=== PATIENT | male | born 1985 | race Caucasian/White ===

== ENCOUNTER 2023-01-25 17:04 | Emergency (ER) | payer OTHER, SELFPAY ==
[2023-01-25] VITALS (37 sets, daily range): BP systolic 109–136; BP diastolic 60–84; PULSE 75–103; RESP 0–26; TEMP 36.8; O2SAT 94–98; BMI 29.9
--- NOTE | 2023-01-25 17:21 | XR_ITS ---
The [address] [address] Patient Name: LIMA CASTILLO MRN: [id number] date: 1985 Sex: M Assigned Patient Location: ED.MAIN Current Patient Location: ER Accession/Order Number: [id number] Exam Date: 01/25/2023 17:30 Report Date: 01/25/2023 17:49 At the request of: DENIZ AWAD Procedure: XR chest 1V EXAMINATION: XR chest 1V HISTORY: Chest pain COMPARISON: X-ray 11/21/2021 TECHNIQUE: Portable chest FINDINGS: The lung parenchyma is free of consolidation or infiltrate. No pneumothorax or pleural effusion. The cardiac, mediastinal and hilar contours are normal. The visualized osseous structures exhibit no gross abnormality. XR/XR chest 1V IMPRESSION: No acute cardiopulmonary abnormality. Electronically authenticated by: FLORENCE WALTERS Date: 01/25/2023 17:49
--- NOTE | 2023-01-25 17:21 | ECG_ITS ---
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
--- NOTE | 2023-01-25 17:32 | ED_ITS ---
HPI - Chest Pain General Chief Complaint: Chest Pain Stated Complaint: CHEST PAIN Time Seen by Provider: 01/25/23 17:16 Source: patient Mode of arrival: walk-in Limitations: no limitations History of Present Illness HPI narrative: 37-year-old male presents for chest pain. He's had it continuously since 7:30 this morning ten hours ago. It's in the middle part of his chest and it doesn't radiate to his arms. His upper back is hurting a bit as well and he had no trauma fever or cough or unusual activity. He has had a pacemaker for three years for sick sinus syndrome. He states when he had his heart catheterization three years ago they found no blockage at all. The pain is moderate and a pressure. Related Data Home Medications Medication Instructions Recorded Confirmed AMPHETAMINE SALTS 10 mg PO DAILY 01/25/23 01/25/23 bupropion HCl 150 mg 24 hr tablet, 300 mg PO BID 01/25/23 01/25/23 extended release fludrocortisone 0.1 mg tablet 0.1 mg PO DAILY 01/25/23 01/25/23 lamotrigine 200 mg tablet 200 mg PO DAILY 01/25/23 01/25/23 (Lamictal) midodrine 10 mg tablet 10 mg PO TID PRN hypotension 01/25/23 01/25/23 pantoprazole 40 mg tablet,delayed 40 mg PO DAILY 01/25/23 01/25/23 release (Protonix) zolpidem 5 mg tablet (Ambien) 5 mg PO .BED 01/25/23 01/25/23 Allergies Allergy/AdvReac Type Severity Reaction Status Date / Time NSAIDS (Non-Steroidal AdvReac Intermediate Verified 01/25/23 17:17 Anti-Inflamma Review of Systems ROS Narrative A ten point review of systems is negative except as noted above. Exam Narrative Exam Narrative: Nurses note and vital signs reviewed and patient is not hypoxic. General: The patient appears well and in no apparent distress. Patient is resting comfortably on cart. Skin: Warm, dry, no pallor noted. There is no rash noted. Head: Normocephalic, atraumatic Eye: Normal conjunctiva, no drainage Ears, Nose, Mouth, and Throat: oral mucosa is moist. Nares patent. Cardiovascular: Regular Rate and Rhythm Respiratory: Patient is in no distress, no accessory muscle use, lungs are clear to auscultation, no wheezing, rales or rhonchi Back: non-tender GI: soft and nontender Musculoskeletal: The patient has no evidence of calf tenderness, no pitting edema, symmetrical pulses noted bilaterally Neurological: A&O, normal speech Psychiatric: Cooperative Constitutional Vital Signs, click to edit/add: Last Vital Signs Temp 98.2 F 01/25/23 17:09 Pulse 96 H 01/25/23 18:00 Resp 21 01/25/23 18:00 BP 136/84 01/25/23 17:30 Pulse Ox 96 01/25/23 17:50 O2 Del Method Room Air 01/25/23 17:09 Course Vital Signs Vital signs: Vital Signs Temperature 98.2 F 01/25/23 17:09 Pulse Rate 103 H 01/25/23 17:09 Respiratory Rate 26 H 01/25/23 17:09 Blood Pressure 132/83 01/25/23 17:09 Pulse Oximetry 98 01/25/23 17:09 Oxygen Delivery Method Room Air 01/25/23 17:09 Temperature 98.2 F 01/25/23 17:09 Pulse Rate 96 H 01/25/23 18:00 Respiratory Rate 21 01/25/23 18:00 Blood Pressure 136/84 01/25/23 17:30 Pulse Oximetry 96 01/25/23 17:50 Oxygen Delivery Method Room Air 01/25/23 17:09 MDM - Chest Pain MDM Narrative Medical decision making narrative: initial troponin is negative with repeat ordered. The patient will be signed out to Dr. Nolasco at 7 PM. Differential Diagnosis Differential diagnosis: Likely pneumothorax, unstable angina pectoris, atypical chest pain, st elevation myocardial infarction, costochondritis and chest pain Lab Data Attestation: I reviewed the patient's lab results. Labs: Lab Results 01/25/23 Range/Units 17:30 WBC 9.8 (4.0-11.0) 10^3/uL RBC 4.65 L (4.70-6.10) 10^6/uL Hgb 13.7 L (14.0-18.0) g/dL Hct 40.6 L (42.0-54.0) % MCV 87.3 (80.0-94.0) fL MCH 29.5 (25.9-34.0) pg MCHC 33.7 (29.9-35.2) g/dL RDW 12.7 (11.0-15.0) % Plt Count 253 (150-450) 10^3/uL MPV 9.9 (9.5-13.5) fL Neut % (Auto) 81.0 H (43.0-75.0) % Lymph % (Auto) 10.5 L (20.5-60.0) % [place] % (Auto) 6.6 (1.7-12.0) % Eos % (Auto) 1.3 (0.9-7.0) % Baso % (Auto) 0.3 (0.2-2.0) % Neut # (Auto) 8.0 H (1.4-6.5) 10^3/uL Lymph # (Auto) 1.0 L (1.2-3.8) 10^3/uL [place] # (Auto) 0.7 (0.3-0.8) 10^3/uL Eos # (Auto) 0.1 (0.0-0.7) 10^3/uL Baso # (Auto) 0.0 (0.0-0.1) 10^3/uL Abs Immat Gran (auto) 0.03 (0.00-0.03) 10^3/uL Imm/Tot Granulo (auto) 0.3 (0.0-0.5) % Sodium 142 (136-145) mmol/L Potassium 3.4 L (3.5-5.1) mmol/L Chloride 104 (98-107) mmol/L Carbon Dioxide 28.4 (21.0-32.0) mmol/L Anion Gap 13.0 BUN 16.0 (7.0-18.0) mg/dL Creatinine 0.99 (0.70-1.30) mg/dL Est GFR ( Amer) >60 (>=60) Est GFR (Non-Af Amer) >60 (>=60) BUN/Creatinine Ratio 16.2 Glucose 89 (74-106) mg/dL Calcium 9.0 (8.5-10.1) mg/dL Troponin I High Sens 4.1 (4.0-76.1) pg/mL Imaging Data Chest x-ray: Radiologist's impression: Procedure: XR chest 1V EXAMINATION: XR chest 1V HISTORY: Chest pain COMPARISON: X-ray 11/21/2021 TECHNIQUE: Portable chest FINDINGS: The lung parenchyma is free of consolidation or infiltrate. No pneumothorax or pleural effusion. The cardiac, mediastinal and hilar contours are normal. The visualized osseous structures exhibit no gross abnormality. IMPRESSION: No acute cardiopulmonary abnormality. Electronically authenticated by: FLORENCE WALTERS Date: 01/25/2023 17: ECG Data Attestation: I personally reviewed and interpreted this ECG as follows: (EKG on my interpretation shows atrial paced rhythm with a rate of 101 and no acute change.) Discharge Plan Discharge Patient Disposition: Still a Patient
[2023-01-25 17:37] LABS: Basophils Percent Auto 0.3 % (0.2-2.0); Eosinophils Absolute Auto 0.1 10^3/uL (0.0-0.7); Eosinophils Percent Auto 1.3 % (0.9-7.0); Hematocrit 40.6 % (42.0-54.0); Hemoglobin 13.7 g/dL (14.0-18.0); Immature Granulocytes Abs Auto 0.03 10^3/uL (0.00-0.03); Immature Granulocytes Pct Auto 0.3 % (0.0-0.5); Lymphocytes Percent Auto 10.5 % (20.5-60.0); Mean Corpuscular HGB Conc 33.7 g/dL (29.9-35.2); Mean Corpuscular Hemoglobin 29.5 pg (25.9-34.0); Mean Corpuscular Volume 87.3 fL (80.0-94.0); Mean Platelet Volume 9.9 fL (9.5-13.5); Monocytes Absolute Auto 0.7 10^3/uL (0.3-0.8); Monocytes Percent Auto 6.6 % (1.7-12.0); Platelet Count 253 10^3/uL (150-450); Red Blood Count 4.65 10^6/uL (4.70-6.10); Red Cell Distribution Width 12.7 % (11.0-15.0); White Blood Count 9.8 10^3/uL (4.0-11.0)
[2023-01-25 17:54] LABS: BUN Creatinine Ratio 16.2; Carbon Dioxide 28.4 mmol/L (21.0-32.0); Chloride 104 mmol/L (98-107); Estimated GFR (African America >60 (>=60); Estimated GFR (Non-African Ame >60 (>=60); Glucose 89 mg/dL (74-106); Potassium 3.4 mmol/L (3.5-5.1); Sodium 142 mmol/L (136-145); Troponin I High Sensitivity 4.1 pg/mL (4.0-76.1)
--- NOTE | 2023-01-25 19:36 | ECG_ITS ---
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
--- NOTE | 2023-01-25 19:43 | CT_ITS ---
[address] [address] Patient Name: LIMA CASTILLO MRN: [id number] date: 1985 Sex: M Assigned Patient Location: ER Current Patient Location: ER Accession/Order Number: [id number] Exam Date: 01/25/2023 20:45 Report Date: 01/25/2023 21:37 At the request of: MORA MARKER Procedure: CT angio chest CTA CHEST. INDICATION: History. COMPARISON: None available. TECHNIQUE: CT pulmonary angiogram. Initially, limited axial non-contrast images through chest obtained to establish proper bolus timing. Subsequently, contrast enhanced axial CT images were obtained through the chest. Axial, sagittal and coronal reformatted maximum intensity projection images and / or 3D volume rendered images created. FINDINGS: PULMONARY ARTERIES: No intraluminal filling defects within the central or segmental pulmonary arteries to suggest pulmonary embolism.. Normal RV:LV ratio (<1). AORTA: The thoracic aorta diameter is normal without aneurysm or dissection. LUNGS: There are right lower lobe airspace opacities. No pleural effusions.. No pneumothorax. LYMPH NODES: No enlarged mediastinal lymph nodes by CT criteria. HEART: Heart size is normal. No pericardial effusion. UPPER ABDOMEN: Images of the upper abdomen demonstrate no abnormality. MUSCULOSKELETAL: No acute osseous abnormality. CT/CT angio chest IMPRESSION: 1. No pulmonary thromboembolic disease. No aortic aneurysm or dissection. 2. Right lower lobe airspace opacities suggestive of pneumonia. Correlate clinically and recommend follow-up imaging. Electronically authenticated by: FLORES RICO Date: 01/25/2023 21:37
[2023-01-25] MEDS: ACETAMINOPHEN 325 MG TABLET 650 MG PO (20:00)
[2023-01-25 20:19] LABS: Troponin I High Sensitivity <4.0 pg/mL (4.0-76.1)
--- NOTE | 2023-01-25 21:52 | ED_ITS ---
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 Patient was signed out to me at shift change pending repeat troponin. I was alerted that he was having ongoing pain and a repeat EKG was ordered that was a paced rhythm at 87 bpm no acute changes. He also complained of a headache and was medicated with some Tylenol. Delta troponin and initial troponin were both normal at 4. CTA of the chest was done because the patient states he feels like he felt when his ejection fraction was very low and he was developing congestive heart failure. CTA of the chest shows a right lower lobe infiltrate. The patient has not had a fever or cough. His vital signs are stable. He will be medicated emergency department with Levaquin and discharged home with a Rx for Levaquin to use for the next 10 days. He is otherwise hemodynamically stable and in agreement with this plan. Related Data Home Medications Medication Instructions Recorded Confirmed AMPHETAMINE SALTS 10 mg PO DAILY 01/25/23 01/25/23 bupropion HCl 150 mg 24 hr tablet, 300 mg PO BID 01/25/23 01/25/23 extended release fludrocortisone 0.1 mg tablet 0.1 mg PO DAILY 01/25/23 01/25/23 lamotrigine 200 mg tablet 200 mg PO DAILY 01/25/23 01/25/23 (Lamictal) midodrine 10 mg tablet 10 mg PO TID PRN hypotension 01/25/23 01/25/23 pantoprazole 40 mg tablet,delayed 40 mg PO DAILY 01/25/23 01/25/23 release (Protonix) zolpidem 5 mg tablet (Ambien) 5 mg PO .BED 01/25/23 01/25/23 Allergies Allergy/AdvReac Type Severity Reaction Status Date / Time NSAIDS (Non-Steroidal AdvReac Intermediate Verified 01/25/23 17:17 Anti-Inflamma Exam Constitutional Vital Signs, click to edit/add: Last Vital Signs Temp 98.2 F 01/25/23 17:09 Pulse 88 01/25/23 22:20 Resp 13 01/25/23 22:20 BP 122/71 01/25/23 22:01 Pulse Ox 97 01/25/23 22:01 O2 Del Method Room Air 01/25/23 17:09 Course Vital Signs Vital signs: Vital Signs Temperature 98.2 F 01/25/23 17:09 Pulse Rate 103 H 01/25/23 17:09 Respiratory Rate 26 H 01/25/23 17:09 Blood Pressure 132/83 01/25/23 17:09 Pulse Oximetry 98 01/25/23 17:09 Oxygen Delivery Method Room Air 01/25/23 17:09 Temperature 98.2 F 01/25/23 17:09 Pulse Rate 88 01/25/23 22:20 Respiratory Rate 13 01/25/23 22:20 Blood Pressure 122/71 01/25/23 22:01 Pulse Oximetry 97 01/25/23 22:01 Oxygen Delivery Method Room Air 01/25/23 17:09 MDM - Chest Pain Lab Data Attestation: I reviewed the patient's lab results. Lab results narrative: Labs are normal, troponin normal ?2. BNP is normal at 32. Normal CBC w Diff. No bandemia. Labs: Lab Results 01/25/23 01/25/23 Range/Units 17:30 19:28 WBC 9.8 (4.0-11.0) 10^3/uL RBC 4.65 L (4.70-6.10) 10^6/uL Hgb 13.7 L (14.0-18.0) g/dL Hct 40.6 L (42.0-54.0) % MCV 87.3 (80.0-94.0) fL MCH 29.5 (25.9-34.0) pg MCHC 33.7 (29.9-35.2) g/dL RDW 12.7 (11.0-15.0) % Plt Count 253 (150-450) 10^3/uL MPV 9.9 (9.5-13.5) fL Neut % (Auto) 81.0 H (43.0-75.0) % Lymph % (Auto) 10.5 L (20.5-60.0) % [place] % (Auto) 6.6 (1.7-12.0) % Eos % (Auto) 1.3 (0.9-7.0) % Baso % (Auto) 0.3 (0.2-2.0) % Neut # (Auto) 8.0 H (1.4-6.5) 10^3/uL Lymph # (Auto) 1.0 L (1.2-3.8) 10^3/uL [place] # (Auto) 0.7 (0.3-0.8) 10^3/uL Eos # (Auto) 0.1 (0.0-0.7) 10^3/uL Baso # (Auto) 0.0 (0.0-0.1) 10^3/uL Abs Immat Gran (auto) 0.03 (0.00-0.03) 10^3/uL Imm/Tot Granulo (auto) 0.3 (0.0-0.5) % Sodium 142 (136-145) mmol/L Potassium 3.4 L (3.5-5.1) mmol/L Chloride 104 (98-107) mmol/L Carbon Dioxide 28.4 (21.0-32.0) mmol/L Anion Gap 13.0 BUN 16.0 (7.0-18.0) mg/dL Creatinine 0.99 (0.70-1.30) mg/dL Est GFR ( Amer) >60 (>=60) Est GFR (Non-Af Amer) >60 (>=60) BUN/Creatinine Ratio 16.2 Glucose 89 (74-106) mg/dL Calcium 9.0 (8.5-10.1) mg/dL Troponin I High Sens 4.1 <4.0 L (4.0-76.1) pg/mL NT-Pro-B Natriuret Pep 32.0 (<=450.0) pg/mL Heart Score History: Slightly/Non-Suspicious ECG: NS Repolarization Age: <45 years Risk Factors: No Risk Factors Troponin: <Normal Limit Total Heart Score Recommendations & Risks:: 1 Discharge Plan Discharge Chief Complaint: Chest Pain Clinical Impression: Chest pain, RLL pneumonia Patient Disposition: Home, Self-Care Time of Disposition Decision: 22:00 Condition: Good Prescriptions / Home Meds: No Action midodrine 10 mg tablet 10 mg PO TID PRN (Reason: hypotension) Rx Instructions: do not give last dose of day after 6PM or within 4 hrs of bedtime lamotrigine [Lamictal] 200 mg tablet 200 mg PO DAILY bupropion HCl 150 mg tablet extended release 24 hr 300 mg PO BID pantoprazole [Protonix] 40 mg tablet,delayed release (DR/EC) 40 mg PO DAILY fludrocortisone 0.1 mg tablet 0.1 mg PO DAILY AMPHETAMINE SALTS 10 mg PO DAILY zolpidem [Ambien] 5 mg tablet 5 mg PO .BED Instructions: Chest Pain (ED), Community Acquired Pneumonia (ED) Stand Alone Forms: Portal Instructions Referrals: Physician,Non-Staff, MD [Primary Care Provider] - 1 week Discharge Date/Time: 01/25/23 23:50
[2023-01-25] MEDS: LEVOFLOXACIN IN DEXTROSE 5 % 750 MG/150 ML IV.SOLN 100 MG IV (22:10)
== END 2023-01-25 23:50 | disposition home or self-care (01) ==
PROVIDERS: Emergency Medicine; Emergency Provider Emergency Medicine
DX: J18.9 Pneumonia, unspecified organism (principal); R07.9 Chest pain, unspecified; G90.A Postural orthostatic tachycardia syndrome [POTS]; I49.5 Sick sinus syndrome; Z79.899 Other long term (current) drug therapy
CPT/HCPCS: 36415; 71045; 71275; 80048; 83880; 84484; 85025; 93005; 96365; 96366; 99285; Q9967

== ENCOUNTER 2023-09-16 17:10 | Emergency (ER) | payer OTHER, SELFPAY ==
[2023-09-16] VITALS (8 sets, daily range): BP systolic 119–142; BP diastolic 72–92; PULSE 76–88; TEMP 36.9; O2SAT 96–99; BMI 31.3
--- NOTE | 2023-09-16 17:22 | ECG_ITS ---
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
--- NOTE | 2023-09-16 17:23 | ED.GENADUL1 ---
HPI HPI - General Adult General Chief complaint: Chest Pain Stated complaint: CHEST PRESSURE, SOB, FATIGUE Time Seen by Provider: 09/16/23 17:20 History of Present Illness HPI narrative: Patient is a 37-year-old male who presents to the emergency department for the evaluation of continued and worsening chest pressure, generalized fatigue and feeling short of breath. He has a history of sick sinus syndrome and has a pacemaker in place. He sees [facility] cardiology for that. He states he was seen mid August for continued central chest pressure and fatigue with a sensation of palpitations and atrial tachycardia which is not uncommon for him. He states an EP study with ablation was ordered as well as an outpatient echo although this cannot be completed for another month. Patient states he has had no fevers, chills, cough, congestion. No swelling of the extremities. No vomiting or diarrhea. Related Data Home Medications ?Medication ?Instructions ?Recorded ?Confirmed AMPHETAMINE SALTS 10 mg PO DAILY 01/25/23 09/16/23 bupropion HCl 150 mg 24 hr tablet, See Rx Instructions PO BID 01/25/23 09/16/23 extended release fludrocortisone 0.1 mg tablet 0.1 mg PO DAILY 01/25/23 09/16/23 lamotrigine 200 mg tablet 200 mg PO DAILY 01/25/23 09/16/23 (Lamictal) midodrine 10 mg tablet 10 mg PO TID PRN hypotension 01/25/23 09/16/23 pantoprazole 40 mg tablet,delayed 40 mg PO DAILY 01/25/23 09/16/23 release (Protonix) zolpidem 5 mg tablet (Ambien) 5 mg PO .BED PRN insomnia 01/25/23 09/16/23 Allergies Allergy/AdvReac Type Severity Reaction Status Date / Time NSAIDS (Non-Steroidal AdvReac Intermediate Verified 09/16/23 17:20 Anti-Inflamma Opioid HPI Opioid Management Most Recent Opioid Data: Last Pain Scale 6 09/16/23 18:07 Last ED Pain Assessment 09/16/23 18:07 Last MAR Pain Assessment 09/16/23 17:44 Review of Systems ROS Constitutional Denies: fever or chills Ears, nose, mouth, and throat Denies: throat pain or nasal congestion Cardiovascular Reports: chest pain Respiratory Reports: shortness of breath; Denies: cough Gastrointestinal Denies: nausea or vomiting Musculoskeletal Denies: back pain Integumentary/Breast Denies: rash Endocrine Denies: excessive urination Hematologic/Lymphatic Denies: easy bruising or easy bleeding Exam Narrative Exam Narrative: Gen.: Awake, alert, in no distress Head: Normocephalic, atraumatic ENT: Moist mucous membranes Respiratory: No respiratory distress, lungs clear bilaterally Cardio: Regular rate and rhythm Extremities: Moves extremities equally, no pedal edema Psych: Normal mood and affect Neuro: No focal neuro deficit Skin: Warm, dry, intact Constitutional Vital Signs, click to edit/add: Last Vital Signs Temp 98.5 F 09/16/23 17:22 Pulse 76 09/16/23 19:00 Resp 17 09/16/23 19:00 BP 119/72 09/16/23 18:30 Pulse Ox 98 09/16/23 19:00 O2 Del Method Room Air 09/16/23 17:22 Course Vital Signs Vital signs: Vital Signs Pulse Rate 88 09/16/23 17:18 Respiratory Rate 21 H 09/16/23 17:18 Temperature 98.5 F 09/16/23 17:22 Pulse Rate 76 09/16/23 19:00 Respiratory Rate 17 09/16/23 19:00 Blood Pressure 119/72 09/16/23 18:30 Pulse Oximetry 98 09/16/23 19:00 Oxygen Delivery Method Room Air 09/16/23 17:22 Medical Decision Making [facility] Narrative Medical decision making narrative: EKG is unremarkable, lab studies including Troponin and D-dimer are within normal limits. Chest x-ray is unremarkable, case discussed with Dr. Reaves [facility] cardiology was in agreement with treatment plan. 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 Patient is stable at time of discharge. Medical Records Medical records reviewed: Yes I reviewed the patient's medical records Lab Data Lab results reviewed: Yes I reviewed the patient's lab results Labs: Lab Results 09/16/23 Range/Units 17:30 WBC 6.7 (4.0-11.0) 10^3/uL RBC 4.87 (4.70-6.10) 10^6/uL Hgb 13.8 L (14.0-18.0) g/dL Hct 42.1 (42.0-54.0) % MCV 86.4 (80.0-94.0) fL MCH 28.3 (25.9-34.0) pg MCHC 32.8 (29.9-35.2) g/dL RDW 12.7 (11.0-15.0) % Plt Count 311 (150-450) 10^3/uL MPV 9.7 (9.5-13.5) fL Neut % (Auto) 72.8 (43.0-75.0) % Lymph % (Auto) 16.8 L (20.5-60.0) % [place] % (Auto) 7.1 (1.7-12.0) % Eos % (Auto) 2.3 (0.9-7.0) % Baso % (Auto) 0.8 (0.2-2.0) % Neut # (Auto) 4.9 (1.4-6.5) 10^3/uL Lymph # (Auto) 1.1 L (1.2-3.8) 10^3/uL [place] # (Auto) 0.5 (0.3-0.8) 10^3/uL Eos # (Auto) 0.2 (0.0-0.7) 10^3/uL Baso # (Auto) 0.1 (0.0-0.1) 10^3/uL Abs Immat Gran (auto) 0.01 (0.00-0.03) 10^3/uL Imm/Tot Granulo (auto) 0.2 (0.0-0.5) % PT 10.2 (9.0-11.6) sec INR 0.96 D-Dimer 0.27 (<=0.59) mg/L FEU Sodium 143 (136-145) mmol/L Potassium 3.8 (3.5-5.1) mmol/L Chloride 106 (98-107) mmol/L Carbon Dioxide 30.3 (21.0-32.0) mmol/L Anion Gap 10.5 BUN 15.0 (7.0-18.0) mg/dL Creatinine 0.90 (0.70-1.30) mg/dL Est GFR ( Amer) >60 (>=60) Est GFR (Non-Af Amer) >60 (>=60) BUN/Creatinine Ratio 16.7 Glucose 105 (74-106) mg/dL Calcium 9.4 (8.5-10.1) mg/dL Total Bilirubin 0.3 (0.2-1.0) mg/dL AST 19 (15-37) U/L ALT 37 (16-63) U/L Alkaline Phosphatase 87 (46-116) U/L Troponin I High Sens 5.7 (4.0-76.1) pg/mL NT-Pro-B Natriuret Pep 16.0 (<=450.0) pg/mL Total Protein 7.0 (6.4-8.2) g/dL Albumin 4.0 (3.4-5.0) g/dL Globulin 3.0 g/dL Albumin/Globulin Ratio 1.3 Imaging Data Chest x-ray: Attestation: I have reviewed the pertinent imaging results. Radiologist's impression: ITS Impressions Chest X-Ray 09/16/23 18:06 IMPRESSION: No acute disease. Electronically authenticated by: STEPHON CHAVEZ Date: 09/16/2023 18:53 ECG Data Attestation: I personally reviewed and interpreted this ECG as follows: (Normal electronic atrial pacemaker at a rate of 88 with incomplete right bundle branch block, no acute ST elevation or ectopy. EKG reviewed by attending physician) Discharge Plan Discharge Stand Alone Forms: Portal Instructions Chief Complaint: Chest Pain Clinical Impression: Chest pain Patient Disposition: Home, Self-Care Time of Disposition Decision: 18:45 Prescriptions / Home Meds: No Action midodrine 10 mg tablet 10 mg PO TID PRN (Reason: hypotension) Rx Instructions: do not give last dose of day after 6PM or within 4 hrs of bedtime lamotrigine [Lamictal] 200 mg tablet 200 mg PO DAILY bupropion HCl 150 mg tablet extended release 24 hr See Rx Instructions PO BID Rx Instructions: 2TABS AM , 1 TAB PM orally twice a day; pantoprazole [Protonix] 40 mg tablet,delayed release (DR/EC) 40 mg PO DAILY fludrocortisone 0.1 mg tablet 0.1 mg PO DAILY AMPHETAMINE SALTS 10 mg PO DAILY zolpidem [Ambien] 5 mg tablet 5 mg PO .BED PRN (Reason: insomnia) Print Language: Lao Instructions: Chest Pain (ED) Additional Instructions: Please contact [facility] cardiology clinic, they can reevaluate you in the office and give you further instructions Referrals: Physician,Non-Staff, MD [Primary Care Provider] - 1 week
[2023-09-16] MEDS: ONDANSETRON PF 4 MG/2 ML VIAL IV (17:42)
[2023-09-16] MEDS: FENTANYL CITRATE/PF 100 MCG/2 ML VIAL 50 MCG IV (17:44)
[2023-09-16 17:47] LABS: Basophils Absolute Auto 0.1 10^3/uL (0.0-0.1); Basophils Percent Auto 0.8 % (0.2-2.0); Eosinophils Absolute Auto 0.2 10^3/uL (0.0-0.7); Eosinophils Percent Auto 2.3 % (0.9-7.0); Hematocrit 42.1 % (42.0-54.0); Hemoglobin 13.8 g/dL (14.0-18.0); Immature Granulocytes Abs Auto 0.01 10^3/uL (0.00-0.03); Immature Granulocytes Pct Auto 0.2 % (0.0-0.5); Lymphocytes Absolute Auto 1.1 10^3/uL (1.2-3.8); Lymphocytes Percent Auto 16.8 % (20.5-60.0); Mean Corpuscular HGB Conc 32.8 g/dL (29.9-35.2); Mean Corpuscular Hemoglobin 28.3 pg (25.9-34.0); Mean Corpuscular Volume 86.4 fL (80.0-94.0); Mean Platelet Volume 9.7 fL (9.5-13.5); Monocytes Absolute Auto 0.5 10^3/uL (0.3-0.8); Monocytes Percent Auto 7.1 % (1.7-12.0); Neutrophils Absolute Auto 4.9 10^3/uL (1.4-6.5); Neutrophils Percent Auto 72.8 % (43.0-75.0); Platelet Count 311 10^3/uL (150-450); Red Blood Count 4.87 10^6/uL (4.70-6.10); Red Cell Distribution Width 12.7 % (11.0-15.0); White Blood Count 6.7 10^3/uL (4.0-11.0)
[2023-09-16 17:57] LABS: D Dimer 0.27 mg/L FEU (<=0.59); INR 0.96; Prothrombin Time 10.2 sec (9.0-11.6)
[2023-09-16 17:58] LABS: Alanine Aminotransferase 37 U/L (16-63); Albumin Globulin Ratio 1.3; Alkaline Phosphatase 87 U/L (46-116); Anion Gap 10.5; Aspartate Amino Transferase 19 U/L (15-37); BUN Creatinine Ratio 16.7; Bilirubin Total 0.3 mg/dL (0.2-1.0); Calcium 9.4 mg/dL (8.5-10.1); Carbon Dioxide 30.3 mmol/L (21.0-32.0); Chloride 106 mmol/L (98-107); Estimated GFR (African America >60 (>=60); Estimated GFR (Non-African Ame >60 (>=60); Glucose 105 mg/dL (74-106); Potassium 3.8 mmol/L (3.5-5.1); Sodium 143 mmol/L (136-145)
[2023-09-16 18:05] LABS: Troponin I High Sensitivity 5.7 pg/mL (4.0-76.1)
--- NOTE | 2023-09-16 18:06 | XR_ITS ---
[address] [address] Patient Name: LIMA CASITLLO MRN: [id number] date: 1985 Sex: M Assigned Patient Location: ER Current Patient Location: ED.MAIN Accession/Order Number: [id number] Exam Date: 09/16/2023 18:17 Report Date: 09/16/2023 18:53 At the request of: FARAZ MOMIN Procedure: XR chest 1V EXAM: XR chest 1V HISTORY: chest pain COMPARISON: 01/25/2023 TECHNIQUE: Frontal view of the chest. FINDINGS: No focal consolidations or pleural effusions. Cardiac mediastinal silhouette is unremarkable. Left-sided dual-lead pacemaker. Visualized osseous structures are unremarkable. XR/XR chest 1V IMPRESSION: No acute disease. Electronically authenticated by: STEPHON CHAVEZ Date: 09/16/2023 18:53
== END 2023-09-16 19:17 | disposition home or self-care (01) ==
PROVIDERS: Physician Assistant; Emergency Provider Emergency Medicine
DX: R07.9 Chest pain, unspecified (principal); Z95.0 Presence of cardiac pacemaker; Z79.899 Other long term (current) drug therapy; R06.02 Shortness of breath
CPT/HCPCS: 36415; 71045; 80053; 83880; 84484; 85025; 85378; 85610; 93005; 96374; 96375; 99285

== ENCOUNTER 2023-09-17 10:55 | Outpatient (OUT) | payer OTHER, SELFPAY ==
--- NOTE | 2023-09-17 11:00 | CA_ITS ---
Patient Name: LIMA CASTILLO MR#: [id number] : 1985 Exam Date: 09/17/2023 Ordering Doctor: YANICK LUBIN CNP ECHOCARDIOGRAM REPORT PROCEDURE: CA ECHO DOPPLER COMPLETE INDICATIONS: Chronic heart failure, Shortness of breath, pacemaker COMPARISON: None. DESCRIPTION: COMPLETE ECHOCARDIOGRAM Real-time transthoracic echocardiography with 2D, M-mode, spectral and color flow Doppler performed. QUALITY: Technical quality was good. 66 , 194#, BSA 1.97 m2, BP 118/84 LEFT VENTRICLE: Normal chamber size. Mild concentric left ventricular hypertrophy. Normal systolic function. LV EF: Normal left ventricular ejection fraction, (55-60%). DIASTOLIC: Normal diastolic function. ATRIAL SEPTUM: Visually appears intact. LEFT ATRIUM: Normal chamber size. RIGHT ATRIUM: Normal chamber size. RIGHT VENTRICLE: Normal chamber size. Normal systolic function. Pacer wire present. TRICUSPID VALVE: Normal mobility and thickness. No stenosis with trivial regurgitation. Doppler studies reveal moderately (45-60) elevated right sided pressures. RVSP 50 mmHg MITRAL VALVE: Normal mobility and thickness. No evidence of mitral valve stenosis. There is no mitral annular calcification. No mitral regurgitation. AORTIC VALVE: Normal trileaflet appearance. No visible sclerosis. Normal leaflet mobility. No evidence of aortic valve stenosis. No aortic regurgitation. AORTIC ROOT: Normal diameter and appearance. Ascending aorta is normal in size. PULMONIC VALVE: Normal thickness and mobility. No stenosis. Trivial regurgitation. PERICARDIUM: No evidence of pericardial effusion. IVC: Collapses with inspirations. PLEURA: CONCLUSION: 1. Normal ventricular function. LVEF is 55 to 60%. 2. No significant valvular dysfunction. 3. Moderately elevated right-sided pressures. RVSP is 50 mmHg. Adult Echocardiography Procedure Report Left Ventricle LVEDD (3.7 - 5.6 cm): 4.21 cm LVESD (2.2 - 4.0 cm): 3.32 cm LVIVS thickness (0.6 - 1.2 cm): 1.19 cm LVPW thickness (0.5 - 1.0 cm): 1.06 cm E - e': 4.11 LVOT Max Gradient: 5.11 mm[Hg], 4.54 mm[Hg] Peak Velocity (LVOT): 1.13 m/s, 1.06 m/s LVOT Diameter 2.18 cm Left Atrium Left Atrium Systolic Dimension: 3.69 cm Mitral Valve MV E to A Ratio: 1.37, 1.45 Right Ventricle Aorta AO Root Diam: 3.23 cm Ascending Ao Diam: 2.87 cm Aortic Valve AoV Area (Peak Mehdi): 3.38 cm2, 3.38 cm2 AoV Area (VTI): 2.94 cm2, 2.91 cm2 Peak Velocity(Antegrade Flow): 1.24 m/s Peak Gradient(Antegrade Flow): 6.20 mm[Hg] Mean Velocity(Antegrade Flow): 0.86 m/s Mean Gradient(Antegrade Flow): 3.42 mm[Hg] Velocity Time Integral: 24.84 cm Tricuspid Valve Peak Velocity (Regurgitant Flow): 3.42 m/s Pulmonic Valve Peak Gradient: 7.92 mm[Hg], 8.33 mm[Hg] Right Atrium Dictated by: Carlos Rodriguez M.D. on 09/17/2023 at 18:30 Approved by: Carlos Rodriguez M.D. on 09/17/2023 at 18:35
== END 2023-09-17 10:56 | disposition home or self-care (01) ==
LOC: CARD 10:57
PROVIDERS: Visit Provider Nurse Practitioner Family
DX: I50.22 Chronic systolic (congestive) heart failure (principal); R06.02 Shortness of breath
CPT/HCPCS: 93306

== ENCOUNTER 2023-10-01 09:54 | Outpatient (OUT) | payer OTHER, SELFPAY ==
[2023-10-01 10:47] LABS: Basophils Percent Auto 0.6 % (0.2-2.0); Eosinophils Absolute Auto 0.1 10^3/uL (0.0-0.7); Eosinophils Percent Auto 2.7 % (0.9-7.0); Hematocrit 41.5 % (42.0-54.0); Hemoglobin 13.8 g/dL (14.0-18.0); Immature Granulocytes Abs Auto 0.01 10^3/uL (0.00-0.03); Immature Granulocytes Pct Auto 0.2 % (0.0-0.5); Lymphocytes Absolute Auto 1.2 10^3/uL (1.2-3.8); Mean Corpuscular HGB Conc 33.3 g/dL (29.9-35.2); Mean Corpuscular Hemoglobin 28.6 pg (25.9-34.0); Mean Corpuscular Volume 85.9 fL (80.0-94.0); Mean Platelet Volume 9.8 fL (9.5-13.5); Monocytes Absolute Auto 0.4 10^3/uL (0.3-0.8); Monocytes Percent Auto 7.3 % (1.7-12.0); Neutrophils Absolute Auto 3.5 10^3/uL (1.4-6.5); Neutrophils Percent Auto 66.2 % (43.0-75.0); Platelet Count 255 10^3/uL (150-450); Red Blood Count 4.83 10^6/uL (4.70-6.10); Red Cell Distribution Width 12.8 % (11.0-15.0); White Blood Count 5.2 10^3/uL (4.0-11.0)
[2023-10-01 11:03] LABS: Anion Gap 11.7; BUN Creatinine Ratio 16.5; Carbon Dioxide 30.8 mmol/L (21.0-32.0); Chloride 104 mmol/L (98-107); Estimated GFR (African America >60 (>=60); Estimated GFR (Non-African Ame >60 (>=60); Glucose 111 mg/dL (74-106); Potassium 3.5 mmol/L (3.5-5.1); Sodium 143 mmol/L (136-145)
== END 2023-10-01 09:55 | disposition home or self-care (01) ==
LOC: LAB 09:56
PROVIDERS: Visit Provider Nurse Practitioner Family
DX: I47.10 Supraventricular tachycardia, unspecified (principal)
CPT/HCPCS: 36415; 80048; 85025

== ENCOUNTER 2025-03-05 22:50 | Emergency (ER) | payer OTHER, SELFPAY ==
--- OUTSIDE RECORDS SUMMARY | 2014-08-02 05:30 | XMS_ITS | Continuity of Care Document ---
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 Enterprise Business Architect Name Role Phone Sai Salinas MD, MD Unavailable Unavailable Allergies, Adverse Reactions, Alerts Substance Reaction Status Criticality No Known Allergies Active No Inform ation Procedures Procedure Date OFFICE/OUTPATIENT VISIT, [facility] Advance Directives Directive Yes / No Effective Date File Name No Information Encounters Encounter Description Practice Location Reason(s) For Visit Diagnoses Date Provider Providers Copied on Encounter OFFICE/OUTPATI ENT VISIT, [facility], [address], [place], [place], [id number], [place] tel:[phone] [facility] est pcp (chief complaint) Acute dysfunction of Eustachian tube Rita Gibbs. [address], [place], [place], [id number], [place]. tel:[phone] Referring Provider: Sai Varela, [address], [place], [address]. tel:[phone] Family History Family Member Type Diagnosis Age At Onset Brother Problem (finding) Leukemia Payers Payer name Insurance type Covered constitution party ID Authordeloris gonzalez(s) Liat CI [id number] Social History Type Description Quantity Date Captured Comments Alcohol Use Details beer 12 pack weekly Caffeine Use Details 1-2 per day Tobacco Use Status Ex-cigarette smoker 015 Smoking Status Former smoker Smoking Tobacco Use Details Cigarette: Age Stopped: 27 Cigarette: No Details Available [id number] SexMale Vital Signs Date / Time: Height Weight BMI Pulse Rate Blood Pressure Temperature Respiratory Rate Body Surface Area Head Circumference Head Circ. Percentile Wt./Brian. Percentile BMI percentile Pulse Ox Inhaled Ox 9:46 AM 67.50 in 114.759 kg (253.00 lbs) 39.0 4 kg/m eter (2) 64 /min 140/88 mm[Hg] 18 /min Chief Complaint And Reason For Visit From encounter dated '08/02/2014 09:30'. est pcp (chief complaint). Description: [facility] [employer] [facility], saw in urgent care on Sun for double ear inf, on amox Reason For Referral Reason For Referral No Information History Of Present Illness Encounter Date Complaint History Of Prese nt Illness est pcp saw Josette in [employer] previously, saw in urgent care on Sun for double ear inf, on amox est pcp (comments) no regular me dications. has been sick for about x2 weeks. hearing loss in the L ear. feels there is water or something in his L ear, but does not feel anything moving. nasal congestion. PND. coughing up mucus. has been using nyquil and dayquil. Functional Status Date Functional Assessmen t No Information Instructions Date Instruction Additional Infor mation No Information Assessments Type Assessment Date assessment Acute dysfunction of Eustachian tube Mental Status Date Cognitive Assessment Orientation - [place] ed to time, place, person, situation. Patient Care Teams Name Effective Dates (start - stop) Status Members No Information
--- OUTSIDE RECORDS SUMMARY | 2025-03-05 22:58 | XMS_ITS | Clinical Summary ---
Author Organization [facility] tem Address [id number] [address] [place] [address] Care Team Providers Care Movement Therapist Name Role Phone No Pcp, No Pcp Primary Care Provider Unavailabl e Allergies No known active allergies Medications No known medications Social History Tobacco UseTypesPacks/DayYears UsedDateSmoking Tobacco: NeverSmokeless Tobacco: Never Tobacco Cessation:Counseling Given: Not Answered Alcohol UseStandard Drinks/WeekCommentsYes0 (1 standard drink = 0.6 oz pure alcohol)ChildcareAnswerDate TrsisyhaBtkbncjyhQvdenlm10/05/2020EmploymentAnswer Date XttifdaaQyhvwrumtiCnqzvmo63/05/2020Hunger ScreeningAnswerDate Recorded Within the past 12 months we worried whether our food would run out before we got money to buy more.Never True09/20/2023Within the past 12 months the food we bought just didn't last and we didn't have money to get more.Never True 4Purpose - LifeAnswerDate RecordedPurpose and direction in lifeUnknown 06/20/2020ex and Gender InformationValueDate RecordedSex Assigned at BirthNot on fileLegal JngBavk9112/13/2014 11:45 AM EDTGender IdentityNot on fileSexual OrientationNot on file Last Filed Vital Signs Vital SignReadingTime TakenCommentsBlood Mxodjlmv455/8909/21/2023 1:15 AM EDT Zksge458409/21/2023 1:15 AM RGJPqqbasmdwkx62.6 ??C (97.8 ??F)09/20/2023 9:57 PM EDTRespiratory Atex300209/21/2023 1:15 AM EDTOxygen Yjlfngkama52%09/21/2023 1:15 AM EDTInhaled Oxygen Concentration--Ouxpmz95 kg (194 lb)09/20/2023 9:57 PM EDT Bqqmvi520.6 cm (5' 6 )09/20/2023 9:57 PM EDTBody Mass Index31.31009/20/2023 9:57 PM EDT Plan of Treatment Health MaintenanceDue DateLast DoneCommentsDepression Hwxcsurni67/27/2000 DTaP,Tdap and Td Vaccines (1 - Tdap)11/03/2006dult BMI Uhsqoaylp05/13/2025 09/20/2023Tobacco Rdzmjbbgq41Influenza Daafxxy9501/08/2025 Medical Devices Not on file Insurance Care Teams Team MemberRelationshipSpecialtyStart DateEnd Date No Pcp, [place] [id number] [facility]
--- OUTSIDE RECORDS SUMMARY | 2025-03-05 22:58 | XMS_ITS | Clinical Summary ---
Author Organization [facility] Address [address] [place] [address] Care Team Providers Care Forensic Pathologist Name Role Phone Zaheer Freitas MD Primary Care Provider [phone] Allergies Active AllergyReactionsCriticalityNoted DateCommentsNsaids (Non-Steroidal Anti- Inflammatory Drug)10/30/2019 Previous gastric sleeve surgery; causes GI bleed Medications MedicationSigDispense QuantityRefillsLast FilledStart DateEnd DateStatus amphetamine-dextroamphetamine XR (Adderall XR) 20 mg 24 hr capsule Take 20 mg by mouth in the morning.03/25/2021ctive buPROPion SR (Wellbutrin SR) 150 mg 12 hr tablet Take 150 mg by mouth in the morning. 2 tabs AM, 1 tab PM.Active lamoTRIgine (LaMICtal) 200 mg tablet Take 300 mg by mouth in the morning.Active pantoprazole (ProtoNix) 40 mg EC tablet Take 40 mg by mouth in the morning.Active SUMAtriptan (Imitrex) 25 mg tablet Take 25 mg by mouth if needed each day.Active amphetamine-dextroamphetamine (Adderall) 10 mg tablet Take 20 mg by mouth in the morning. 20mg XR in AM, 10mg immediate release PM Active fludrocortisone (Florinef) 0.1 mg tablet Indications:PacemakerTake 1 tablet (0.1 mg) by mouth in the morning. 90 tablet ctive furosemide (Lasix) 20 mg tablet Indications:Edema, unspecified typeTake 1 tablet (20 mg) by mouth in the morning and at bedtime. 180 tablet 305/14/2024Active midodrine (Proamatine) 10 mg tablet Indications:Orthostatic hypotensionTake 1 tablet (10 mg) by mouth two times daily. 180 tablet 5Active cholecalciferol (Vitamin D-3) 25 MCG (1000 units) tablet Take 3 tablets by mouth in the morning.4Active Active Problems ProblemNoted DateDiagnosed DateBipolar II lmimidmd97/16/2024urrent smoker 11/23/20234013Iysaiscgrk86/16/5777Ogvzrlksyoic71/16/2024Flexural zmznuq2211/23/2023 Inguinal pain11/23/2023Metatarsalgia, unspecified foot11/23/2023Muscle strain 11/23/20234153Gdhgcm06/16/2024Need for prophylactic vaccination with combined wzinmyifgn-ebphnae-qvoevjdct (DTP) siozqco0211/23/2023bnormal echocardiogram 09/21/2023SVT (supraventricular tachycardia)09/03/2023Orthostatic hypotension 2022 Assessment & Plan (2022 10:16 AM EDT): - history of orthostatic hypotension and has been on midodrine 10 mg twice daily as needed and fludrocortisone 0.1 mg daily - he does take midodrine pretty regularly and hypotension is controlled - continue medication Sick sinus ezbdhlip14/07/2021 Assessment & Plan (2022 10:14 AM EDT): - 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 - follow-up with device clinic as scheduled Reinfection by COVID-19 virus12/13/2020Initial mfthzebz06/16/2020Chronic post- traumatic stress /11/2020Paroxysmal atrial rqhytpatxosc40/09/2020Mood avmqxljz79/03/2020Encounter for long-term (current) use of xnyobfp3310/11/2019 Attention deficit hyperactivity pbwtlqlo68/03/6433Woujkvc62/01/2020Abnormal tilt table test06/10/2019S/P laparoscopic sleeve qhgbamrweex35/01/2020History of sick sinus poymrqpt68/01/2020Decreased cardiac ejection tobvgwig35/01/2020Left ventricular systolic eftvtzuigyw26/16/2020 Assessment & Plan (2022 10:14 AM EDT): - history of reduced EF, last echo 11/2021 showed normal EF and normal LV function and size Cardiac pacemaker in situ05/23/2019 Assessment & Plan (2022 10:14 AM EDT): - device normal function and stable thresholds - due for device check in 1 month, will have patient request see if they can increase heart rate limit to 70 as he thinks he will feel better there because he has noticed a difference in energy sincegoing down to 60 bpm - had an episode of atrial tachycardia for now we will continue to monitor Family History RelationNameStatusCommentsBrotherAliveFatherAliveMotherAliveSisterAlive Social History Tobacco UseTypesPacks/DayYears UsedDateSmoking Tobacco: FormerCigarettesPassive Smoke Exposure: PastSmokeless Tobacco: Never Tobacco Cessation:Counseling Given: Not Answered Alcohol UseStandard Drinks/WeekCommentsYes0 (1 standard drink = 0.6 oz pure alcohol)occasionalUT Safety & EnvironmentAnswerDate RecordedFear of Current or Ex-PartnerNot on file07/01/2023Emotionally AbusedNot on file07/01/2023hysically AbusedNot on file07/01/2023Sexually AbusedNot on file07/01/2023hysically or Sexually AbusedNot on file07/01/2023Sex and Gender InformationValueDate Recorded Sex Assigned at BirthNot on fileLegal OwjYxyh0411/06/2021 12:22 AM EDTGender IdentityNot on fileSexual OrientationNot on file Last Filed Vital Signs Vital SignReadingTime TakenCommentsBlood Wzadhyut244/8609/19/2024 4:13 PM EDT Rhyin540609/19/2024 4:13 PM EDTTemperature--Respiratory Ueco394610/06/2023 5:45 PM EDTOxygen Uyioqpynxa50%09/19/2024 4:13 PM EDTInhaled Oxygen Concentration-- Epdqij35.6 kg (191 lb)09/19/2024 4:13 PM PPIQxouqz213.6 cm (5' 6 )09/19/2024 4:13 PM EDTBody Mass Index30.8309/19/2024 4:13 PM EDT Plan of Treatment DateTypeDepartmentCare Team (Latest Contact Info)Hymaleagxqh73/04/2025 9:15 AM ESTAncillary Procedure [facility] [address] [facility] [place] [phone] 03/13/2025 9:30 AM ESTOffice Visit [facility] [address] [facility] [place] [phone] Madhu Morgan MD [address] [place] [address] Health MaintenanceDue DateLast DoneCommentsDepression Mqufcojon29/27/2000 Pneumococcal Vaccine: Pediatrics (0 to 5 Years) and At-Risk Patients (6 to 64 Years) (1 of 2 - PCV)11/03/2006Varicella Vaccines (1 of 2 - 13+ 2-dose series) 04/24/2010HPV Vaccines (1 - 3-dose SCDM series)11/03/2014COVID-19 Vaccine (1 - 2024- season)2025Influenza Vaccine (#1)5105/27/2009, 04/18/2009, 02/19/2009dult Wkawzow00, 02/14/2009, 12/06/2000Zoster Vaccines (1 of 2)11/03/2037HIB OzmoqvxeJqoapfynb91/26/1990IPV VaccinesCompleted 02/14/2009, 02/24/1991, 06/02/1988, Additional history existsMeningococcal VaccineAged Out02/14/2009No longer eligible based on patient's age to complete this topicHepatitis B SbrpkauiNvduqtuzj02/28/2010, 04/25/2009, 02/19/2009, Additional history existsMeningococcal B VaccineAged OutNo longer eligible based on patient's age to complete this topicRotavirus VaccinesAged OutNo longer eligible based on patient's age to complete [place] [address] Advance Directives TypeDate RecordedPatient RepresentativeExplanationPower of Attorney09/08/2022 1:20 PMPOA Care Teams Team MemberRelationshipSpecialtyStart DateEnd Date Zaheer Freitas MD [address] [facility]04/27/23
--- OUTSIDE RECORDS SUMMARY | 2025-03-05 22:58 | XMS_ITS | CCD ---
Author Organization [facility] Informat ion [facility] PLATFORM MILL SUPERVISOR [facility] Care Team Providers Care Mouse Breeder Name Role Phone Unavailable Primary Care Provider UnavailTracey Hoyt Primary Care Provider Tracey Saunders DO Primary Care Provider Unavaila Alexa Borja Unavailable MADHU SWIFT Attending Unavailable MADHU SWIFT Admitting Unavailable UNKNOWN, PHYSICIAN Primary Care Unavailable SELF, REFERRED Referring Unavailable PCP, Other Primary Care Physician [phone] Gema Kevin Unavailable PCP, OTHER Primary Care Unavailable Saba Velásquez Attending Unavailable TEN ., DR ESCOBAR Attending Unavailable TEN ., DR ESCOBAR Admitting Unavailable LILIANE .BRITTANY Consulting Unavailnasima e MISC, DR PEREZ Primary Care Unavailable HAY ., DR ESCOBAR Consulting Unavailable MARKIE CHAVEZ Consulting Unavailable MADHU SWIFT Attending Unavailable MADHU SWIFT Admitting Unavailable WAUNAKEE, DR FLORENCE Cavazos Consulting Unavailable MISKip, DR PEREZ Primary Care Unavailable MADHU SWIFT Consulting Unavailable MADHU SWIFT Attending Unavailable MADHU SWIFT Consulting Unavailable MADHU SWIFT Admitting Unavailable MISKip, DR PEREZ Referring Unavailable MISC, DR PEREZ Primary Care Unavailable NO PCP, NO PCP Primary Care Unavailable BEVERLEY SUTTON Attending Unavailable BEVERLEY SUTTON Attending Unavailable BEVERLEY SUTTON Referring Unavailable NO PCP, NO PCP Primary Care Unavailable TRACEY SAUNDERS Primary Care Unavailable MORA APONTE Attending Unavailable ELTAHAWY, EHAB Referring Unavailable ELTAHAWY, EHAB Admitting Unavailable ELVANNAY, EHAB Attending Unavailable YANICK LUBIN Referring Unavailable MADHU SWIFT Referring Unavailable MADHU SWIFT Attending Unavailable MADHU SWIFT Attending Unavailable Allergies Allergy ClassificationReported Allergen(s)Allergy TypeDate of OnsetReaction(s) FacilityNSAIDs (2 sources)NSAIDsDrug [facility] (5 sources)NSAIDsPropensity to adverse reactions to jeko99-95-7025SJ OF GASTRIC SLEEVEMercy [facility]- [place], [place] (3 sources)NSAIDs; Translations: [NSAIDS (NON-STEROIDAL ANTI-INFLAMMATORY DRUG)] Drug allergy (disorder)83-81-4691E[facility] Repository Medications Current Medications MedicationDrug Class(es)DatesSig (Normalized)Sig (Original)Acetaminophen (2 sources)Start: 52-27-6877igshwajvdwkqe (TYLENOL) tablet 650 mgStart: 10-31-2019 End: 18-54-9762ftxfazwsrqdox (TYLENOL) tablet 650 mgamphetamine 1.25 mg/ml extended release suspension (1 source)Central Nervous System StimulantStart: 55-68-6026sccm 1 mL by mouth once daily in the morningAmphetamine Active 5 ML PO Every morning February 08, 2024 12:00am24 hr amphetamine aspartate 5 mg / amphetamine sulfate 5 mg / dextroamphetamine saccharate 5 mg / dextroamphetamine sulfate 5 mg extended release oral capsule (10 sources)Central Nervous System StimulantStart: 85-93-0336jmfscjhldyz- dextroamphetamine (ADDERALL XR) extended release capsule 20 mgStart: 11-22-2020 take 10 mg by mouth once daily10 mg, Oral, DAILY, First dose on 12/14/20 at 1700 Use pt's home supply, End: 21-33-9719qmmy 1 tablet by mouth twice dailyamphetamine-dextroamphetamine (ADDERALL) 20 MG tablet Take 20 mg by mouth 2 times daily. 0 12/14/2020 Discontinued (Medication Clarified)Amphetamine Salt Combo (2 sources)Amphetamine Salt Combo 10mg one time at evening Activeascorbic acid 1000 mg oral tablet (1 source)Vitamin CStart: 12-16-2020 End: 41-10-8529hrkh 1 tablet by mouth twice dailyAscorbic Acid (VITAMIN C) 1000 MG tablet Take 1 tablet by mouth 2 times daily for 7 days 14 tablet 0 12/16/2020 12/23/2020 ActiveBariatric Fusion - (2 sources)Bariatric Fusion - as directed Orally BID Activeaugmented betamethasone 0.5 mg/ml topical cream (5 sources)CorticosteroidStart: 31-22-8807Xrsomdsrzfqkj, Augmented Active 1 APPLIC TOPICAL Daily February 08, 2024 12:00am FreeTextSi application Externally Once a day; Note: Source Status: Not-Taking\PRNPRN; Refills: 1; Qty: 40 Gram; Provider: Dorita Reidart: 63-24-7820Bbkfxzefgqedz Dipropionate Aug 0.05 % 1 application Externally Once a day for 7 days PRN Apr, Not-TakingBetamethasone Dipropionate 0.05 % 1 application Externally Twice a day ActivebuPROPion hydrochloride 100 mg oral tablet (9 sources)AminoketoneStart: 84-15-0610ntmg 300 mg by mouth in the morning, then take 150 mg by mouth twice daily in the eveningBupropion Hcl Active MG PO February 08, 2024 12:00am FreeTextSiMG AM, 150MG PM Orally Twice aday; Note: Source Status: Taking; Provider: Kwesi Mendenhall ( )Start: 55-58-1196uvnq 300 mg by mouth once xtgla710 mg, Oral, DAILY, First dose on 12/14/20 at 1045 Using Patient's own home medication. All medications are identified prior to administration per hospital policy.take 300 mg by mouth in the morning, then take 150 mg by mouth twice daily in the eveningbuPROPion HCl 100 MG 300MG AM, 150MG PM Orally Twice a day Active End: 09-09-0497ovjf 2 tablets by mouth once dailybuPROPion (WELLBUTRIN SR) 150 MG extended release tablet Take 300 mg by mouth daily 0 12/14/2020 Discontinued (DOSE ADJUSTMENT)take 3 tablets by mouth once dailybuPROPion (WELLBUTRIN) 100 MG tablet Take 300 mg by mouth daily 0 ActivebuPROPion (WELLBUTRIN SR) 150 MG extended release tablet Take 100 mg by mouth 2 times daily 0 Activediclofenac sodium 0.01 mg/mg topical gel (3 sources)Nonsteroidal Anti-inflammatory DrugStart: 75-94-2404Xvujonlbin Sodium Active TOPICAL February 08, 2024 12:00am FreeTextSi g Transdermal TID prn; Note: Source Status: Taking; Refills: 0; Provider: Anthony Gomez ( )Diclofenac Sodium 1 % 2 g Transdermal TID prn for 16 Active0.4 ml enoxaparin sodium 100 mg/ml prefilled syringe (1 source)Low Molecular Weight HeparinStart: 43-06-3661lpltgs 40 mg by subcutaneous injection once daily40 mg, Subcutaneous, DAILY, First dose on 12/14/20 at 0900ergocalciferol 1.25 mg oral capsule (1 source)Provitamin D2 CompoundStart: 69-17-6180hlps 1 capsule by mouth every weekvitamin D (ERGOCALCIFEROL) 1.25 MG (74147 UT) CAPS capsule Take 1 capsule by mouth once a week 4 capsule 0 12/16/2020 Activefamotidine 20 mg oral tablet (1 source)Histamine-2 Receptor AntagonistStart: 29-10-9957lzla 40 mg by mouth twice daily40 mg, Oral, 2 TIMES DAILY, First dose on Wed12/13/20 at 2145 fludrocortisone acetate 0.1 mg oral tablet (6 sources)Start: 58-05-5725rgts 1 mg by mouth once dailyFludrocortisone Active MG PO February 08, 2024 12:00am FreeTextSi daily; Note: Source Status: Puma sims; Provider: Kwesi Mendenhall ( )Start: 02-78-4763kfff 0.1 mg by mouth once daily0.1 mg, Oral, DAILY, First dose on 12/14/20 at 0900ivermectin 3 mg oral tablet (2 sources)Antiparasitic, PediculicideStart: 12-17-2020 End: 24-98-0434zjls 4 tablets by mouth once dailyivermectin 3 MG tablet Take 4 tablets by mouth daily for 2 days 8 tablet 0 12/17/2020 12/19/2020 ActiveStart: 12-14-2020 End: 20-19-916248 mg (rounded from 11.91 mg = 150 mcg/kg 79.4 kg), Oral, DAILY, First dose on 12/14/20 at 0900, For 5 dayslamoTRIgine 100 mg oral tablet (8 sources)Mood Stabilizer, Anti-epileptic AgentStart: 05-94-3357akjz 200 mg by mouth once cclod879 mg, Oral, DAILY, First dose on Wed12/14/20 at 0900Start: 31-08-2190ensjPREvhxd (LAMICTAL) tablet 50 mgtake 1 tablet by mouth every twenty-four hoursLaMICtal 200 MG 1 tablet Orally Once a day ActivelamoTRIgine (LAMICTAL) 25 MG tablet Take 200 mg by mouth daily 0 Activetake 2 tablets by mouth once dailylamoTRIgine (LAMICTAL) 25 MG tablet Take 50 mg by mouth daily For 14 days 0 ActivemethylPREDNISolone 40 mg injection (3 sources)CorticosteroidStart: 12-13-2020 End: 70-57-137325 mg, Intravenous, EVERY 12 HOURS, First dose on Wed12/13/20 at 2145, For 10 daysStart: 56-33-0633Ljjn-Medrol 80 mg Apr, 80 mgmidodrine hydrochloride 10 mg oral tablet (8 sources)alpha-Adrenergic AgonistStart: 67-25-1718cwup 1 tablet by mouth three times daily as neededMidodrine Active MG PO February 08, 2024 12:00am FreeTextSi tablet Orally Three times a day as needed depending on BP reading; Note: Source Status: TakingPRN; Provider: Kwesi Mendenhall (NPI: [id number])Start: 49-87-133704 mg, Oral, 2 TIMES DAILY, First dose on Wed12/13/20 at 2145 Do not give after 1800 or within 4 hrsof bedtime.take 1 tablet by mouth three times daily as neededMidodrine HCl 10 MG 1 tablet Orally Three times a day as needed depending on BP reading PRN Activetake 2 tablets by mouth twice daily midodrine (PROAMATINE) 5 MG tablet Take 10 mg by mouth 2 times daily 0 Active take 3 tablets by mouth three times dailymidodrine (PROAMATINE) 5 MG tablet Take 15 mg by mouth 3 times daily 0 Activeondansetron (ZOFRAN-ODT) disintegrating tablet 4 mg (1 source)Start: 13-37-2949ymxjgebvvqf (ZOFRAN-ODT) disintegrating tablet 4 mg pantoprazole 40 mg delayed release oral tablet (7 sources)Proton Pump InhibitorStart: 66-18-0571avju 40 mg by mouth once daily 40 mg, Oral, DAILY, First dose on Wed12/14/20 at 0900 Do not crush or break.take 1 tablet by mouth twice dailyPantoprazole Sodium 40 MG TAKE ONE TABLET BY MOUTH TWICE A DAY for 30 Activepolyethylene glycol 3350 51477 mg powder for oral solution (1 source)Osmotic LaxativeStart: g, Oral, DAILY PRN, Constipation, Starting on Wed12/13/20 at 2115 First line therapy for constipationpredniSONE 20 mg oral tablet (3 sources)Start: 57-22-1462kmfqpcBUXS 20 MG 2 tablets x 3 days then 1 tablet x 3 days Orally Once a day start in the morning for 6 days Mar, Active Start: 59-63-9317mbgs 1 tablet by mouth every twelve hourspredniSONE 20 MG 1 tablet Orally 2 times a day for 5 day(s) Nov, Not-Takingremdesivir 100 mg in sodium chloride 0.9 % 250 mL IVPB (1 source)Start: 12-14-2020 End: 78-22-8519pmapxgiemt 100 mg in sodium chloride 0.9 % 250 mL IVPB50 ml sodium chloride 9 mg/ml injection (6 sources)Start: 95-53-3560zmob 1 dose intravenously twice daily5-40 mL, Intravenous, EVERY 12 HOURS SCHEDULED (2 times per day), First dose on Wed12/13/20 at 2145 For Line Patency: Peripheral IV = 5 mL; Midline or Central Line = 10 mL/lumen. Iffollowing IV push medication, administer flush at same rate as the IV push. Flush volume is determined by type of infusion therapy being given. For non-viscous solutions use: Peripheral IV = 5 mL Midline or Central Line = 10 mL/lumen For viscous solutions (i.e. blood components, parenteral nutrition, contrast media, or after obtaining blood sample) use: Peripheral IV = 10 mL Midline or Central Line = 20 mL/lumenStart: 49-52-0577psdm 10 mL intravenously once as xkmbat13 mL, Intravenous, PRN, Line Care, After every IV line use, Starting on Wed12/13/20 at 2115Start: 12-13-2020 End: 84-68-2017Rjlyshipxkn, at 75 mL/hr, CONTINUOUS, Starting on Wed12/13/20 at 5Start: 04-59-5556locx 25 mL intravenously every hour as tavsag81 mL, Intravenous, at 100 mL/hr, PRN, If patient receiving piggyback infusions without ordered maintenance IV fluids or with frequent/long duration piggyback infusions, Starting on Wed12/13/20 at 2115 Administer at the same rate as the piggyback being infused.Start: 12-13-2020 End: .9 % sodium chloride bolustiZANidine 4 mg oral tablet (3 sources)Central alpha-2 Adrenergic AgonistStart: 56-49-0051fwcr 4 mg by mouth every eight hours as needed for pain4 mg, Oral, EVERY 8 HOURS PRN, Muscle pain, Starting on Wed12/13/20 at 2114zinc sulfate 220 mg oral capsule (2 sources)Start: 95-76-8982dhju 2 capsules by mouth once dailyzinc sulfate (ZINCATE) 220 (50 Zn) MG capsule Take 2 capsules by mouth daily 30 capsule 3 12/17/2020 ActiveStart: 43-11-8982588 mg, Oral, DAILY, First dose on Wed12/14/20 at 0900 Each 220mg Zinc Sulfate cap contains 50mg elemental zinc.zolpidem tartrate 5 mg oral tablet (5 sources)gamma-Aminobutyric Acid-ergic AgonistStart: 12-02-2020 End: 32-49-8752mjajhhwp (AMBIEN) tablet 5 mg Completed/Discontinued Medications MedicationDrug Class(es)DatesSig (Normalized)Sig (Original)aspirin 81 mg chewable tablet (1 source)Platelet Aggregation Inhibitor, Nonsteroidal Anti-inflammatory Drug Start: 12-07-2020 End: 63-31-3261uolkyrk chewable tablet 324 mgcholecalciferol 0.025 mg oral tablet (1 source)Vitamin DStart: 12-14-2020 End: 02-63-9797Ekdkejj D (CHOLECALCIFEROL) tablet 5,000 UnitsStart: 12-14-2020 End: 21-10-4834Fhkubnt D (CHOLECALCIFEROL) tablet 5,000 Unitsdesmopressin acetate 0.1 mg oral tablet (3 sources)Vasopressin Analog, Factor VIII Activator End: 92-41-8479agcd 1 tablet by mouth once dailydesmopressin (DDAVP) 0.1 MG tablet Take 0.1 mg by mouth nightly 0 12/07/2020 Discontinued (LIST CLEANUP) dexamethasone phosphate 10 mg/ml injectable solution (3 sources)CorticosteroidStart: 12-13-2020 End: 91-79-8240gjlqjiplwbblx (DECADRON) injection 6 mgStart: 38-60-5330vcai 1 tablet by mouth every twenty-four hoursDexamethasone 4 MG 1 tablet Orally Once a day for 5 day(s) PRN Apr, Not-Taking2 ml fentaNYL 0.05 mg/ml injection (1 source)Opioid AgonistStart: 12-07-2020 End: 55-11-9017gywdfVRZ (SUBLIMAZE) injection 50 mcgiopamidol (ISOVUE-370) 76 % injection 75 mL (1 source)Start: 12-13-2020 End: 20-85-2575jhaqussxw (ISOVUE-370) 76 % injection 75 mL1 ml morphine sulfate 4 mg/ml cartridge (1 source)Opioid AgonistStart: 10-30-2019 End: 58-36-3019htmqoszv injection 4 mg2 ml ondansetron 2 mg/ml injection (1 source)Serotonin-3 Receptor AntagonistStart: 10-30-2019 End: 42-32-5552uueroqwcjwk (ZOFRAN) injection 4 mg2 ml prochlorperazine 5 mg/ml injection (1 source)PhenothiazineStart: 10-30-2019 End: 95-75-7469pmumyimjsgxusvdy (COMPAZINE) injection 10 mgremdesivir 100 mg injection (1 source)Start: 12-14-2020 End: 48-24-3052nvfvyaesvh 100 MG injectiontriamcinolone acetonide 40 mg/ml injectable suspension (3 sources)CorticosteroidStart: 01-24-0354Hkagfrr-40 Mar, 40 mgwater 1000 mg/ml injectable solution (1 source)Start: 12-14-2020 End: 31-82-8053qzuhhif water injection Problems Active Problems Problem ClassificationProblemDateDocumented DateEpisodic/ChronicAcute and chronic tonsillitis (2 sources)Large tonsils; Translations: [Hypertrophy of tonsils]ChronicAllergic reactions (2 sources)Dermatitis, unspecifiedOnset: 11-16-2021 Resolved: 62-20-9739HgxwmpyzExeqfrkuk-deficit, conduct, and disruptive behavior disorders (2 sources)Attention deficit hyperactivity disorder; Translations: [Attention- deficit hyperactivity disorder, combined type]ChronicAttention-deficit, conduct, and disruptive behavior disorders (2 sources)Attention deficit hyperactivity disorder, predominantly inattentive type; Translations: [Attention-deficit hyperactivity disorder, predominantly inattentive type]ChronicCardiac dysrhythmias (2 sources)Sick sinus syndrome; Translations: [Sick sinus syndrome]Onset: 42-41-9296YibrcamZtejyxfxqz disorders (8 sources)H/O: cardiac pacemaker in situ; Translations: [Presence of cardiac pacemaker]Onset: 15-00-0827MnczzjpMwtowyijwg heart failure; nonhypertensive (9 sources)Chronic congestive heart failure; Translations: [Congestive heart failure]Onset: 92-86-7729IwsnrgvXuvtxfgw injury or internal injury (4 sources)Crushing injury of right foot, initial encounter; Translations: [CRUSHING INJURY RIGHT FOOT INITIAL]Onset: 48-63-9879IalzblngB Codes: Struck by; against (1 source)Other cause of strike by thrown, projected or falling object, initial encounter; Translations: [OTHCAUSE STRIK THRWN/FALL OBJ INIT]Onset: 06-15-2022 EpisodicEpilepsy; convulsions (1 source)Absence epileptic syndrome, not intractable, without status epilepticus; Translations: [Absence epileptic syndrome, not intractable, w/o stat epi]Onset: 69-18-6588BbqirncQlmyrixdqe disorders (2 sources)Gastroesophageal reflux disease; Translations: [Gastro-esophageal reflux disease without esophagitis]ChronicHeadache; including migraine (2 sources)Migraine; Translations: [Migraine, unspecified, not intractable, without status migrainosus]ChronicMiscellaneous mental health disorders (2 sources)Insomnia disorder related to another mental disorder; Translations: [Insomnia due to other mental disorder]ChronicMood disorders (2 sources)Moderate manic bipolar I disorder; Translations: [Bipolar disorder, current episode manic without psychotic features, moderate]ChronicNonspecific chest pain (13 sources)Chest wall pain; Translations: [Other chest pain]Onset: 12-26-2021 EpisodicOther aftercare (1 source)Other [place] [facility] (current) drug therapy; 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]Onset: 53-18-6891SlhfcruaXwnin liver diseases (2 sources)Steatosis of liver; Translations: [Fatty (change of) liver, not elsewhere classified]ChronicOther lower respiratory disease (1 source)Dyspnea, unspecified; Translations: [Dyspnea, unspecified]Onset: 68-86-4807UkvwlbphZxbxp lower respiratory disease (2 sources)Shortness of breath; Translations: [Shortness of breath]Onset: 34-87-8795IiovkzlmHtmib lower respiratory disease (1 source)Shortness of breath; Translations: [Shortness of breath]Onset: 46-93-9109GvrechghHrhhw male genital disorders (1 source)Male infertility; Translations: [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]EpisodicOther nervous system disorders (4 sources)Carpal tunnel syndrome; Translations: [Carpal tunnel syndrome, right upper limb]ChronicOther nutritional; endocrine; and metabolic disorders (2 sources)Body mass index 40+ - severely obese; Translations: [Morbid (severe) obesity due to excess calories]ChronicResidual codes; unclassified (2 sources)Idiopathic sleep related non-obstructive alveolar hypoventilation; Translations: [Idiopathic sleep related nonobstructive alveolar hypoventilation] ChronicResidual codes; unclassified (2 sources)Obstructive sleep apnea syndrome; Translations: [Obstructive sleep apnea (adult) (pediatric)]ChronicResidual codes; unclassified (1 source)Sleep apnea, unspecified; Translations: [SLEEP APNEA UNSPECIFIED] Onset: 41-76-6258LbinwiaRcqqwumboef failure; insufficiency; arrest (adult) (1 source)Acute respiratory failure; Translations: [Acute respiratory failure with hypoxia]EpisodicScreening and history of mental health and substance abuse codes (1 source)Personal history of nicotine dependence; Translations: [PERSONAL HISTORY OF NICOTINE DEPEND]Onset: 63-04-5447ZgmbfevlDrszuljyytg injury; contusion (1 source)Contusion of right foot, initial encounter; Translations: [CONTUSION RIGHT FOOT INITIAL ENC]Onset: 64-58-8964HjfkjwnuOitvlyq (1 source)Syncope and collapse; Translations: [Syncope and collapse]Episodic Unclassified (1 source)CONTACT W/AND (SUSP) EXPOS COVID-19; Translations: [CONTACT W/AND (SUSP) EXPOS COVID-19]Onset: 17-95-2870Apyhoqcavzjk (1 source)Supraventricular tachycardia, unspecified; Translations: [Supraventricular tachycardia, unspecified]Onset: 44-67-3133Dgjdg infection (4 sources)Disease caused by nCoV; Translations: [COVID-19]Onset: 99-30-3096Yemaboba Past or Other Problems Problem ClassificationProblemDateDocumented DateEpisodic/ChronicOther screening for suspected conditions (not mental disorders or infectious disease) (2 sources)Abnormal findings on diagnostic imaging of heart and coronary circulation; Translations: [Abnormal findings on diagnostic imaging of heart and coronary circulation]Onset: 46-32-2953FemlownkZyiqtptlyyrk (1 source)Supraventricular tachycardia, unspecified; Translations: [Supraventricular tachycardia, unspecified]Onset: 45-44-9482Ferkk infection (2 sources)Disease caused by 2019nCoV; Translations: [COVID-19] Results Test NameValueInterpretationReference RangeFacilityOffice Visiton 09-19-2024 Follow-up [id number] Lima Quinones 1985 M Date Provider Department Center 09/19/2024 MADHU ARREDONDO STEPHANIE Kathleen Family History Family Status - Relation Status Age at Mother Alive Father Alive Sister Alive Brother Alive Level of Service:801[address] [place] OFFICE/OUTPATIENT ESTABLISHED LOW [facility] Profon 73-35-9725Mkedx gap [Moles/Vol]12 mmol/LNormal9-17[facility] HospitalComment on above:Performed By: #### STEPHANIE ESTRELLA TROPI #### [facility] [address] [place] [address] Childcare Director: Florence Abreu MDBUHerminia/CRE Yztbm95Wlmwpe0-63Kqnqd [facility] Comment on above:Performed By: #### STEPHANIE ESTRELLA, TROPI #### [facility] [address] [place], [place] [id number] Childcare Director: ARASH Ojedaalcium [Mass/Vol]8.3 mg/dLLow8.6-10.4[facility] HospitalComment on above:Performed By: #### DELORES, BMP, TROPI #### [address] [place], [place] [id number] Childcare Director: ARASH Ojedahloride [Moles/Vol]101 mmol/OYlvqkl58-719FvhdqCleveland Clinic Medina HospitalComment on above:Performed By: #### DELORES, BMP, TROPI #### [address] [place], [place] [id number] Childcare Director: Florence Abreu MDCO2 [Moles/Vol]23 mmol/MDpkhqy68-18IesdxCleveland Clinic Medina HospitalComment on above:Performed By: #### DELORES BMP, TROPI #### [address] [place], [place] [id number] Childcare Director: ARASH Ojedareatinine [Mass/Vol]1.2 mg/dLNormal0.7-1.2[facility]y [facility] HospitalComment on above:Performed By: #### DELORES, BMP, TROPI #### [address] [place], [place] [id number] Childcare Director: Florence Abreu MDGFR/1.73 sq M.predicted among non-blacks MDRD (S/P/Bld) [Vol rate/Area]80 mL/min/{1.73_m2}Normal>60[facility] Comment on above:Result Comment: These results are not intended for use in patients <18 years of age. eGFR results are calculated without a race factor using the 2020 CKD-EPI equation. Careful clinical correlation is recommended, particularly when comparing to results calculated using previous equations. The CKD-EPI equation is less accurate in patients with extremes of muscle mass, extra-renal metabolism of creatine, excessive creatine ingestion, or following therapy that affects renal tubular secretion.Performed By: #### CDP, BMP, TROPI #### [facility] [address] [place] [address] [place] [address] Childcare Director: Florence Abreu MDGlucose [Mass/Vol]79 mg/jMDknvhq16-30Debqn [facility] HospitalComment on above:Performed By: #### CDP, BMP, TROPI #### [address] [place] [address] Childcare Director: DOMINIQUE Ojedaotassium [Moles/Vol]3.4 mmol/LLow3.7-5.3MercSelect [facility] HospitalComment on above:Performed By: #### DELORES, BMP, TROPI #### [address] [place] [address] Childcare Director: REBEKA Ojedaodium [Moles/Vol]136 mmol/NIsejjx007-690Vnfpx [facility] HospitalComment on above:Performed By: #### DELORES, BMP, TROPI #### [address] [place], [place] [id number] Childcare Director: Florence Abreu MDUrea nitrogen [Mass/Vol]18 mg/dLNormal6-20MerGalion Hospital HospitalComment on above:Performed By: #### DELORES, BMP, TROPI #### [address] [place], [place] [id number] Childcare Director: NICHOL Ojeda with Diffon 47-02-5570Afi. Basophil<0.03Normal 0.00-0.20MerGalion Hospital HospitalComment on above:Performed By: #### DELORES, BMP, TROPI #### [address] [place], [place] [id number] Childcare Director: Delfina Ojeda.Imm.Granulocyte<0.13Yhgbeq5.00-0.30[facility] HospitalComment on above:Performed By: #### CDP, BMP, TROPI #### [address] [place], [place] [address] Childcare Director: Delfina Ojeda.Neutrophil (Seg)3.60 k/uLNormal1.50-8.10[facility] HospitalComment on above:Performed By: #### CDP, BMP, TROPI #### [address] [place], [place] [address] Childcare Director: Florence Abreu MDBasophils/100 WBC (Bld)0 %Normal0-2[facility] HospitalComment on above:Performed By: #### CDP, BMP, TROPI #### [address] [place] [address] Childcare Director: Florence Abreu MDEosinophils (Bld) [#/Vol]0.05 10*3/uLNormal 0.00-0.44[facility] HospitalComment on above:Performed By: #### CDP, BMP, TROPI #### [address] [place], [place] [address] Childcare Director: JIE Ojedaosinophils/100 WBC (Bld)1 %Normal1-4[facility] HospitalComment on above:Performed By: #### CDP, BMP, TROPI #### [address] [place] [address] Childcare Director: Florence Abreu MDErythrocyte distribution width (RBC) [Ratio]12.8 % Kmatgm53.8-14.4[facility] HospitalComment on above:Performed By: #### CDP, BMP, TROPI #### [address] [place] [id number] Childcare Director: Florence Abreu MDHematocrit (Bld) [Volume fraction]36.6 %Low 40.7-50.3[facility] HospitalComment on above:Performed By: #### CDP, BMP, TROPI #### [address] [place] [address] Childcare Director: Florence Abreu MDHemoglobin (Bld) [Mass/Vol]12.8 g/dLLow13.0-17.0 [facility] HospitalComment on above:Performed By: #### CDP, BMP, TROPI #### [address] [place], [facility]83 Childcare Director: Tom Ojedamature granulocytes/100 WBC (Bld)0 %Xxstly3Ebarr [facility]iffin HospitalComment on above:Performed By: #### DELORES, BMP, TROPI #### [address] [place] [id number] Childcare Director: Florence Abreu MDLymphocytes (Bld) [#/Vol]0.97 10*3/uLLow1.10-3.70 [facility] HospitalComment on above:Performed By: #### DELORES, BMP, TROPI #### [address] [place], [facility]83 Childcare Director: Cristina Ojedamphocytes/100 WBC (Bld)19 %Nhi38-47Sxnim Tiffin HospitalComment on above:Performed By: #### DELORES, BMP, TROPI #### [address] [place], [facility]83 Childcare Director: REYNA OjedaCH (RBC) [Entitic mass]29.3 vnFceixc40.2-33.5 [facility] HospitalComment on above:Performed By: #### CDP, BMP, TROPI #### [address] [place], [place] 501[address]83 Childcare Director: BORIS OjedaC (RBC) [Mass/Vol]35.0 g/dJPqpo53.4-34.8[facility] HospitalComment on above:Performed By: #### CDP, BMP, TROPI #### [address] [place] [address] Childcare Director: REYNA OjedaCV (RBC) [Entitic vol]83.8 uLAnwwil61.6-102.9 [facility] HospitalComment on above:Performed By: #### CDP, BMP, TROPI #### [address] [place] [address] Childcare Director: REYNA Ojedaonocytes (Bld) [#/Vol]0.50 10*3/uLNormal0.10-1.20 [facility] HospitalComment on above:Performed By: #### CDP, BMP, TROPI #### [address] [place] [address] Childcare Director: REYNA Ojedaonocytes/100 WBC (Bld)10 %Normal3-12[facility] HospitalComment on above:Performed By: #### CDP, BMP, TROPI #### [address] [place] [address] Childcare Director: Mira Ojedaophil (Seg)70 %Lvhg71-02TfhotCleveland Clinic Medina Hospital Comment on above:Performed By: #### CDP, BMP, TROPI #### [address] [place] [address] Childcare Director: TONA Ojeda Automated0.0 per 100 WBCNormal0.0[facility] HospitalComment on above:Performed By: #### CDP, BMP, TROPI #### [address] [place], [place] [id number] Childcare Director: DOMINIQUE Ojedalatelet mean volume (Bld) [Entitic vol]9.8 fL Normal8.1-13.5[facility] HospitalComment on above:Performed By: #### CDP, BMP, TROPI #### [facility] [address] [place], [place] 156[address]83 Childcare Director: Sara Ojeda ([facility]) [#/Vol]251 10*3/bMSgfalf575-697 [facility] HospitalComment on above:Performed By: #### CDP, BMP, TROPI #### [address] [place], [place] 7025383 Childcare Director: VERNELL Ojeda ([facility]) [#/Vol]4.37 10*6/uLNormal4.21-5.77[facility] HospitalComment on above:Performed By: #### CDP, BMP, TROPI #### [address] [place], [place] 6[address]83 Childcare Director: FEDERICA Ojeda ([facility]) [#/Vol]5.2 10*3/uLNormal3.5-11.3[facility] HospitalComment on above:Performed By: #### CDP, BMP, TROPI #### [address] [place], [place] 1284083 Childcare Director: Maureen Ojeda [id number], High Sens19 ng/L Normal0-22[facility] HospitalComment on above:Result Comment: High Sensitivity Troponin values cannot be compared with other Troponin methodologies.Performed By: #### CDP, BMP, TROPI #### [address] [place], [place] [id number] Childcare Director: SHEILA Ojeda CHEST PORTABLEon [id number] CHEST PORTABLE EXAMINATION: ONE XRAY VIEW OF THE CHEST 11/27/2023 11:34 pm COMPARISON: April 30, 2021 HISTORY: ORDERING SYSTEM PROVIDED HISTORY: chest pain TECHNOLOGIST PROVIDED HISTORY: chest pain FINDINGS: The cardiomediastinal silhouette is normal size.Cardiac pacer device unchanged. No consolidation or venous congestion.No pleural effusion or pneumothorax identified. IMPRESSION: No acute cardiopulmonary disease. Interpreted by: Eliseo Leung MD Signed by: Eliseo Leung MD 11/27/23 Final resultNormalMercy Damascus HospitalOffice Visiton [id number]-up visit [id number] Lima Quinones 1985 M Date Provider Department Center 11/23/2023 MADHU ARREDONDO CARD [facility] No family history on file Level of Service:92987 [place] OFFICE/OUTPATIENT ESTABLISHED LOW [facility] HospitalANESon [id number] Attestation signed by Leeroy Pierson MD at 10/06/2023 1:50 PM Leeroy Pierson MD, MPH, [facility], [facility] Interventional Cardiology Pager Email: [email or web address] Patient: Lima Quinones Procedure Information Date/Time: 10/06/23 1230 Procedure: Right heart cath (Right) Location: [facility] GLASS TECHNICIAN 3 / [facility] HV VASCULAR LAB (Cath) Providers: Leeroy Pierson MD Clinical information reviewed: Allergies Meds Physical Exam Airway Mallampati: IV TM distance: >3 FB Neck ROM: full Cardiovascular Rhythm: regular Rate: normal Dental Pulmonary Breath sounds clear to auscultation Abdominal Abdomen: soft Anesthesia Plan ASA 3 (Moderate sedation) Anesthetic plan and risks discussed with patient. Use of blood products discussed with patient who consented to blood products. Plan discussed with fellow and attending. Additional Equipment RequestsNormalUniversity of Memorial Health System CenterHPon [id number] Electrophysiology Consult Note Reason for visit: 1 year follow-up s/p PPM placement due to sick sinus syndrome, Biotronik PPM implanted 04/2019 HPI: Lima Quinones is a 37 y.o. year old with past medical history of sick sinus syndrome s/p PPM, atrial tachycardia, bariatric surgery which cause bradycardia and eventually led to sinus node dysfunction in 2019 with PPM placement, Orthostatic hypotension with history of syncope. Last device check 06/02/2022 shows underlying rhythm sinus at 90 bpm, a paced 55%, RV paced 0% with normal device function and lead thresholds. He was noted to have episodes of atrial tachycardia and on recent device check his lower limit rate was increased to 60 bpm he states he thinks he will feel better if his rates went up to 70 bpm as he has noticed some sluggishness [address] Swift 36-year-old man with a past medical history of morbid obesity who underwent bariatric surgery which was subsequently complicated by bradycardia and underwent pacemaker for sinus node dysfunction in 2019. He was subsequently admitted to [facility] on 05/16/2019 for chest pain and had undergone a stress test which was normal. However an echocardiogram showed concern for low ejection fraction with wall motion abnormalities and so he was taken to cardiac lab for a coronary angiography. He was subsequently admitted to [facility] again on 10/31/2019 after he was transferred from the emergency department at different hospital due to syncope and collapse he states that he was lightheaded and fell to the ground. Pacemaker interrogation showed normal functioning device but he was noted to be orthostatic at that time he was subsequently placed on fludrocortisone 0.1 mg daily and discharged. Device check that was performed today shows evidence of a dual-chamber Biotronik pacemaker that is implanted by Dr. Reaves on 04/26/2019 he was noted to have no RV pacing but the RV threshold was noted to be elevated at 2.8 V at 1 ms pulse width. As per Dr. Reaves's note he had initially noted to have persistent bradycardia with rates in the 30s that initially responded with atrial pacing but went back to again 30 bpm. During implant he was noted to have an increased pacing threshold of 3 V at 1 ms pulse width despite a good sensing. He is noted to have significant episodes of long RP tachycardia consistent with atrial tachycardia seen on the device testing. He feels these episodes quite often and feels washed out. Echocardiogram performed on 11/01/2019 shows EF of 50 to 55% with a left atrium that is normal size and no significant valvular abnormality 05/15/2019 shows EF of 45 to 50% 04/24/2019 shows EF of 55% Cardiac cath on 05/16/2019 CORONARY ANGIOGRAPHIC FINDINGS: 1. Left main coronary artery: Moderate-sized vessel that arises from left coronary cusp, giving rise to the left anterior descending artery andleft circumflex artery. There was no evidence of atheroscleroticdisease in the left main artery or it's branches. 2. Left anterior descending artery: Moderate-sized vessel that gave riseto 1st diagonal branch and small 2nd diagonal branches. There was noevidence of atherosclerotic disease in the left anterior descendingartery or its branches. 3. Left circumflex artery: Moderate-sized vessel that gives rise to the1st and 2nd obtuse marginal branch. There was no evidence ofatherosclerotic disease in the left circumflex artery or its branches. 4. Right coronary artery: Moderate large voluminous vessel dominantgiving rise to the right PDA and right PLV branch. There was n evidence of atherosclerotic disease in the right coronary artery sera's branches. PMH: No past medical history on file. PSH: Past Surgical History: Procedure Laterality Date CT CHEST ANGIOGRAM W AND/OR WO IV CONTRAST 06/10/2019 CT CHEST ANGIOGRAM W AND/OR WO IV CONTRAST [place] CONVERSION SH: Social Determinants of Health Tobacco Use: Not on file Alcohol Use: Not on file Financial Resource Strain: Not on file Food Insecurity: Not on file Transportation Needs: Not on file Physical Activity: Not on file Stress: Not on file Social Connections: Not on file Intimate Partner Violence: Unknown (07/01/2023) [place] Safety & Environment Fear of Current or Ex-Partner: Not on file Emotionally Abused: Not on file Physically Abused: Not on file Sexually Abused: Not on file Physically or Sexually Abused: Not on file Depression: Not on file Housing Stability: Not on file Utilities: Not on file Allergies: Allergies Allergen Reactions Nsaids (Non-Steroidal Anti-Inflammatory Drug) Previous gastric sleeve surgery; causes GI bleed Weight: 86.7kg Visit Vitals BP 130/86 Pulse 99 Resp 18 SpO2 99% Meds: No current facility-administered medications on file prio (more content not included)...[facility] Attestation signed by Leeroy Pierson MD at 10/06/2023 1:50 PM By using the attestations below, the signing clinician agrees that I have read and verify that the documentation has been personally reviewed by me and ensure that the documentation accurately reflects the encounter. GC: I personally saw this patient on the day of the encounter, performed the farley portion(s) of the service and participated in the management and confirm the resident's documentation. Please note there may be an additional personal documentation from me. Leeroy Pierson MD, MPH, FACC, [facility], [facility] Interventional Cardiology Pager Email: [email or web address] History Of Present Illness Lima Quinones is a 37 y.o. male presenting for planned EP study and RHC. PMHx of SSS s/p PPM (Biotronik PPM implanted 04/2019), SVT/atrial tachycardia, ALEKSANDER, reported prior LV systolic dysfunction on TTE, orthostatic hypotension. He was evaluated in the clinic last month during yearly PPM routine visit and complained of increased palpitations, SOB and right sided chest pains. Endorses intermittent dizziness from going to sitting to standing and states he feels tired often and the fatigue has been ongoing for the past 3 years. He'll have occastional right sided chest pain. Follow up echocardiogram of 09/17/23 showed EF 55-60%, moderately elevated R sided pressures, RVSP 50 mmHg, and no valvular abnormalities. He was referred to EP for EP study and RHC for further assessment Past Medical History As in HPI Surgical History He has a past surgical history that includes CTA Chest W IV Contrast (06/10/2019). Social History He has no history on file for tobacco use, alcohol use, and drug use. Allergies Nsaids (non-steroidal anti-inflammatory drug) Medications Medications Prior to Admission Medication Sig Dispense Refill Last Dose amphetamine-dextroamphetamine (Adderall) 10 mg tablet Take 20 mg by mouth in the morning. 20mg XR in AM, 10mg immediate release PM 10/05/2023 amphetamine-dextroamphetamine XR (Adderall XR) 20 mg 24 hr capsule Take 20 mg by mouth in the morning. 10/06/2023 buPROPion SR (Wellbutrin SR) 150 mg 12 hr tablet Take 150 mg by mouth in the morning. 2 tabs AM, 1 tab PM. 10/06/2023 fludrocortisone (Florinef) 0.1 mg tablet Take 1 tablet (0.1 mg) by mouth in the morning. 90 tablet 3 10/06/2023 furosemide (Lasix) 20 mg tablet Take 1 tablet (20 mg) by mouth in the morning and at bedtime. 180 tablet 3 10/06/2023 lamoTRIgine (LaMICtal) 200 mg tablet Take 200 mg by mouth in the morning. 10/06/2023 midodrine (Proamatine) 10 mg tablet Take 1 tablet (10 mg) by mouth in the morning and at bedtime. (Patient taking differently: Take 10 mg by mouth if needed.) 180 tablet 3 10/06/2023 pantoprazole (ProtoNix) 40 mg EC tablet Take 40 mg by mouth in the morning. 10/06/2023 SUMAtriptan (Imitrex) 25 mg tablet Take 25 mg by mouth if needed each day. Past Month Review of Systems 12 point ROS negative except as in HPI Physical Exam Constitutional: Appearance: Normal appearance. He is normal weight. HENT: Head: Normocephalic and atraumatic. Cardiovascular: Rate and Rhythm: Normal rate and regular rhythm. Pulses: Normal pulses. Pulmonary: Effort: Pulmonary effort is normal. Breath sounds: Normal breath sounds. Abdominal: General: There is no distension. Palpations: Abdomen is soft. Tenderness: There is no abdominal tenderness. Musculoskeletal: General: No swelling. Cervical back: Normal range of motion and neck supple. Neurological: Mental Status: He is oriented to person, place, and time. Mental status is at baseline. Last Recorded Vitals Blood pressure (!) 127/91, pulse 95, resp. rate 16, SpO2 97 %. Relevant Results Encounter Date: 10/06/23 Electrocardiogram, 12-lead Result Value Ventricular Rate 83 Atrial Rate 83 NH Interval 158 QRS DURATION 112 QT Interval 374 QTC CALCULATION(BAZETT) 439 P [place] 37 R-[place] 18 T Wave [place] 53 Impression Atrial-paced rhythm Incomplete right bundle branch block Abnormal ECG When compared with ECG of 20-NOV-2021 11:40, No significant change was found Echocardiograms and labs reviewed in EMR Assessment/Plan Chronic fatigue, SOB SSS s/p PPM (Biotronik PPM implanted 04/2019), SVT/atrial tachycardia, ALEKSANDER, reported prior LV systolic dysfunction on TTE, improved on recent echo 09/17/23 orthostatic hypotension Pulmonary hypertension, RVSP 50mmHg on recent echo 09/17/23 - will proceed with RHC for further assessment of pulmonary hypertension - procedure's details, risks and benefits discussed with the patient and he's agreeable - further recommendations pending RHC resultsNormalUniversMemorial Health System Marietta Memorial HospitalNURSNOTEon 46-98-7925IVQDEXPBVD educated pt on d/c instructions. RN encouraged pt to voice any questions or concerns. Pt verbalizes no questions or concerns at this time.NormalUnBellevue HospitalBASIC METABOLIC PANLon 55-22-9176Qymun gap [Moles/Vol]8 mmol/LNormal5-15[facility] Medical CenterComment on above:Performed By: #### STEPHANIE VENCES, , 08772-6 #### [facility] ([id number]) [address] [place] [address] 18849Ujbyguu [Mass/Vol]9.3 mg/dLNormal8.5-10.5PCommunity Memorial HospitalComment on above:Performed By: #### STEPHANIE VENCES, , 74416-2 #### [facility] ([id number]) [address] [place] [address] 47840Krkandwt [Moles/Vol]101 mmol/VNaewnm41-916UgqKajurdCovenant Health PlainviewComment on above:Performed By: #### STEPHANIE VENCES, , 66550-8 #### [facility] ([id number]) [address] [place] [address] 73986ZG2 [Moles/Vol]26 mmol/VAjrqpd24-38TelRstuntCommunity Memorial Hospital Comment on above:Performed By: #### STEPHANIE VENCES, , 06310-1 #### [facility] ([id number]) [address] [place] [address] 33650Ojwwuxcdsm [Mass/Vol]0.98 mg/dLNormal0.70-1.20[facility] Medical CenterComment on above:Result Comment: METHOD TRACEABLE TO IDMS STANDARD Performed By: #### STEPHANIE VENCES, , 57025-5 #### [facility] ([id number]) [address] [place] [address] 87537vGHM (CKD-EPI) NON-RACE DEPENDENT>90Normal>59ProCovenant Health PlainviewComment on above:Result Comment: Reported eGFR is based on the CKD-EPI 2020 equation that does not use a race coefficient.Performed By: #### STEPHANIE VENCES, , 61105-5 #### [facility] ([id number]) [address] [place] [address] 84160Zotwbra [Mass/Vol]123 mg/iLKxla37-50SrhHljcadDiley Ridge Medical Center Comment on above:Performed By: #### STEPHANIE VENCES, , 80359-5 #### [facility] ([id number]) [address] [place] [address] 78347Tobahyros [Moles/Vol]3.4 mmol/LLow3.5-5.0ProCovenant Health PlainviewComment on above:Performed By: #### STEPHANIE VENCES, , 22457-0 #### [facility] ([id number]) [address] [place] [address] 68877Vxyqxg [Moles/Vol]135 mmol/LKzhtla953-804ZtsTumvua Fremont HospitalComment on above:Performed By: #### STEPHANIE VENCES, , 86618-8 #### [facility] ([id number]) [address] [place] [address] 97824Trrn nitrogen [Mass/Vol]20 mg/dLNormal5-23ProCovenant Health PlainviewComment on above:Performed By: #### STEPHANIE VENCES, , 76570-7 #### [facility] ([id number]) [address] [place] [address] 77229CYZ AND AUTO DIFFon 77-40-8889UWOWESQC BASOPHIL0.0 X10E9/L Normal0.0-0.2PCommunity Memorial HospitalComment on above:Performed By: #### STEPHANIE VENCES, , 09514-3 #### [facility] ([id number]) [address] [place] [address] 92118RASRWNPS NEUTROPHIL6.2 X10E9/LNormal1.5-6.6D[facility] Medical CenterComment on above:Performed By: #### RU, STEPHANIE, , 77628-9 #### [facility] ([id number]) [address] [place] [address] 67048Nokfpqshv/100 WBC (Bld)0.3 %[facility] Comment on above:Performed By: #### RU, STEPHANIE, , 80075-4 #### [facility] ([id number]) [address] [place] [address] 83262Tqqqhfoopbj (Bld) [#/Vol]0.1 10*3/uLNormal0.0-0.4D[facility] Medical CenterComment on above:Performed By: #### RU, STEPHANIE, , 97794-2 #### [facility] ([id number]) [address] [place] [address] 11905Ckqazyxnzgv/100 WBC (Bld)1.6 %NormalDiley Ridge Medical Center Comment on above:Performed By: #### STEPHANIE VENCES, , 99357-1 #### [facility] ([id number]) [address] [place] [address] 57485Yrqjgjuteui distribution width (RBC) [Ratio]13.8 %Normal 11.5-15.0D[facility] Ridge Medical CenterComment on above:Performed By: #### CBCNichole, STEPHANIE, , 34560-4 #### [facility] ([id number]) [address] [place] [address] 21548Xmxvoqlcfy (Bld) [Volume fraction]41.9 %Ziwnhm74-41RaoYainpdCovenant Health PlainviewComment on above:Performed By: #### RU, STEPHANIE, , 72906-0 #### [facility] ([id number]) [address] [place] [address] 06088Ytculbealb (Bld) [Mass/Vol]14.4 g/jKOveobl23.0-17.0[facility] Medical CenterComment on above:Performed By: #### STEPHANIE VENCES, , 63148-9 #### [facility] ([id number]) [address] [place] [address] 57691Vbxyrffzvmo (Bld) [#/Vol]1.7 10*3/uLNormal1.0-3.5ProMedRedlands Community HospitalComment on above:Performed By: #### STEPHANIE VENCES, , 75737-5 #### [facility] ([id number]) [address] [place] [address] 53805Vzcsghgotvw/100 WBC (Bld)19.9 %NormalProCovenant Health Plainview Comment on above:Performed By: #### STEPHANIE VENCES, , 36778-5 #### [facility] ([id number]) [address] [place] [address] 99793TEV (RBC) [Entitic mass]28.9 lzPfrmgf33-31TwbOpgaimCovenant Health PlainviewComment on above:Performed By: #### STEPHANIE VENCES, , 57468-9 #### [facility] ([id number]) [address] [place] [address] 58173UVQY (RBC) [Mass/Vol]34.3 g/nHPkwivo71-40WiqEhhtywCovenant Health PlainviewComment on above:Performed By: #### STEPHANIE VENCES, , 54684-5 #### [facility] ([id number]) [address] [place] [address] 25777HIA (RBC) [Entitic vol]84 gETmkhqs28-685CmiBecznf Fremont HospitalComment on above:Performed By: #### STEPHANIE VENCES, , 54696-9 #### [facility] ([id number]) [address] [place] [address] 48692Uphgrusvp (Bld) [#/Vol]0.6 10*3/uLNormal0-0.9D[facility] Medical CenterComment on above:Performed By: #### RU, STEPHANIE, , 63486-7 #### [facility] ([id number]) [address] [place] [address] 60843Cksohuiwd/100 WBC (Bld)6.6 %NormalDiley Ridge Medical Center Comment on above:Performed By: #### RU, STEPHANIE, , 68520-1 #### [facility] ([id number]) [address] [place] [address] 71924Timqaahsser/100 WBC (Bld)71.6 %NormalDiley Ridge Medical Center Comment on above:Performed By: #### RU, STEPHANIE, , 24267-3 #### [facility] ([id number]) [address] [place] [address] 49801Dtozkqrl mean volume (Bld) [Entitic vol]8.1 fLNormal7-12 [facility] Medical CenterComment on above:Performed By: #### RU, STEPHANIE, , 78305-9 #### [facility] ([id number]) [address] [place] [address] 53783Ehsmexlty (Bld) [#/Vol]322 10*3/bIUdobsv560-690CraXxleqyDiley Ridge Medical CenterComment on above:Performed By: #### RU, BMP, , 47269-1 #### [facility] ([id number]) [address] [place] [address] 92940QDK COUNT4.97 X10E12/LNormal4.10-5.70[facility] Comment on above:Performed By: #### RU, STEPHANIE, 57734-0, 10338-5 #### [facility] ([id number]) [address] [place] [address] 66915ZIE (Bld) [#/Vol]8.6 10*3/uLNormal4.0-11.0ProCovenant Health PlainviewComment on above:Performed By: #### RU, STEPHANIE, 59033-5, 26855-2 #### [facility] ([id number]) [address] [place] [address] 47344Xntjyi D-dimer DDU (PPP) [Mass/Vol]on 09-21-2023 DIMER<150 Normal<255ProCovenant Health PlainviewComment on above:Result Comment: Results <255 ng/mL DDU: The presence of a VTE can safely be excluded with a negative D-Dimer result and Wells score. A negative result doesn't exclude the possibility of DIC. The test be repeated along with other diagnostic tests if the patient's symptoms persist or worsen. [email or web address] By: #### 87047-1 #### [facility] ([id number]) [address] [place] [address] 07629NITUSGNSLef 37-52-1481Rboafdrvj [Mass/Vol]2.5 mg/dLNormal 1.8-2.6ProCovenant Health PlainviewComment on above:Performed By: #### RU, STEPHANIE, 91680-3, 78484-3 #### [facility] ([id number]) [address] [place] [address] 80894Kgctbgzehto peptide B [Mass/Vol]on 85-11-8561OHQ NATRIURETIC PEP<5Normal<100.0ProCovenant Health PlainviewComment on above:Performed By: #### 34659-8 #### [facility] ([id number]) [address] [place] [address], [place] [address]Xekzmcal I.cardiac High sensitivity method [Mass/Vol]on HOUR TROP I, HIGH SENSITIVITY2 ng/LNormal<21[facility] Inyo HospitalComment on above:Performed By: #### 11068-5 #### [facility] ([id number]) [address] [place] [address] 75522AQBMNZUD I, HIGH SENSITIVITY3 ng/LNormal<21[facility] Inyo HospitalComment on above:Performed By: #### CBCA, BMP, 59983-8, 89917-5 #### [facility] ([id number]) [address] [place] [address] 28046Lf office Testingon 63-93-2965Vx office Testing [id number]#1.00CD:127[facility] CenterXR FOOT RT MIN 3 VIEWSon 79-93-7631DY FOOT RT MIN 3 VIEWSEXAM: XR FOOT RT MIN 3 VIEWS HISTORY: Pain post injury. COMPARISON: 07/21/2015 FINDINGS: There is no evidence of an acute fracture, subluxation or bony destruction. IMPRESSION: No acute osseous abnormality detected. Electronically authenticated by: MARKIE CHAVEZ Date: 2022-06-11 17:23Normal [facility] METABOLIC PANELon 50-60-5343Vfadv gap [Moles/Vol]13 mmol/LNormal0-19[facility] SystemComment on above:Performed By: #### BMP #### Main Laboratory [facility] [address] [place], [place] [address]Cyxclkc [Mass/Vol]9.2 mg/dLNormal8.5-10.4[facility] Comment on above:Performed By: #### BMP #### Main Laboratory [facility] [address] [place], [place] [address]Suixzbdw [Moles/Vol]102 mmol/DXsxyce43-014NjeiHarrison Community Hospital Comment on above:Performed By: #### BMP #### [facility] [place] [address] [place], [place] [address]YB2 [Moles/Vol]24 mmol/FDtwwoh30-02UjmyHarrison Community HospitalComment on above:Performed By: #### BMP #### [facility] [place] [address] [place], [place] [address]Odcdmwzzeq [Mass/Vol]1.0 mg/dLNormal0.4-1.6[facility] HospitalComment on above:Performed By: #### BMP #### [facility] [place] [address] [address] [place], [place] [address]HPYYZDBYR QNY283 mL/min/1.73 i8CbcbewMymeNorth General Hospital Comment on above:Result Comment: CALCULATIONS OF ESTIMATED GFR ARE PERFORMED USING THE 2020 CKD-EPI STUDY REFIT EQUATION WITHOUT THE RACE VARIABLE FOR THE IDMS-TRACEABLE CREATININE METHODS. https://jasn.asnjournals.org/content//ASN.5509258878 Performed at [address] [place] [address]Pjpahxmku By: #### BMP #### [place] [address] [address] [place], [place] [address]Ourcaip [Mass/Vol]102 mg/zAStjz74-42WvpgHarrison Community Hospital Comment on above:Performed By: #### BMP #### [facility] Laboratory [place] [address] [address] [place], [place] [address]Mrjzxpets [Moles/Vol]3.7 mmol/LNormal3.4-5.1LBellevue HospitalComment on above:Performed By: #### BMP #### [facility] [place] [address] [address] [place], [place] [address]Wimkzm [Moles/Vol]139 mmol/PXqhinl727-072[facility] Comment on above:Performed By: #### BMP #### [facility] [address] [address]Wfut nitrogen [Mass/Vol]18 mg/dLNormal8-25[facility] Comment on above:Performed By: #### BMP #### [facility] [address] [place] [address]Tyod nitrogen/Creatinine [Mass ratio]18.0 mg/mgNormal8-21 [facility] HospitalComment on above:Performed By: #### BMP #### [facility] [place] [address] [place], [place] [address]FLB with Diffon 01-41-7886YC IMMATURE NEUT0.02 K/ULNormal 0.0-0.1LBellevue HospitalComment on above:Performed By: #### CBCD #### [facility] [place] [address] [place], [place] [address]XZB BASO0.03 K/ULNormal0.00-0.22[facility] HospitalComment on above:Performed By: #### CBCD #### [place] [address] [address] [place], [place] [address]FCO EOS0.08 K/ULNormal0-0.45[facility] HospitalComment on above:Performed By: #### CBCD #### [place] [address] [place], [place] [address]WWW NEUTROPHILS5.70 K/ULNormal1.8-7.7[facility] Comment on above:Performed By: #### CBCD #### [place] [address] [address] [place], [place] [address]ATG.NEUT.CALCULATED5.70 K/ULNormU.S. Army General Hospital No. 1Comment on above:Result Comment: Performed at [address] [address]Fzjukmtka By: #### CBCD #### [place] [address] [address] [place], [place] [address]Xqoeddayo/100 WBC (Bld)0.40 %Normal0-[address] [place] [address] Comment on above:Performed By: #### CBCD #### [facility] [place] [address] [place], [place] [address]WTJF TYPEAUTO DIFFNoCentra Virginia Baptist Hospital SystemComment on above: Performed By: #### CBCD #### [facility] [address] [address]Cmhtfcvrsfr/100 WBC (Bld)1.00 %Normal0-3[facility] Comment on above:Performed By: #### CBCD #### [facility] [place] [address] [place], [place] [address]Dsojwcwycal distribution width (RBC) [Ratio]12.5 %Normal 11.7-15.0[facility] HospitalComment on above:Performed By: #### CBCD #### [facility] [place] [address] [address] [place], [place] [address]Ejgjocsjnn (Bld) [Volume fraction]39.6 %Evx36-74JfegHarrison Community HospitalComment on above:Performed By: #### CBCD #### [place] [address] [address] [place], [place] [address]Gtfkfeswbz (Bld) [Mass/Vol]13.3 g/dLLow13.5-16.5[facility] HospitalComment on above:Performed By: #### CBCD #### [place] [address] [address] [place], [place] [address]Fbhwiqxkgpf (Bld) [#/Vol]1.93 10*3/uLNormal1.2-3.2LBellevue HospitalComment on above:Performed By: #### CBCD #### [place] [address] [address] [place], [place] [address]Qvmdoxddwsr/100 WBC (Bld)23.00 %Cedlyx64-09IgkdHarrison Community HospitalComment on above:Performed By: #### CBCD #### [facility] [place] [address] [place], [place] [address]MJE (RBC) [Entitic mass]29.0 qbOomhwf99-17RaorHarrison Community Hospital Comment on above:Performed By: #### CBCD #### [place] [address] [address] [place], [place] [address]HSBW46.6 %Yuzxtv87-55DhikHarrison Community HospitalComment on above: Performed By: #### CBCD #### [facility] [place] [address] [address] [place], [place] [address]XTQ (RBC) [Entitic vol]86.5 wJPyzztw16-508[facility] Comment on above:Performed By: #### CBCD #### [place] [address] [place], [place] [address]KKJH PLT VOL9.8 CUNormal7.0-12.6[facility] Hospital SystemComment on above:Performed By: #### CBCD #### [place] [address] [place], [place] [address]Ybrpmgqti (Bld) [#/Vol]0.63 10*3/uLNormal0-0.8[facility] Hospital SystemComment on above:Performed By: #### CBCD #### [place] [address] [place], [place] [address]Ednjzzmwr/100 WBC (Bld)7.50 %Normal0-8[facility] Comment on above:Performed By: #### CBCD #### [place] [address] [place], [place] [address]Owcislgazfw/100 WBC (Bld)0.20 %Normal0.0-1.0[facility] Hospital SystemComment on above:Performed By: #### CBCD #### [place] [address] [place], [place] [address]Mjpwfvyhtzq/100 WBC (Bld)67.90 %Kgssts89-35Iclm Health SystemComment on above:Performed By: #### CBCD #### [place] [address] [address] [place], [place] [address]HHLI'S0 /100 GQCSysits6Ddji Health SystemComment on above: Performed By: #### CBCD #### [place] [address] [place], [place] [address]Ipktmzzqq (Bld) [#/Vol]289 10*3/iZAwjojf990-848Vtlt Health SystemComment on above:Performed By: #### CBCD #### [place] [address] [address] [place], [place] [address]KAI (Bld) [#/Vol]4.58 10*6/uLNormal4.5-5.5[facility] Comment on above:Performed By: #### CBCD #### Main Laboratory [address] [address]MDT-EH37.3 VEHnmelu75.0-54.0[facility] HospitalComment on above:Performed By: #### CBCD #### [address] [address]HGA (Bld) [#/Vol]8.4 10*3/uLNormal4.5-11.0[facility] Comment on above:Performed By: #### CBCD #### [address] [address]UQZDQ PORTABLEon 45-31-8540VZBEG PORTABLE *FINAL Date of Service: 12/25/2021 23:07 Adm #: [id number] Reading Dr:HONG BERRY Signoff Dr: HONG BERRY PROCEDURE: CHEST PORTABLE - WXR 0018 REASON FOR EXAM: Chest Pain RESULT: Patient Name: LIMA QUINONES STUDY: CHEST PORTABLE; 12/25/2021 11:07 pm INDICATION: Chest Pain COMPARISON: None ACCESSION NUMBER(S): [id number] ORDERING CLINICIAN: SABA VELÁSQUEZ TECHNIQUE: FINDINGS: Left-sided pacemaker is noted. The cardiomediastinal silhouette is unremarkable. The lungs are clear. No pleural effusion is identified. The osseous structures are intact. IMPRESSION: No acute cardiopulmonary process. Dictation workstation: [id number] Original Interpreting Physician: HONG BERRY MD Original Transcribed by/Date: MMODAL Dec 25 2021 10:44P Original Electronically Signed by/Date: HONG BERRY MD Dec 26 2021 7:25A Addendum Interpreting Physician: Addendum Transcribed by/Date: NO ADDENDUM Addendum Electronically Signed by/Date:[facility] HospitalEKGon 12-26-2021 ElectrocardiogramEKG Ventricular Rate : 94 BPM Atrial Rate : 94 BPM P-R Interval : 152 ms QRS Duration : 118 ms Q-T Interval : 362 ms QTC Calculation(Bazett) : 452 ms Calculated P [place] : 47 degrees Calculated R [place] : 30 degrees Calculated T [place] : 55 degrees Diagnosis:Electronic atrial pacemaker Incomplete right bundle branch block Borderline ECG When compared with ECG of 25-DEC-2021 21:59, PREVIOUS ECG IS PRESENT Confirmed by Suyapa Sosa ([id number]) on 01/26/2022 5:12:00 AMNBeth David HospitalHS TROPONIN Ton 59-01-6174BX TROPONIN T DELTANormal0-4[facility] Comment on above:Result Comment: No previous result Performed at [address] [address]Yqidqtntf By: #### HSTROP #### Main Laboratory [address] [address]VT TROPONIN T,GEN 56 NG/LNormal<15[facility] HospitalComment on above:Result Comment: Sex Specific Reference Range: Male (0-22), Female (0-14) Change(Delta) >=5 is significant Troponin Baseline and Serial elevation for significant change(delta)should be interpreted in conjunction with clinical presentation, history, signs and symptoms, ECG and biomarker concentrations. Troponin elevation can be seen in several other non-infarct conditions. Chronic troponin elevations can be detected in clinically stable patients with heart failure, cardiomyopathy, renal failure, diabetes, etc. Elevated troponin can also occur in myocarditis, heart contusion, PE, drug induced cardiotoxicity, etc. Samples should NOT be taken from patients receiving high dose biotin (> 5mg) doses until 8 hours following last biotin administration.Performed By: #### HSTROP #### Main Laboratory [address] [address]IRJjd 75-85-8632UjltlsceqaakxwzoxEKG Ventricular Rate : 103 BPM P-R Interval : 148 ms QRS Duration : 122 ms Q-T Interval : 352 ms QTC Calculation(Bazett) : 461 ms Calculated P [place] : 68 degrees Calculated R [place] : 71 degrees Calculated T [place] : 65 degrees Diagnosis:Abnormal ECG Unconfirmed Sinus tachycardia Right bundle branch block Confirmed by KAPIL CASSIDY ([id number]) on 12/28/2021 4:42:38 PMNBeth David HospitalLaboratory - Chemistry and Chemistry - challengeon 32-09-0438Zprdw gap [Moles/Vol]Anion Gap 13 MMOL/L (0-19 MMOL/L)0 - 19 MMOL/LLHS EnterpriseCalcium [Mass/Vol]Calcium 9.2 MG/DL (8.5-10.4 MG/DL)8.5 - 10.4 MG/DLLHS [place] Chloride [Moles/Vol]Chloride 102 MMOL/L (97-107 MMOL/L)97 - 107 MMOL/LLHS EnterpriseCO2 [Moles/Vol]Carbon Dioxide 24 MMOL/L (24-31 MMOL/L)24 - 31 MMOL/L LHS EnterpriseCreatinine [Mass/Vol]Creatinine R 1.0 MG/DL (0.4-1.6 MG/DL)0.4 - 1.6 MG/DLLHS EnterpriseGFR/1.73 sq M.predicted MDRD (S/P/Bld) [Vol rate/Area] EGFR 101 mL/min/1.73 m2 (Reference Range: not available) CALCULATIONS OF ESTIMATED GFR ARE PERFORMED USING THE 2020 CKD-EPI STUDY REFIT EQUATION WITHOUT THE RACE VARIABLE FOR THE IDMS-TRACEABLE CREATININE METHODS. https://jasn.asnjournals.org/content/early//ASN.4809058264 Performed at [address] [address]JLS EnterpriseGlucose [Mass/Vol]Glucose 102 MG/DL H (65-99 MG/DL)High65 - 99 MG/DLLHS [place] Potassium [Moles/Vol]Potassium R 3.7 MMOL/L (3.4-5.1 MMOL/L)3.4 - 5.1 MMOL/LLHS EnterpriseSodium [Moles/Vol]Sodium 139 MMOL/L (133-145 MMOL/L)133 - 145 MMOL/L LHS EnterpriseTroponin T.cardiac [Mass/Vol]HS Troponin T,Gen 5 6 NG/L (-<15 NG/L) Sex Specific Reference Range: Male (0-22), Female (0-14) Change(Delta) >=5 is significant Troponin Baseline and Serial elevation for significant change(delta)should be interpreted in conjunction with clinical presentation, history, signs and symptoms, ECG and biomarker concentrations. Troponin elevation can be seen in several other non-infarct conditions. Chronic troponin elevations can be detected in clinically stable patients with heart failure, cardiomyopathy, renal failure, diabetes, etc. Elevated troponin can also occur in myocarditis, heart contusion, PE, drug induced cardiotoxicity, etc. Samples should NOT be taken from patients receiving high dose biotin (> 5mg) doses until 8 hours following last biotin administration.[facility] [place] Urea nitrogen [Mass/Vol]BUN 18 MG/DL (8-25 MG/DL)8 - 25 MG/DLLHS EnterpriseUrea nitrogen/Creatinine [Mass ratio]BUN Creatinine Ratio 18.0 RATIO (8-21 RATIO)8 - 21 RATIOLHS EnterpriseLaboratory - Hematology and Cell countson 12-25-2021 Basophils (Bld) [#/Vol]Abs Baso 0.03 K/UL (0.00-0.22 K/UL)0.00 - 0.22 K/ULLHS EnterpriseBasophils/100 WBC (Bld)Basophil 0.40 % (0-1 %)0 - 1 %S [place] Differential cell count method Nom (Bld)Diff Type AUTO DIFF (Reference Range: not available) LHS EnterpriseEosinophils (Bld) [#/Vol]Abs Eos 0.08 K/UL (0-0.45 K/UL)0 - 0.45 K/ULLHS EnterpriseEosinophils/100 WBC (Bld)Eosinophil 1.00 % (0-3 %)0 - 3 %LHS EnterpriseErythrocyte distribution width (RBC) [Entitic vol]RDW SD 39.3 FL (37.0-54.0 FL)37.0 - 54.0 FLLHS EnterpriseErythrocyte distribution width (RBC) [Ratio]RDW CV 12.5 % (11.7-15.0 %)11.7 - 15.0 %LHS EnterpriseHematocrit (Bld) [Volume fraction]HCT 39.6 % L (41-50 %)Low41 - 50 %LHS EnterpriseHemoglobin (Bld) [Mass/Vol]HGB 13.3 GM/DL L (13.5-16.5 GM/DL)Low13.5 - 16.5 GM/DLLHS EnterpriseImmature granulocytes (Bld) [#/Vol]Abs Imm Neut 0.02 K/UL (0.0-0.1 K/UL)0.0 - 0.1 K/ULLHS EnterpriseLymphocytes (Bld) [#/Vol]Abs Lymph 1.93 K/UL (1.2-3.2 K/UL)1.2 - 3.2 K/ULLHS EnterpriseLymphocytes/100 WBC (Bld)Lymphocyte 23.00 % (20-40 %)20 - 40 %S EnterpriseMCH (RBC) [Entitic mass]MCH 29.0 PG (26- 34 PG)26 - 34 PGLHS EnterpriseMCHC (RBC) [Mass/Vol]MCHC 33.6 % (31-37 %)31 - 37 %S EnterpriseMCV (RBC) [Entitic vol]MCV 86.5 FL (80-100 FL)80 - 100 FLLHS EnterpriseMonocytes (Bld) [#/Vol]Abs Cocke 0.63 K/UL (0-0.8 K/UL)0 - 0.8 K/ULLHS EnterpriseMonocytes/100 WBC (Bld)Monocyte 7.50 % (0-8 %)0 - 8 %[facility] [place] Neutrophils (Bld) [#/Vol]Abs.Neut.Calculated 5.70 K/UL (Reference Range: not available) Performed at [address] [address]DDL [place] Neutrophils (Bld) [#/Vol]Abs Neut 5.70 K/UL (1.8-7.7 K/UL)1.8 - 7.7 K/ULHS EnterpriseNeutrophils.immature/100 WBC (Bld)Immature Neut % 0.20 % (0.0-1.0 %) 0.0 - 1.0 %S EnterpriseNucleated RBC/100 WBC (Bld) [Ratio]NRBCs 0 /100 WBC (0 /100 WBC)[facility] EnterprisePlatelet mean volume (Bld) [Entitic vol]MPV 9.8 CU (7.0- 12.6 CU)7.0 - 12.6 CULHS EnterprisePlatelets (Bld) [#/Vol]PLT 289 K/UL (150-450 K/UL)150 - 450 K/ULLHS EnterpriseRBC (Bld) [#/Vol]RBC 4.58 M/UL (4.5-5.5 M/UL) 4.5 - 5.5 M/ULLHS EnterpriseSegmented neutrophils/100 WBC (Bld)Granulocyte 67.90 % (50-70 %)50 - 70 %[facility] EnterpriseWBC (Bld) [#/Vol]WBC 8.4 K/UL (4.5-11.0 K/UL) 4.5 - 11.0 K/ULLHS EnterpriseNo Panel Informationon [id number] Troponin T Delta No previous result Performed at [address] [address] (0-4 )0 - 4LHS EnterpriseXR Chest Portable (1view) (Reference Range: not available) *FINAL Date of Service: 12/25/2021 23:07 Adm #: [id number] Reading Dr:HONG BERRY Signoff Dr: HONG BERRY PROCEDURE: CHEST PORTABLE - WXR 0018 REASON FOR EXAM: Chest Pain RESULT: Patient Name: LIMA QUINONES STUDY: CHEST PORTABLE; 12/25/2021 11:07 pm INDICATION: Chest Pain COMPARISON: None ACCESSION NUMBER(S): [id number] ORDERING CLINICIAN: SABA VELÁSQUEZ TECHNIQUE: FINDINGS: Left-sided pacemaker is noted. The cardiomediastinal silhouette is unremarkable. The lungs are clear. No pleural effusion is identified. The osseous structures are intact. IMPRESSION: No acute cardiopulmonary process. Dictation workstation: [id number] Original Interpreting Physician: HONG BERRY MD Original Transcribed by/Date: MMODAL Dec 25 2021 10:44P Original Electronically Signed by/Date: HONG BERRY MD Dec 26 2021 7:25A Addendum Interpreting Physician: Addendum Transcribed by/Date: NO ADDENDUM Addendum Electronically Signed by/Date: [facility] EnterpriseXR CHEST 2 Von 27-55-4855EQ CHEST 2 VEXAMINATION: XR CHEST 2 V HISTORY: Cardiac pacemaker in situ COMPARISON: 10/10/2019 TECHNIQUE: PA and lateral FINDINGS: LUNGS: No significant pulmonary parenchymal abnormalities. VASCULATURE: No increased pulmonary vasculature. PLEURA: No pneumothorax, effusion, or pleural thickening. CARDIAC: No cardiomegaly or cardiac silhouette abnormality. MEDIASTINUM: No visible mass or adenopathy. Left bipolar pacemaker BONES: No fracture or visible bone lesion. OTHER: Negative. IMPRESSION: No acute disease. Electronically authenticated by: FLORENCE LOPEZ Date: 2021-11-22 09:04[facility] HospitalCardiovascular Lab Reporton [id number] Lab Report [facility] Patient [facility]: [facility] MR #: [id number] Physician: Madhu Swift MD Department of Service Date: 11/20/2021 Medicine Birthdate: 1985 Division of Room #: CC Cardiology Adult Cardiovascular Services [facility] [address] [facility]. [place] [address] Cardiovascular Laboratory Report RV LEAD EXTRACTION, NEW RV LEAD IMPLANT POCKET REVISION PROCEDURE NOTE DATE OF PROCEDURE: 11/20/2021 PERFORMING PHYSICIAN: Dr Madhu Swift CONSENT: Patient LOCATION: EP Lab PROCEDURE PERFORMED: 1. Lead extraction of RV lead. 2. New RV lead implant 3. Pocket Revision. INDICATIONS: 1. RV lead dislodgement leading to increase thresholds. 2. Sinus node dysfunction. PROCEDURAL SEDATION: Versed and Fentanyl. Moderate sedation was administered by the sedation nurse under my supervision and noted in the CVL log. Intraprocedural face to face sedation time: 67min. Monitoring: Cardiac telemetry, Blood pressure, continuous pulse oxymetry. FLUROSCOPY: 2min 55s/ 8mGy PREPARATION: 36-year-old gentleman with a history of a dual-chamber pacemaker placed by Dr. Reaves for sinus node dysfunction. However, he was subsequently noted to have very high RV thresholds with failure to capture at 5 V at 0.5 millisecond. The device had to be programmed at 4 V at 2 milliseconds for any sort of capture. Thankfully, he was not having much of RV pacing. I had a discussion with the patient and the choice was to leave the catheters or to have an extraction of the reimplant and the patient opted to have extraction of the implant. PROCEDURAL DETAILS: Patient was placed in supine position and I decided to proceed with opening of the pocket. He was noted to have significant scarring from his 1st incision. I decided to take the same incision to avoid a 2nd scar. Local infiltration of 1% Lidocaine was performed, and an incision was created in the left upper chest over the previous incision. Dissection was then performed using cautery down to the capsule of the previously implanted pacemaker device. The old leads were identified and subsequently freed up the RV lead and the RA lead. Following this, a stylet was passed down into the RV and the lead unscrewed with multiple counter clockwise movement. Slowly with mechanical traction, the tip of the lead did not come out easily, so we waited and had gentle mechanical traction, and at this time, the lead came out. No hemodynamic changes were noted, following which, under fluoroscopic guidance, a micropuncture needle was used to access and micropuncture wire was advanced and a sheath placed over this. A 6-Georgian sheath was used and thereafter a Biotronik lead was advanced down into the mid RV where pacing complex revealed a QRS of 126. [place] was activated and the lead secured and lead suture with three 1-0 silk sutures and then connected to the generator. A thorough irrigation with antibiotic solution was done and the device was tacked to the underlying muscle. The pocket was closed in layers: subcutaneous layer using 2-0 Vicryl and subcuticular using 3-0 Biosyn absorbable monofilament suture. Glue was applied and dressing was placed on top. Lead parameters were then rechecked through the device as noted below. Device info: Implanted on 04/26/2019 Biotronik Edora 8 DR-T Serial #[id number]. RA lead: Implanted on 04/26/2019 Biotronik Solia S53 Serial# [id number] Sensin.9mV Threshold: 0.8V @ 0.4 millisecond Impedance: 526 Ohms RV lead: Biotronik Solia S60 Serial# [id number] Sensin.5mV Threshold: 0.8V @ 0.4 millisecond Impedance: 546 Ohms POST PROCEDURE EXAM: Patient was hemodynamically stable. COMPLICATIONS: None. ESTIMATED BLOOD LOSS: 5cc IMPRESSION: 1. Successful pacemaker lead extraction and new RV lead implant. 2. Pocket revision. RECOMMENDATIONS: 1. Dressing to be removed after 2 weeks 2. Do not wet the incision for 7 days 3. F/u in device clinic 2 weeks from discharge or sooner for any concerns 4. No heavy lifting for 1 week. 5. Doxycycline 100mg bid x 10 d. Madhu Swift MD Cardiac Electrophysiology Please do not type below this line Electronically Signed by: Madhu Swift MD 11/22/2021 04:58 P Madhu Swift MD Date Dict: 11/20/2021/03:30 P/Madhu Swift MD Date Trans: 11/20/2021 05:50 P/mmo DN_JN:[id number] Wert County HospitalCovid-19 PCR (CVDTBH)on 37-38-9305FICW-CoV-2 (COVID-19) RNA CESAR+probe Ql (Unsp spec)Not detectedNormalNOT DETECTEDThe [facility] Hospital, Edwin ShawComment on above:Result Comment: This test is not yet approved or cleared by the [place] FDA. When there are no FDA-approved or cleared tests available, and other criteria are met, FDA can make tests available under an emergency access mechanism called an Emergency Use Authorization (EUA). The EUA for this test is supported by the [employer] of Health and Human Service's (HHS's) declaration that circumstances exist to justify the emergency use of in vitro diagnostics for the detection and/or diagnosis of the virus that causes COVID-19. This EUA will remain in effect (meaning this test can be used) for the duration of the COVID-19 declaration justifying emergency of IVDs, unless it is terminated or revoked by FDA (after which the test may no longer be used). When diagnostic testing is negative, the possibility of a false negative should be considered in the context of a patient's recent exposures and the presence of clinical signs and symptoms consistent with SARS-CoV-2.Performed By: #### CVDTBH #### [facility] Laboratory [address] [place] [address] Dr. Lavonne KumarHEMOGRAM AND Sam 12-12-5817Sftgqcdrbd (Bld) [Volume fraction]41.2 %Critically low42.0-54.0The [facility] Limament on above: Performed By: #### HH #### [facility] [address] [place] [address] Dr. Lavonne KumarHemoglobin (Bld) [Mass/Vol]13.8 g/dLCritically low14.0-18.0The [facility] ShawComment on above:Performed By: #### HH #### [facility] [address] [place] [address] Dr. Lavonne HeinH (RBC) [Entitic mass]29.1 nmDzjsjs99.9-34.0The [facility] ShawComment on above:Performed By: #### HH #### [facility] [address] [place] [address] Dr. Lavonne [facility]RI[facility] (RBC) [Mass/Vol]33.5 g/dLEqlxbi21.9-35.2The [facility] ShawComment on above:Performed By: #### HH #### [facility] [address] [place] [address] Dr. Lavonne HeinV (RBC) [Entitic vol]86.9 kLRfqglo15.0-94.0The [facility] ShawComment on above:Performed By: #### HH #### [facility] [address] [place] [address] Dr. Lavonne KumarPLT264 103/xhChlwca588-054Igk [facility] ShawComment on above: Performed By: #### HH #### [facility] [address] [place] [address] Dr. Lavonne KumarRBC4.74 106/ulNormal4.70-6.10The [facility] ShawComsturgis hospital on above:Performed By: #### HH #### [facility] [address] [place] [address] Dr. Lavonne KumarWBC5.7 103/ulNormal4.0-11.0The [facility] ShawComment on above: Performed By: #### HH #### [facility] [address] [place] [address] Dr. Lavonne KumarPROF CHEM 8 (BAS METB)on 88-22-3381Biern gap [Moles/Vol]9.6 mmol/LNormalThe Berlin HospitalComment on above:Performed By: #### BMP #### [facility] [address] [address] [address] Lavonne KumarCalcium [Mass/Vol]9.3 mg/dLNormal8.5-10.1The [facility] Comment on above:Performed By: #### BMP #### [facility] [address] [address] [address] Lavonne KumarChloride [Moles/Vol]106 mmol/XHqzwav92-584Jwk [facility] Comment on above:Performed By: #### BMP #### [facility] [address] [address] [address] Lavonne KumarCO2 [Moles/Vol]29.9 mmol/ZToggmr34.0-32.0The [facility] Comment on above:Performed By: #### BMP #### [facility] [address] [address] [address] Lavonne KumarCreatinine [Mass/Vol]0.75 mg/dLNormal0.70-1.30The [facility] ShawComment on above:Performed By: #### BMP #### [facility] [address] [address] [address] Lavonne BishopGFR-AF SAMOAN>60Normal>=60The [facility] ShawComment on above:Performed By: #### BMP #### [facility] [address] [address] [address] Lavonne BishopGFR-NON AF SAMOAN>60Normal>=60The [facility] ShawComment on above:Performed By: #### BMP #### [facility] [address] [address] [address] Lavonne KumarGlucose [Mass/Vol]123 mg/dLCritically [id number] [facility] ShawComment on above:Performed By: #### BMP #### [facility] [address] [address] [address] Lavonne KumarPotassium [Moles/Vol]3.5 mmol/LNormal3.5-5.1The [facility] Comment on above:Performed By: #### BMP #### [facility] [address] [place], [place] [address] Dr. Lavonne KumarSodium [Moles/Vol]142 mmol/YIhhmai807-755Hne [facility] Comment on above:Performed By: #### BMP #### [facility] [address] [place], [place] [address] Dr. Lavonne KumarUrea nitrogen [Mass/Vol]18.0 mg/dLNormal7.0-18.0[facility] Boardman HospitalComment on above:Performed By: #### BMP #### [facility] [address] [place], [place] [address] Dr. Lavonne KumarUrea nitrogen/Creatinine [Mass ratio]24.0 mg/mgNormalThe [facility] ShawComment on above:Performed By: #### BMP #### [facility] [address] [address] [address] Lavonne KumarAPTTOrdered By: Alex Armando on [id number] Coag (Bld) [Time] 30.4 [employer] Work Phone: comment on above: IV Heparin Therapy Range: 62.0-94.0 [facility] Phone: comprehensive Metabolic Panel w/ Reflex to MGOrdered By: Alex Armando on 85-80-0706Kprchzw [Mass/Vol]4.1 g/dL3.5 - 5.2 g/dLFutura Medical Phone: albumin/Globulin [Mass ratio]1.7 {ratio}[facility] Phone: aLP (Bld) [Catalytic activity/Vol]92 U/L40 - 129 U/L [facility] Phone: aLT [Catalytic activity/Vol]29 U/L5 - 41 U/LMKaritKarma Phone: anion gap [Moles/Vol]13 mmol/L9 - 17 mmol/LMAbsynth Biologics Work Phone: aST [Catalytic activity/Vol]22 U/L<40[facility] Phone: bilirubin [Mass/Vol]0.35 mg/dL0.3 - 1.2 mg/dLKn[facility] [employer] Phone: calcium [Mass/Vol]8.9 mg/dL8.6 - 10.4 mg/dLKn[facility] Community Hospital [employer] Phone: chloride [Moles/Vol]103 mmol/L98 - 107 mmol/LMtrinity health system west campus [employer] Work Phone: cO2 [Moles/Vol]23 mmol/L20 - 31 mmol/LMcleveland clinic avon hospitaly IT'[employer] Phone: creatinine [Mass/Vol]0.6 mg/dLLow0.70 - 1.20 mg/dL [facility] [employer] Phone: Free PSA/Total PSA [Mass fraction]6.5 g/dL6.4 - 8.3 g/dLKnox Community Hospital [employer] Phone: GFR >60>60 mL/minKnox Community Hospital [employer] Phone: GFR Non->60>60 mL/minKnox Community Hospital [employer] Phone: Glucose [Mass/Vol]133 mg/hEAjvd98 - 99 mg/dLKnox Community Hospital [employer] Phone: Interpretation and review of laboratory results AbnormalKnox Community Hospital [employer] Phone: potassium [Moles/Vol]4.3 mmol/L3.7 - 5.3 mmol/LMtrinity health system west campus [employer] Phone: sodium [Moles/Vol]139 mmol/L135 - 144 mmol/LMcleveland clinic avon hospitaly [employer] Phone: Urea nitrogen (BldV) [Mass/Vol]18 mg/dL6 - 20 mg/dL [facility] [employer] Phone: Urea nitrogen/Creatinine (Bld) [Mass ratio]30HighCleveland Clinic Marymount HospitalOdojo Phone: [facility] [employer] Phone: [phone]-Achtq, QuantitativeOrdered By: Alex Armando on 04-74-9308F-Dimer, Quant0.30[facility] HospitalO[facility]jo Phone: comment on above: When combined with a low clinical probability, a D dimer value of <0.50 mg/L FEU is considered negative for DVT and PE (negative predictive value of 98%, sensitivity of 97%). If this test is not being used to help rule out DVT and PE, then the following reference range should be utilized: 0.00 - 0.59 mg/L FEU. The D-Dimer assay is intended for use as an aid in the diagnosis of venous thromboembolism (DVT and PE) and the results should be interpreted in conjunction with the patient's medical history, clinical presentation, and other findings. Elevated levels of D-dimer activity can be seen in any state of coagulation activation and is not recommended in patients with therapeutic dose anticoagulant therapy for >24 hours, fibrinolytic therapy within the previous 7 days, trauma or surgery within the previous 4 weeks, disseminated malignancies, aortic aneurysm, sepsis, severe infections, pneumonia, severe skin infections, liver cirrhosis, advanced age, coronary disease, diabetes, and . A very low percentage of patients with DVT may yield D-dimer results below the cutoff of 0.5 mg/L FEU. This is known to be more prevalent in patients with distal DVT. [facility] HospitalSt[facility] Communications Phone: eKG Rhythm StripOrdered By: Unknown Result on 30-22-4600rm-labeled to Atrial Paced csMtrinity health system west campus [employer] Phone: [facility] Phone: [phone] to Sinus RhythmKnox Community Hospital [employer] Phone: [facility] [employer] Phone: FibrinogenOrdered By: Alex Armando on 12-16-2020 Jzagdmsrck752 mg/dL179 - 518 mg/dLCleveland Clinic Marymount HospitalOdojo Phone: [facility] HospitalO[facility] Phone: laboratory - Chemistry and Chemistry - challenge Ordered By: Alex Armando on 84-53-6319KZG/1.73 sq M.predicted MDRD (S/P/Bld) [Vol rate/Area][facility] Phone: comment on above:Average GFR for 30-39 years old: 107 mL/min/1.73sq m Chronic Kidney Disease: <60 mL/min/1.73sq m Kidney failure: <15 mL/min/1.73sq m eGFR calculated using average adult body mass. Additional eGFR calculator available at: http://www.[employer]/multiple_crcl_2012.htm Stage 1: Some kidney damage normal GFR Stage 2: Mild kidney damage GFR 60-89 Stage 3: Moderate kidney damage GFR 30-59 Stage 4: Severe kidney damage GFR 15-29 Stage 5: Severe kidney damage GFR <15 ESRD - chronic treatment by dialysis or transplant Protime-INROrdered By: Alex Armando on 01-56-3147TSM Coag (Bld) [Relative time]1.1 {INR}[facility] Phone: comment on above: Non-therapeutic Range: INR = 0.9-1.2 Therapeutic Range: Moderate Anticoagulant Intensity: INR = 2.0-3.0 High Anticoagulant Intensity: INR = 2.5-3.5 Interpretation and review of laboratory resultsAbnormsdF[facility] Phone: pT Coag (PPP) [Time]14.4 [facility] HospitalKaritKarma Phone: [facility] Phone: aPTTOrdered By: Alex Armando on 93-74-1339wVVF Coag (Bld) [Time]29.9 [employer] Phone: comment on above: IV Heparin Therapy Range: 62.0-94.0 [facility] Phone: comprehensive Metabolic Panel w/ Reflex to MGOrdered By: Alex Armando on 88-94-5606Kpsnzqd [Mass/Vol]4.2 g/dL3.5 - 5.2 g/dLCleveland Clinic Marymount HospitalOdojo Phone: albumin/Globulin [Mass ratio]1.7 {ratio}[facility] HospitalSt[facility] Communications Phone: QLP (Bld) [Catalytic activity/Vol]96 U/L40 - 129 U/L [facility] HospitalSt[facility] Phone: ZLT [Catalytic activity/Vol]20 U/L5 - 41 U/LMcleveland clinic avon hospitaly [employer] Work Phone: Snion gap [Moles/Vol]13 mmol/L9 - 17 mmol/LMcleveland clinic avon hospitaly [employer] Work Phone: LST [Catalytic activity/Vol]21 U/L<40[facility] [employer] Phone: bilirubin [Mass/Vol]0.31 mg/dL0.3 - 1.2 mg/dLCleveland Clinic Marymount HospitalOdojo Phone: calcium [Mass/Vol]9.2 mg/dL8.6 - 10.4 mg/dLCleveland Clinic Mary[facility] HospitalOdojo Phone: Chloride [Moles/Vol]104 mmol/L98 - 107 mmol/LMtrinity health system west campus [employer] Work Phone: cO2 [Moles/Vol]25 mmol/L20 - 31 mmol/LMtrinity health system west campus [employer] Work Phone: creatinine [Mass/Vol]0.62 mg/dLLow0.70 - 1.20 mg/dL [facility] [employer] Phone: Free PSA/Total PSA [Mass fraction]6.7 g/dL6.4 - 8.3 g/dLCleveland Clinic Mary[facility] HospitalOdojo Phone: GFR >60>60 mL/minCleveland Clinic Marymount HospitalOdojo Phone: GFR Non->60>60 mL/minCleveland Clinic Marymount HospitalOdojo Phone: Glucose [Mass/Vol]130 mg/gUTpsu15 - 99 mg/dLCleveland Clinic Mary[facility] HospitalOdojo Phone: Interpretation and review of laboratory results AbnormalC[facility] Clinic Mary[facility] HospitalOdojo Phone: potassium [Moles/Vol]4.3 mmol/L3.7 - 5.3 mmol/LMcleveland clinic avon hospitaly [employer] Phone: sodium [Moles/Vol]142 mmol/L135 - 144 mmol/LMcleveland clinic avon hospitaly [employer] Phone: Urea nitrogen (BldV) [Mass/Vol]17 mg/dL6 - 20 mg/dL [facility] [employer] Phone: Urea nitrogen/Creatinine (Bld) [Mass ratio]27HighCleveland Clinic Marymount HospitalOdojo Phone: [facility] Phone: [phone]-Fjhuu, QuantitativeOrdered By: Alex Armando on 19-84-8851Z-Dimer, Quant0.52[facility] HospitalO[facility] Phone: comment on above: When combined with a low clinical probability, a D dimer value of <0.50 mg/L FEU is considered negative for DVT and PE (negative predictive value of 98%, sensitivity of 97%). If this test is not being used to help rule out DVT and PE, then the following reference range should be utilized: 0.00 - 0.59 mg/L FEU. The D-Dimer assay is intended for use as an aid in the diagnosis of venous thromboembolism (DVT and PE) and the results should be interpreted in conjunction with the patient's medical history, clinical presentation, and other findings. Elevated levels of D-dimer activity can be seen in any state of coagulation activation and is not recommended in patients with therapeutic dose anticoagulant therapy for >24 hours, fibrinolytic therapy within the previous 7 days, trauma or surgery within the previous 4 weeks, disseminated malignancies, aortic aneurysm, sepsis, severe infections, pneumonia, severe skin infections, liver cirrhosis, advanced age, coronary disease, diabetes, and . A very low percentage of patients with DVT may yield D-dimer results below the cutoff of 0.5 mg/L FEU. This is known to be more prevalent in patients with distal DVT. [facility] Phone: eKG Rhythm StripOrdered By: Unknown Result on 80-63-6807xc-labeled to Atrial PacedCleveland Clinic Marymount HospitalOdojo Phone: [employer] Phone: [phone] to Atrial PacedCleveland Clinic Marymount HospitalShopmium Work Phone: [facility] Phone: [phone] to Atrial PacedCleveland Clinic Marymount HospitalShopmium Work Phone: [facility] Phone: FibrinogenOrdered By: Alex Armando on 12-15-2020 Zsegvotmjm840 mg/dL179 - 518 mg/dLCleveland Clinic Marymount HospitalOdojo Phone: [facility] Phone: laboratory - Chemistry and Chemistry - challenge Ordered By: Alex Armando on 24-03-3129FTN/1.73 sq M.predicted MDRD (S/P/Bld) [Vol rate/Area][facility] Phone: comment on above:Average GFR for 30-39 years old: 107 mL/min/1.73sq m Chronic Kidney Disease: <60 mL/min/1.73sq m Kidney failure: <15 mL/min/1.73sq m eGFR calculated using average adult body mass. Additional eGFR calculator available at: http://www.[employer]/multiple_crcl_2012.htm Stage 1: Some kidney damage normal GFR Stage 2: Mild kidney damage GFR 60-89 Stage 3: Moderate kidney damage GFR 30-59 Stage 4: Severe kidney damage GFR 15-29 Stage 5: Severe kidney damage GFR <15 ESRD - chronic treatment by dialysis or transplant Protime-INROrdered By: Alex Armando on 93-86-4539RMB Coag (Bld) [Relative time]1.0 {INR}[facility] Phone: comment on above: Non-therapeutic Range: INR = 0.9-1.2 Therapeutic Range: Moderate Anticoagulant Intensity: INR = 2.0-3.0 High Anticoagulant Intensity: INR = 2.5-3.5 PT Coag (PPP) [Time]12.8 [employer] Phone: [facility] Phone: aPTTOrdered By: Alex Armando on 87-37-8013iFTO Coag (Bld) [Time]33.7 sMtrinity health system west campus [employer] Work Phone: comment on above: IV Heparin Therapy Range: 62.0-94.0 C-Reactive ProteinOrdered By: Alex Armando on 01-72-4184CFZ [Mass/Vol]20 mg/LHigh 0.0 - 5.0 mg/LMtrinity health system west campus [employer] Work Phone: Interpretation and review of laboratory results AbnormalCleveland Clinic Marymount HospitalOdojo Phone: [facility] Phone: cBCOrdered By: Alex Armando on 88-36-1388Rcfzghxhjz (Bld) [Volume fraction]44.6 %40.7 - 50.3 %[facility] HospitalStaccato Communications Phone: Hemoglobin.gastrointestinal spec 1 Ql (Stl)14.5 g/dL 13.0 - 17.0 g/dLCleveland Clinic Marymount HospitalOdojo Phone: Interpretation and review of laboratory results AbnormalCleveland Clinic Marymount HospitalOdojo Phone: MCH (RBC) [Entitic mass]28.3 pg25.2 - 33.5 pgCleveland Clinic Marymount HospitalOdojo Phone: MCHC (RBC) [Mass/Vol]32.5 g/dL28.4 - 34.8 g/dLCleveland Clinic Marymount HospitalOdojo Phone: MCV (RBC) [Entitic vol]87.1 fL82.6 - 102.9 fLCleveland Clinic Marymount HospitalOdojo Phone: NRBC Automated0.00.0 per 100 WBCCleveland Clinic Marymount HospitalOdojo Phone: platelet distribution width (Bld) [Ratio]12.4 %11.8 - 14.4 %[facility] HospitalStacc[facility] Communications Phone: platelet mean volume (Bld) [Entitic vol]9.8 fL8.1 - 13.5 fLCleveland Clinic Marymount HospitalOdojo Phone: Ylatelets (Bld) [#/Vol]220 10*3/uLCleveland Clinic Marymount HospitalShopmium Work Phone: RBC (Bld) [#/Vol]5.12 10*6/uL4.21 - 5.77 m/uLCleveland Clinic Marymount HospitalOdojo Phone: WBC (Bld) [#/Vol]1.5 10*3/uLLowCleveland Clinic Marymount HospitalShopmium Work Phone: [facility] HospitalShopmium Work Phone: comprehensive Metabolic Panel w/ Reflex to MGOrdered By: Alex Armando on 57-42-7563Ettqvnc [Mass/Vol]4.3 g/dL3.5 - 5.2 g/dLCleveland Clinic Marymount HospitalOdojo Phone: Klbumin/Globulin [Mass ratio]1.5 {ratio}[facility] HospitalSt[facility] Communications Phone: BLP (Bld) [Catalytic activity/Vol]107 U/L40 - 129 U/L [facility] HospitalSt[facility] Phone: LLT [Catalytic activity/Vol]15 U/L5 - 41 U/LMcleveland clinic avon hospitalStaccato Communications Phone: anion gap [Moles/Vol]11 mmol/L9 - 17 mmol/LMcleveland clinic avon hospitaly [employer] Phone: aST [Catalytic activity/Vol]20 U/L<40[facility] HospitalO[facility] Phone: bilirubin [Mass/Vol]0.40 mg/dL0.3 - 1.2 mg/dLCleveland Clinic Mary[facility] HospitalOdojo Phone: calcium [Mass/Vol]9.1 mg/dL8.6 - 10.4 mg/dLCleveland Clinic Marymount HospitalOdojo Phone: Rhloride [Moles/Vol]101 mmol/L98 - 107 mmol/LMcleveland clinic avon hospitalSeeMe Work Phone: cO2 [Moles/Vol]26 mmol/L20 - 31 mmol/LMtrinity health system [facility] campus [employer] Phone: creatinine [Mass/Vol]0.62 mg/dLLow0.70 - 1.20 mg/dL [facility] [employer] Phone: Free PSA/Total PSA [Mass fraction]7.1 g/dL6.4 - 8.3 g/dLKn[facility] Hospital [employer] Phone: GFR >60>60 mL/minKn[facility] Community Hospital [employer] Phone: GFR Non->60>60 mL/minKn[facility] Hospital [employer] Phone: Glucose [Mass/Vol]171 mg/fATdcp91 - 99 mg/dLKn[facility] [employer] Phone: Interpretation and review of laboratory results AbnormalKn[facility] Hospital [employer] Phone: potassium [Moles/Vol]4.2 mmol/L3.7 - 5.3 mmol/LMtrinity health system west campus [employer] Phone: sodium [Moles/Vol]138 mmol/L135 - 144 mmol/LMMcKitrick Hospital [employer] Phone: Urea nitrogen (BldV) [Mass/Vol]15 mg/dL6 - 20 mg/dL [facility] [employer] Phone: Urea nitrogen/Creatinine (Bld) [Mass ratio]24HighKnox Community Hospital [employer] Phone: [facility] [employer] Phone: [phone]-Mpsdr, QuantitativeOrdered By: Alex Armando on 78-85-7855H-Dimer, Quant0.69[facility] [employer] Phone: comment on above: When combined with a low clinical probability, a D dimer value of <0.50 mg/L FEU is considered negative for DVT and PE (negative predictive value of 98%, sensitivity of 97%). If this test is not being used to help rule out DVT and PE, then the following reference range should be utilized: 0.00 - 0.59 mg/L FEU. The D-Dimer assay is intended for use as an aid in the diagnosis of venous thromboembolism (DVT and PE) and the results should be interpreted in conjunction with the patient's medical history, clinical presentation, and other findings. Elevated levels of D-dimer activity can be seen in any state of coagulation activation and is not recommended in patients with therapeutic dose anticoagulant therapy for >24 hours, fibrinolytic therapy within the previous 7 days, trauma or surgery within the previous 4 weeks, disseminated malignancies, aortic aneurysm, sepsis, severe infections, pneumonia, severe skin infections, liver cirrhosis, advanced age, coronary disease, diabetes, and . A very low percentage of patients with DVT may yield D-dimer results below the cutoff of 0.5 mg/L FEU. This is known to be more prevalent in patients with distal DVT. Interpretation and review of laboratory resultsAbnoSpotcast Inc.sdF[facility]ura Medical Phone: [facility] Phone: eKG 12 LeadOrdered By: Karli Plummer on 12-14-2020 Atrial Idvi71ITLKqtrhMilford Auto Supply Phone: p Oqsp07yxeptpeFpchsShopRunner Phone: p-R Dellujxw095 [employer] Phone: Q-T Rmhatkhk095 [employer] Phone: QRS Itgjpqzc519 [employer] Phone: QTc Calculation (Bazett)440 [employer] Phone: r Qfaq0xcuajehAopziShopRunner Phone: T Jspb73ruzsnrsRmjjpShopRunner Phone: Ventricular Ypjb13MTSVldzlMilford Auto Supply Phone: Normal sinus rhythm Incomplete right bundle branch block Borderline ECG When compared with ECG of 07-DEC-2020 23:02, No significant change was found Confirmed by RONALDO [place] ([id number]) on 12/14/2020 5:04:12 PM [facility] Phone: eshiraz [facility] Incoming Ekg Results From [employer] - 12/14/2020 5:04 PM EDT Normal sinus rhythm Incomplete right bundle branch block Borderline ECG When compared with ECG of 07-DEC-2020 23:02, No significant change was found Confirmed by RONALDO [place] ([id number]) on 12/14/2020 5:04:12 PMCleveland Clinic Marymount HospitalShopmium Work Phone: [facility] HospitalShopmium Work Phone: eKG Rhythm StripOrdered By: Unknown Result on 35-31-9578lw-labeled to Atrial PacedCleveland Clinic Marymount HospitalShopmium Work Phone: [facility] HospitalShopmium Work Phone: [phone] to Atrial PacedCleveland Clinic Marymount HospitalShopmium Work Phone: [facility] [employer] Work Phone: [phone] to Atrial Paced ROUTINECleveland Clinic Marymount HospitalShopmium Work Phone: [facility] HospitalShopmium Work Phone: FerritinOrdered By: Alex Armando on 32-63-0647Qeadjtdc 832 ug/LHigh30 - 400 ug/LMercy [employer] Work Phone: Interpretation and review of laboratory results AbnormalCleveland Clinic Marymount HospitalOdojo Phone: [facility] Phone: FibrinogenOrdered By: Alex Armando on 12-14-2020 Lemytzfnxf765 mg/dL179 - 518 mg/dLCleveland Clinic Marymount HospitalOdojo Phone: [facility] HospitalOdojo Phone: laboratory - Chemistry and Chemistry - challenge Ordered By: Alex Armando on 18-81-4488ZKB/1.73 sq M.predicted MDRD (S/P/Bld) [Vol rate/Area][facility] HospitalSt[facility] Phone: comment on above:Average GFR for 30-39 years old: 107 mL/min/1.73sq m Chronic Kidney Disease: <60 mL/min/1.73sq m Kidney failure: <15 mL/min/1.73sq m eGFR calculated using average adult body mass. Additional eGFR calculator available at: http://www.[employer]/multiple_crcl_2012.htm Stage 1: Some kidney damage normal GFR Stage 2: Mild kidney damage GFR 60-89 Stage 3: Moderate kidney damage GFR 30-59 Stage 4: Severe kidney damage GFR 15-29 Stage 5: Severe kidney damage GFR <15 ESRD - chronic treatment by dialysis or transplant No Panel InformationOrdered By: Alex Armando on 74-37-6056TlzgoFutura Medical Phone: [phone]-JXVLevzbxf By: Alex Armando on 85-01-8601EAZ Coag (Bld) [Relative time]1.0 {INR}[facility] Phone: comment on above: Non-therapeutic Range: INR = 0.9-1.2 Therapeutic Range: Moderate Anticoagulant Intensity: INR = 2.0-3.0 High Anticoagulant Intensity: INR = 2.5-3.5 PT Coag (PPP) [Time]12.9 [employer] Phone: aPTTOrdered By: Alex Armando on 34-81-2617lYQQ Coag (Bld) [Time]27.2 [employer] Phone: comment on above: IV Heparin Therapy Range: 62.0-94.0 Blood gas, venousOrdered By: Karli Plummer on [id number] TestNOT REPORTED [facility] Phone: carboxyhemoglobinNOT REPORTED0.0 - 5.0 %[facility] Phone: comment on above: [id number] REPORTEDF[facility]ura Medical Phone: HCO3 (Bld) [Moles/Vol]27.8 mmol/L24.0 - 30.0 mmol/L [facility] Phone: Interpretation and review of laboratory results AbnormalF[facility] Phone: MethemoglobinNOT REPORTED0.0 - 1.9 %[facility] Work Phone: [phone] REPORTEDMercy Health Work Phone: [phone] Base Excess, VenNOT REPORTED0.0 - 2.0 mmol/L [facility] Work Phone: [phone] REPORTEDMer[facility] Work Phone: [phone] TIMENOT REPORTEDMer[facility] Health Work Phone: O2 Device/Flow/%NOT REPORTEDMerBe[facility] Work Phone: Oxygen saturation in Blood25.5 %Low60.0 - 85.0 %[facility] Work Phone: [phone] VCSDEEXK54.0 - 98.0 %[facility] Work Phone: iIZ6, Ven50.3[facility] Work Phone: nWV2, Edgar, Temp AdjNOT REPORTEDMer[facility] Work Phone: [phone]/CpapNOT REPORTED[facility] Work Phone: pH, Ven7.361[facility] Work Phone: pH, Edgar, Temp AdjNOT REPORTED[facility] Work Phone: sK2, Ven18.2LowMercy Health Work Phone: cN0, Edgar, Temp AdjNOT REPORTEDMer[facility] Work Phone: [phone] Base Excess, Ven1.5 mmol/L0.0 - 2.0 mmol/L [facility] Work Phone: [phone] REPORTEDMer[facility] Health Work Phone: Pt Temp37.0[facility] Work Phone: [phone]. PositionNOT REPORTEDMer[facility] Work Phone: [phone] RateNOT REPORTEDMer[facility] Health Work Phone: [phone] SiteNOT REPORTEDMer[facility] Health Work Phone: set RateNOT REPORTEDF[facility] Phone: Text for RespiratoryNOT REPORTED[facility] Phone: Total HbNOT HVUCTACG11.0 - 16.0 g/dlF[facility] Phone: Total RateNOT REPORTED[facility] Phone: VTNOT REPORTED[facility] Phone: [facility] Phone: brain Natriuretic PeptideOrdered By: Karli Plummer on [id number] InterpretationPro-BNP Reference Range:[facility] Phone: comment on above: Rule Out: <300 Crump Zone: Age <50 300-450 Age 50-75 300-900 Age >75 300-1800 Usually represents mild to moderate HF but other cardiopulmonary causes cannot be ruled out. Rule In: Age <50 >450 Age 50-75 >900 Age >75 >1800 Pro-BNP<20<300 pg/mLF[facility] Phone: comment on above:Pro-BNP results cannot be compared to BNP results.CBC Auto DifferentialOrdered By: Karli Plummer on 12-13-2020 Absolute Eos #0.00[facility] Phone: absolute Immature Granulocyte0.00[facility] Phone: absolute Lymph #0.61LowF[facility] Phone: absolute Cocke #0.38[facility] Phone: basophils (Bld) [#/Vol]0.00 10*3/uLFutura Medical Phone: basophils/100 WBC (Bld)0 %0 - 2 %[facility] Phone: differential TypeNOT REPORTEDF[facility] Phone: eosinophils/100 WBC (Bld)0 %Low1 - 4 %[facility] Phone: Hematocrit (Bld) [Volume fraction]42.6 %40.7 - 50.3 % [facility] Phone: Hemoglobin.gastrointestinal spec 1 Ql (Stl)14.1 g/dL 13.0 - 17.0 g/dLCleveland Clinic Marymount HospitalOdojo Phone: Immature granulocytes/100 WBC (Bld)0 %0[facility] Phone: Interpretation and review of laboratory results AbnormalCleveland Clinic Mary[facility] HospitalO[facility]jo Phone: lymphocytes/100 WBC (Bld)19 %Low24 - 43 %[facility] Phone: MCH (RBC) [Entitic mass]28.8 pg25.2 - 33.5 pgCleveland Clinic Marymount HospitalOdojo Phone: MCHC (RBC) [Mass/Vol]33.1 g/dL28.4 - 34.8 g/dLCleveland Clinic Mary[facility] HospitalOdojo Phone: MCV (RBC) [Entitic vol]87.1 fL82.6 - 102.9 fLCleveland Clinic Marymount HospitalOdojo Phone: Monocytes/100 WBC (Bld)12 %3 - 12 %[facility] Phone: Morphology Kemar (Bld) [Interp]NormalCleveland Clinic Marymount HospitalOdojo Phone: NRBC Automated0.00.0 per 100 WBCCleveland Clinic Marymount HospitalOdojo Phone: platelet distribution width (Bld) [Ratio]12.5 %11.8 - 14.4 %[facility] Phone: platelet EstimateNOT REPORTEDCleveland Clinic Marymount HospitalOdojo Phone: platelet mean volume (Bld) [Entitic vol]9.5 fL8.1 - 13.5 fLCleveland Clinic Marymount HospitalOdojo Phone: platelets (Bld) [#/Vol]193 10*3/ErwinOdojo Phone: RBC (Bld) [#/Vol]4.89 10*6/uL4.21 - 5.77 m/[facility] Phone: RBC (Bld) [#/Vol]NOT REPORTEDCleveland Clinic Marymount HospitalOdojo Phone: segmented neutrophils/100 WBC (Bld)69 %High36 - 65 % [facility] Phone: segs Absolute2.21[facility] Phone: WBC (Bld) [#/Vol]3.2 10*3/uLSt. Francis HospitalO[facility] Phone: WBC (Bld) [#/Vol]NOT REPORTEDCleveland Clinic Marymount HospitalOdojo Phone: [facility] Phone: cT CHEST PULMONARY EMBOLISM W CONTRASTOrdered By: Karli Plummer on . No evidence of pulmonary embolus. 2. Findings compatible with bilateral lower lobe pulmonary opacities most compatible with COVID-19 airspace disease without evidence of edema or effusion.[facility] Phone: eXAMINATION: CTA OF THE CHEST 12/13/2020 5:37 pm TECHNIQUE: CTA of the chest was performed after the administration of intravenous contrast. Multiplanar reformatted images are provided for review. MIP images are provided for review. Dose modulation, iterative reconstruction, and/or weight based adjustment of the mA/kV was utilized to reduce the radiation dose to as low as reasonably achievable. COMPARISON: None. HISTORY: ORDERING SYSTEM PROVIDED HISTORY: COVID + h/o heart failure, SOB TECHNOLOGIST PROVIDED HISTORY: COVID + h/o heart failure, SOB Decision Support Exception - unselect if not a suspected or confirmed emergency medical condition->Emergency Medical Condition ([place]) COVID-19 positive FINDINGS: Pulmonary Arteries: Pulmonary arteries are adequately opacified for evaluation. No evidence of intraluminal filling defect to suggest pulmonary embolism. Main pulmonary artery is normal in caliber. Mediastinum: No evidence of mediastinal lymphadenopathy. The heart and pericardium demonstrate no acute abnormality. There is no acute abnormality of the thoracic aorta. Lungs/pleura: Predominantly dependent pulmonary opacities are noted, hazy, some rounded in some ground-glass consistent with bilateral lower lobe airspace disease. Tracheobronchial tree is patent. No gross effusion Upper Abdomen: No acute abnormality in the included upper abdomen. Soft Tissues/Bones: No acute bone orsoft tissue abnormality. Patient has a pacemaker battery box superimposed over the left upper chest.[employer] Work Phone: edi, [facility] Incoming Radiant Results From [employer] - 12/13/2020 6:22 PM EDT EXAMINATION: CTA OF THE CHEST 12/13/2020 5:37 pm TECHNIQUE: CTA of the chest was performed after the administration of intravenous contrast. Multiplanar reformatted images are provided for review. MIP images are provided for review. Dose modulation, iterative reconstruction, and/or weight based adjustment of the mA/kV was utilized to reduce the radiation dose to as low as reasonably achievable. COMPARISON: None. HISTORY: ORDERING SYSTEM PROVIDED HISTORY: COVID + h/o heart failure, SOB TECHNOLOGIST PROVIDED HISTORY: COVID + h/o heart failure, SOB Decision Support Exception - unselect if not a suspected or confirmed emergency medical condition->Emergency Medical Condition (MA) COVID-19 positive FINDINGS: Pulmonary Arteries: Pulmonary arteries are adequately opacified for evaluation. No evidence of intraluminal filling defect to suggest pulmonary embolism. Main pulmonary artery is normal in caliber. Mediastinum: No evidence of mediastinal lymphadenopathy. The heart and pericardium demonstrate no acute abnormality. There is no acute abnormality of the thoracic aorta. Lungs/pleura: Predominantly dependent pulmonary opacities are noted, hazy, some rounded in some ground-glass consistent with bilateral lower lobe airspace disease. Tracheobronchial tree is patent. No gross effusion Upper Abdomen: No acute abnormality in the included upper abdomen. Soft Tissues/Bones: No acute bone or soft tissue abnormality. Patient has a pacemaker battery box superimposed over the left upper chest. IMPRESSION: 1. No evidence of pulmonary embolus. 2. Findings compatible with bilateral lower lobe pulmonary opacities most compatible with COVID-19 airspace disease without evidence of edema or effusion. [facility] Phone: [facility] Phone: comprehensive Metabolic PanelOrdered By: Karli Plummer on 05-72-0491Pwfowya [Mass/Vol]4.1 g/dL3.5 - 5.2 g/dLCleveland Clinic Marymount HospitalOdojo Phone: Glbumin/Globulin [Mass ratio]1.4 {ratio}[facility] Phone: QLP (Bld) [Catalytic activity/Vol]93 U/L40 - 129 U/L [facility] Phone: ALT [Catalytic activity/Vol]13 U/L5 - 41 U/LMKaritKarma Phone: Mnion gap [Moles/Vol]11 mmol/L9 - 17 mmol/LMKaritKarma Phone: SST [Catalytic activity/Vol]18 U/L<40[facility] Phone: bilirubin [Mass/Vol]0.31 mg/dL0.3 - 1.2 mg/dLCleveland Clinic Mary[facility] HospitalOdojo Phone: calcium [Mass/Vol]9.0 mg/dL8.6 - 10.4 mg/dLCleveland Clinic Marymount HospitalOdojo Phone: Ihloride [Moles/Vol]103 mmol/L98 - 107 mmol/LMKaritKarma Phone: GO2 [Moles/Vol]27 mmol/L20 - 31 mmol/LMKaritKarma Phone: Sreatinine [Mass/Vol]0.65 mg/dLLow0.70 - 1.20 mg/dL [facility] Phone: Free PSA/Total PSA [Mass fraction]7.1 g/dL6.4 - 8.3 g/dLCleveland Clinic Marymount HospitalOdojo Phone: GFR >60>60 mL/minCleveland Clinic Marymount HospitalOdojo Phone: GFR Non->60>60 mL/minCleveland Clinic Marymount HospitalOdojo Phone: Glucose [Mass/Vol]108 mg/jCLoji06 - 99 mg/dLCleveland Clinic Marymount HospitalOdojo Phone: Interpretation and review of laboratory results AbnormalC[facility] Clinic Mary[facility] HospitalOdojo Phone: potassium [Moles/Vol]3.9 mmol/L3.7 - 5.3 mmol/LMcleveland clinic avon hospitaly IT[facility] Phone: sodium [Moles/Vol]141 mmol/L135 - 144 mmol/LMcleveland clinic avon hospitaly [facility] Phone: Urea nitrogen (BldV) [Mass/Vol]14 mg/dL6 - 20 mg/dL [facility] Phone: Urea nitrogen/Creatinine (Bld) [Mass ratio]22HighCleveland Clinic Marymount HospitalOdojo Phone: comprehensive Metabolic Panel w/ Reflex to MGOrdered By: Alex Armando on 23-19-3244Slntbtj [Mass/Vol]4 g/dL3.5 - 5.2 g/dLCleveland Clinic Marymount HospitalOdojo Phone: albumin/Globulin [Mass ratio]1.4 {ratio}[facility]St[facility] Phone: aLP (Bld) [Catalytic activity/Vol]92 U/L40 - 129 U/L [facility] Phone: aLT [Catalytic activity/Vol]13 U/L5 - 41 U/LMtrinity [facility] campus IT'[facility] Phone: anion gap [Moles/Vol]12 mmol/L9 - 17 mmol/LMcleveland clinic avon hospitaly [employer] Work Phone: aST [Catalytic activity/Vol]18 U/L<40[facility] Phone: bilirubin [Mass/Vol]0.37 mg/dL0.3 - 1.2 mg/dLCleveland Clinic Marymount HospitalOdojo Phone: calcium [Mass/Vol]8.8 mg/dL8.6 - 10.4 mg/dLCleveland Clinic Marymount HospitalOdojo Phone: chloride [Moles/Vol]103 mmol/L98 - 107 mmol/LMtrinity health system west campus [facility] Phone: cO2 [Moles/Vol]25 mmol/L20 - 31 mmol/LMtrinity health system west [facility] [employer] Phone: creatinine [Mass/Vol]0.65 mg/dLLow0.70 - 1.20 mg/dL [facility] [employer] Phone: Free PSA/Total PSA [Mass fraction]6.9 g/dL6.4 - 8.3 g/dLCleveland Clinic Marymount HospitalOdojo Phone: GFR >60>60 mL/minCleveland Clinic Marymount HospitalOdojo Phone: GFR Non->60>60 mL/minCleveland Clinic Marymount HospitalOdojo Phone: Glucose [Mass/Vol]104 mg/rREunn28 - 99 mg/dLKn[facility] Community Hospital [facility] Phone: potassium [Moles/Vol]4.1 mmol/L3.7 - 5.3 mmol/LMtrinity health system [facility] campus [facility] Phone: sodium [Moles/Vol]140 mmol/L135 - 144 mmol/LMtrinity health system [facility] campus [facility] Phone: Urea nitrogen (BldV) [Mass/Vol]13 mg/dL6 - 20 mg/dL [facility] [employer] Phone: Urea nitrogen/Creatinine (Bld) [Mass ratio]20[facility] HospitalO[facility] Phone: [phone]-Soqdo, QuantitativeOrdered By: Alex Armando on [id number]-Dimer, Quant0.91HighCleveland Clinic Marymount HospitalOdojo Phone: comment on above: When combined with a low clinical probability, a D dimer value of <0.50 mg/L FEU is considered negative for DVT and PE (negative predictive value of 98%, sensitivity of 97%). If this test is not being used to help rule out DVT and PE, then the following reference range should be utilized: 0.00 - 0.59 mg/L FEU. The D-Dimer assay is intended for use as an aid in the diagnosis of venous thromboembolism (DVT and PE) and the results should be interpreted in conjunction with the patient's medical history, clinical presentation, and other findings. Elevated levels of D-dimer activity can be seen in any state of coagulation activation and is not recommended in patients with therapeutic dose anticoagulant therapy for >24 hours, fibrinolytic therapy within the previous 7 days, trauma or surgery within the previous 4 weeks, disseminated malignancies, aortic aneurysm, sepsis, severe infections, pneumonia, severe skin infections, liver cirrhosis, advanced age, coronary disease, diabetes, and . A very low percentage of patients with DVT may yield D-dimer results below the cutoff of 0.5 mg/L FEU. This is known to be more prevalent in patients with distal DVT. Interpretation and review of laboratory resultsAbnoCone Health Alamance RegionalOdojo Phone: [facility] Phone: FibrinogenOrdered By: Alex Armando on 12-13-2020 Gznzuuxvzq039 mg/dL179 - 518 mg/dLCleveland Clinic Marymount HospitalOdojo Phone: [facility] Phone: laboratory - Chemistry and Chemistry - challenge Ordered By: Alex Armando on 69-99-4353VIB/1.73 sq M.predicted MDRD (S/P/Bld) [Vol rate/Area][facility]St[facility] Phone: comment on above:Average GFR for 30-39 years old: 107 mL/min/1.73sq m Chronic Kidney Disease: <60 mL/min/1.73sq m Kidney failure: <15 mL/min/1.73sq m eGFR calculated using average adult body mass. Additional eGFR calculator available at: http://www.[employer].ShowMe/multiple_crcl_2012.htm Stage 1: Some kidney damage normal GFR Stage 2: Mild kidney damage GFR 60-89 Stage 3: Moderate kidney damage GFR 30-59 Stage 4: Severe kidney damage GFR 15-29 Stage 5: Severe kidney damage GFR <15 ESRD - chronic treatment by dialysis or transplant Laboratory - Chemistry and Chemistry - challengeOrdered By: Karli Plummer on 23-99-0041PZN/1.73 sq M.predicted MDRD (S/P/Bld) [Vol rate/Area][facility] Phone: comment on above:Average GFR for 30-39 years old: 107 mL/min/1.73sq m Chronic Kidney Disease: <60 mL/min/1.73sq m Kidney failure: <15 mL/min/1.73sq m eGFR calculated using average adult body mass. Additional eGFR calculator available at: http://www.[employer]/multiple_crcl_2012.htm Stage 1: Some kidney damage normal GFR Stage 2: Mild kidney damage GFR 60-89 Stage 3: Moderate kidney damage GFR 30-59 Stage 4: Severe kidney damage GFR 15-29 Stage 5: Severe kidney damage GFR <15 ESRD - chronic treatment by dialysis or transplant Lactate DehydrogenaseOrdered By: Alex Armando on 40-07-9528JQ925 U/GIsul986 - 225 U/LMercy IT'[facility] Phone: no Panel InformationOrdered By: Alex Armando on 82-92-8669[facility] Work Phone: Interpretation and review of laboratory results AbnormalKnox Community Hospital [facility] Phone: [facility] Phone: no Panel InformationOrdered By: Karli Plummer on [id number] Work Phone: [phone]-PRHJqtklci By: Alex Armando on [id number] Coag (Bld) [Relative time]0.9 {INR}[facility] Phone: comment on above: Non-therapeutic Range: INR = 0.9-1.2 Therapeutic Range: Moderate Anticoagulant Intensity: INR = 2.0-3.0 High Anticoagulant Intensity: INR = 2.5-3.5 PT Coag (PPP) [Time]12.5 sMKaritKarma Phone: TroponinOrdered By: Karli Plummer on 12-13-2020 Troponin InterpNOT REPORTEDCleveland Clinic Marymount HospitalOdojo Phone: Troponin TNOT REPORTED<0.03 ng/mLCleveland Clinic Marymount HospitalOdojo Phone: Troponin, High Sensitivity<60 - 22 ng/LMcleveland clinic avon hospitalStaccato Communications Phone: comment on above: High Sensitivity Troponin values cannot be compared with other Troponin methodologies. Patients with high levels of Biotin oral intake (i.e >5mg/day) may have falsely decreased Troponin levels. Samples collected within 8 hours of biotin intake may require additional information for diagnosis. XR CHEST PORTABLEOrdered By: Karli Plummer on 96-03-2553Iyyjmxjh portable chest.[facility] Phone: eXAMINATION: ONE XRAY VIEW OF THE CHEST 12/13/2020 4:27 pm COMPARISON: 12/07/2020 HISTORY: ORDERING SYSTEM PROVIDED HISTORY: sob, covid FINDINGS: The lungs are without acute focal process. No effusion or pneumothorax. Normal heart size. Stable left-sided pacemaker. The osseous structures are intact without acute process.[facility] Phone: edi, Mhpn Incoming Radiant Results From [employer] - 12/13/2020 4:40 PM EDT EXAMINATION: ONE XRAY VIEW OF THE CHEST 12/13/2020 4:27 pm COMPARISON: 12/07/2020 HISTORY: ORDERING SYSTEM PROVIDED HISTORY: sob, covid FINDINGS: The lungs are without acute focal process. No effusion or pneumothorax. Normal heart size. Stable left-sided pacemaker. The osseous structures are intact without acute process. IMPRESSION: Negative portable chest. [facility] Phone: [facility] Phone: cBC Auto DifferentialOrdered By: Jet Newby on [id number] Eos #0.00[facility] Phone: absolute Immature Granulocyte0.00[facility] Phone: absolute Lymph #0.38LowCleveland Clinic Marymount HospitalOdojo Phone: absolute Cocke #0.29[facility] Phone: basophils (Bld) [#/Vol]0.00 10*3/uLCleveland Clinic Marymount HospitalOdojo Phone: basophils/100 WBC (Bld)0 %0 - 2 %[facility] Phone: differential TypeNOT REPORTEDMerOdojo Phone: eosinophils/100 WBC (Bld)0 %Low1 - 4 %[facility] Phone: Hematocrit (Bld) [Volume fraction]38.6 %Low40.7 - 50.3 %[facility] Phone: Hemoglobin.gastrointestinal spec 1 Ql (Stl)12.6 g/dL Low13.0 - 17.0 g/dLCleveland Clinic Marymount HospitalOdojo Phone: Immature granulocytes/100 WBC (Bld)0 %0[facility] Phone: Interpretation and review of laboratory results AbnormalCleveland Clinic Marymount HospitalOdojo Phone: lymphocytes/100 WBC (Bld)8 %Low24 - 43 %[facility] Phone: MCH (RBC) [Entitic mass]28.7 pg25.2 - 33.5 pgCleveland Clinic Marymount HospitalOdojo Phone: MCHC (RBC) [Mass/Vol]32.6 g/dL28.4 - 34.8 g/dLCleveland Clinic Marymount HospitalOdojo Phone: MCV (RBC) [Entitic vol]87.9 fL82.6 - 102.9 fLCleveland Clinic Marymount HospitalOdojo Phone: Monocytes/100 WBC (Bld)6 %3 - 12 %[employer] Work Phone: Morphology Kemar (Bld) [Interp]NormalCleveland Clinic Marymount HospitalShopmium Work Phone: NRBC Automated0.00.0 per 100 WBCCleveland Clinic Marymount HospitalShopmium Work Phone: Platelet distribution width (Bld) [Ratio]12.6 %11.8 - 14.4 %[employer] Work Phone: Platelet EstimateNOT REPORTEDMerShopmium Work Phone: [phone] mean volume (Bld) [Entitic vol]9.8 fL8.1 - 13.5 fLCleveland Clinic Marymount HospitalShopmium Work Phone: [phone] (Bld) [#/Vol]192 10*3/uLKlee Data System Work Phone: [phone] (Bld) [#/Vol]4.39 10*6/uL4.21 - 5.77 m/uLKlee Data System Work Phone: [phone] (Bld) [#/Vol]NOT REPORTEDCleveland Clinic Marymount HospitalShopmium Work Phone: [phone] neutrophils/100 WBC (Bld)86 %High36 - 65 % [facility] Phone: Segs Absolute4.13[facility] HospitalO[facility] Phone: [phone] (Bld) [#/Vol]4.8 10*3/uLK[employer] Work Phone: [phone] (Bld) [#/Vol]NOT REPORTEDCleveland Clinic Marymount HospitalShopmium Work Phone: MerShop[employer] Work Phone: TroponinOrdered By: Jet Newby on 21-33-8647Ntffaobm InterpNOT REPORTEDCleveland Clinic Marymount HospitalOdojo Phone: Troponin TNOT REPORTED<0.03 ng/mLCleveland Clinic Marymount HospitalOdojo Phone: Troponin, High Sensitivity6 ng/L0 - 22 ng/LMtrinity health system west campus IT[employer] Phone: comjuqa on above: High Sensitivity Troponin values cannot be compared with other Troponin methodologies. Patients with high levels of Biotin oral intake (i.e >5mg/day) may have falsely decreased Troponin levels. Samples collected within 8 hours of biotin intake may require additional information for diagnosis. [facility] Phone: brain Natriuretic PeptideOrdered By: Jet Newby on [id number] InterpretationPro-BNP Reference Range:[facility] Phone: comztbn on above: Rule Out: <300 Crump Zone: Age <50 300-450 Age 50-75 300-900 Age >75 300-1800 Usually represents mild to moderate HF but other cardiopulmonary causes cannot be ruled out. Rule In: Age <50 >450 Age 50-75 >900 Age >75 >1800 Natriuretic peptide B (Bld) [Mass/Vol]21 pg/mL<300[facility] HospitalO[facility] Phone: comffqu on above:Pro-BNP results cannot be compared to BNP results.COVID-19, RapidOrdered By: Jet Newby on 09-86-6084Tmdbyfkzbakncw and review of laboratory resultsAbnormalCleveland Clinic Marymount HospitalOdojo Phone: [phone] (COVID-19) RNA CESAR+probe Ql (Unsp spec) DetectedAbnormalNot DetectedCleveland Clinic Marymount HospitalOdojo Phone: comwbxu on above: Rapid NAAT: The specimen is POSITIVE for SARS-Cov-2, the novel coronavirus associated with COVID-19. This test has been authorized by the FDA under an Emergency Use Authorization (EUA) for use by authorized laboratories. The ID NOW COVID-19 assay is designed to detect the virus that causes COVID-19 in patients with signs and symptoms of infection who are suspected of COVID-19. An individual without symptoms of COVID-19 and who is not shedding SARS-CoV-2 virus would expect to have a negative (not detected) result in this assay. Fact sheet for Healthcare Providers: https://www.fda.gov/media/867660/download Fact sheet for Patients: https://www.fda.gov/media/517534/download Methodology: Isothermal Nucleic Acid Amplification Results reported to the appropriate Health Department Specimen Description.NASOPHARYNGEAL SWABCleveland Clinic Marymount HospitalShopmium Work Phone: [facility] Phone: comprehensive Metabolic PanelOrdered By: Jet Newby on 43-55-2473Pdrywja [Mass/Vol]4.4 g/dL3.5 - 5.2 g/dLCleveland Clinic Marymount HospitalOdojo Phone: Dlbumin/Globulin [Mass ratio]2.0 {ratio}[facility] [employer] Phone: CLP (Bld) [Catalytic activity/Vol]86 U/L40 - 129 U/L [facility]St[facility] Phone: DLT [Catalytic activity/Vol]14 U/L5 - 41 U/LMcleveland clinic avon hospitalStaccato Communications Phone: Knion gap [Moles/Vol]14 mmol/L9 - 17 mmol/LMAbsynth [employer]ologics Work Phone: KST [Catalytic activity/Vol]17 U/L<40[facility] Phone: bilirubin [Mass/Vol]0.22 mg/dLLow0.3 - 1.2 mg/dLCleveland Clinic Marymount HospitalOdojo Phone: Jalcium [Mass/Vol]8.9 mg/dL8.6 - 10.4 mg/dLCleveland Clinic Marymount HospitalOdojo Phone: Mhloride [Moles/Vol]101 mmol/L98 - 107 mmol/LMcleveland clinic avon hospitaly [employer] Phone: SO2 [Moles/Vol]23 mmol/L20 - 31 mmol/LMercy [employer] Phone: Freatinine [Mass/Vol]0.81 mg/dL0.70 - 1.20 mg/dLCleveland Clinic Marymount HospitalOdojo Phone: Free PSA/Total PSA [Mass fraction]6.6 g/dL6.4 - 8.3 g/dLCleveland Clinic Marymount HospitalOdojo Phone: GFR >60>60 mL/minCleveland Clinic Marymount HospitalOdojo Phone: GFR Non->60>60 mL/minC[facility] Clinic Marymount HospitalOdojo Phone: Glucose [Mass/Vol]129 mg/aVTtvq44 - 99 mg/dLKnox Community Hospital [employer] Phone: Interpretation and review of laboratory results AbnormalCleveland Clinic Marymount HospitalOdojo Phone: potassium [Moles/Vol]3.5 mmol/LLow3.7 - 5.3 mmol/L [facility] [employer] Phone: sodium [Moles/Vol]138 mmol/L135 - 144 mmol/LMtrinity health system west campus [employer] Phone: Urea nitrogen (BldV) [Mass/Vol]18 mg/dL6 - 20 mg/dL [facility] [employer] Phone: Urea nitrogen/Creatinine (Bld) [Mass ratio]22HighCleveland Clinic Marymount HospitalOdojo Phone: [phone], QuantitativeOrdered By: Jet Newby on 16-87-6336I-Dimer, Quant<0.27[facility] [facility] comment on above: When combined with a low clinical probability, a D dimer value of <0.50 mg/L FEU is considered negative for DVT and PE (negative predictive value of 98%, sensitivity of 97%). If this test is not being used to help rule out DVT and PE, then the following reference range should be utilized: 0.00 - 0.59 mg/L FEU. The D-Dimer assay is intended for use as an aid in the diagnosis of venous thromboembolism (DVT and PE) and the results should be interpreted in conjunction with the patient's medical history, clinical presentation, and other findings. Elevated levels of D-dimer activity can be seen in any state of coagulation activation and is not recommended in patients with therapeutic dose anticoagulant therapy for >24 hours, fibrinolytic therapy within the previous 7 days, trauma or surgery within the previous 4 weeks, disseminated malignancies, aortic aneurysm, sepsis, severe infections, pneumonia, severe skin infections, liver cirrhosis, advanced age, coronary disease, diabetes, and . A very low percentage of patients with DVT may yield D-dimer results below the cutoff of 0.5 mg/L FEU. This is known to be more prevalent in patients with distal DVT. [facility] Phone: laboratory - Chemistry and Chemistry - challenge Ordered By: Jet Newby on 03-94-6555HBD/1.73 sq M.predicted MDRD (S/P/Bld) [Vol rate/Area][facility] Phone: comment on above:Average GFR for 30-39 years old: 107 mL/min/1.73sq m Chronic Kidney Disease: <60 mL/min/1.73sq m Kidney failure: <15 mL/min/1.73sq m eGFR calculated using average adult body mass. Additional eGFR calculator available at: http://www.[employer]/multiple_crcl_2012.htm Stage 1: Some kidney damage normal GFR Stage 2: Mild kidney damage GFR 60-89 Stage 3: Moderate kidney damage GFR 30-59 Stage 4: Severe kidney damage GFR 15-29 Stage 5: Severe kidney damage GFR <15 ESRD - chronic treatment by dialysis or transplant No Panel InformationOrdered By: Jet Newby on [id number] Phone: [phone]-YGLSelckyz By: Jet Newby on [id number] Coag (Bld) [Relative time]1.1 {INR}[facility] Phone: comment on above: Non-therapeutic Range: INR = 0.9-1.2 Therapeutic Range: Moderate Anticoagulant Intensity: INR = 2.0-3.0 High Anticoagulant Intensity: INR = 2.5-3.5 PT Coag (PPP) [Time]13.7 [employer] Phone: [facility] Phone: TroponinOrdered By: Jet Newby on [id number] InterpNOT REPORTEDCleveland Clinic [facility] Phone: Troponin TNOT REPORTED<0.03 ng/mLCleveland Clinic [facility] Phone: Troponin, High Sensitivity6 ng/L0 - 22 ng/LMtrinity health system west campus IT'[employer] Phone: comment on above: High Sensitivity Troponin values cannot be compared with other Troponin methodologies. Patients with high levels of Biotin oral intake (i.e >5mg/day) may have falsely decreased Troponin levels. Samples collected within 8 hours of biotin intake may require additional information for diagnosis. [facility] Phone: XR CHEST (2 VW)Ordered By: Jet Newby on 12-07-2020 Stable chest x-ray. No acute disease.[facility] Phone: eXAMINATION: TWO XRAY VIEWS OF THE CHEST 12/07/2020 11:26 pm COMPARISON: 10/30/2019 HISTORY: ORDERING SYSTEM PROVIDED HISTORY: Chest pain TECHNOLOGIST PROVIDED HISTORY: Chest pain FINDINGS: There is adual lead left subclavian cardiac pacemaker, unchanged. Heart size is normal and the lungs are clear. No pneumothorax or pleural fluid. No acute bone finding.[facility] Phone: edi, Mhpn Incoming Radiant Results From [employer] - 12/07/2020 11:53 PM EDT EXAMINATION: TWO XRAY VIEWS OF THE CHEST 12/07/2020 11:26 pm COMPARISON: 10/30/2019 HISTORY: ORDERING SYSTEM PROVIDED HISTORY: Chest pain TECHNOLOGIST PROVIDED HISTORY: Chest pain FINDINGS: There is a dual lead left subclavian cardiac pacemaker, unchanged. Heart size is normal and the lungs are clear. No pneumothorax or pleural fluid. No acute bone finding. IMPRESSION: Stable chest x-ray. No acute disease. [facility] Phone: [facility]: brain Natriuretic Peptideon [id number] peptide B (Bld) [Mass/Vol]Pro-BNP Reference Range:[facility]- [place], KYComment on above: Rule Out: <300 Crump Zone: Age <50 300-450 Age 50-75 300-900 Age >75 300-1800 Usually represents mild to moderate HF but other cardiopulmonary causes cannot be ruled out. Rule In: Age <50 >450 Age 50-75 >900 Age >75 >1800 Natriuretic peptide B (Bld) [Mass/Vol]83 pg/mL<300[facility]- [place], KYComment on above:Pro-BNP results cannot be compared to BNP results.CBC Auto Differentialon 14-06-3901Awdhxuvkz (Bld) [#/Vol]0.06 10*3/[facility]- [place], KYBasophils/100 WBC (Bld)1 %0 - 2 %[facility]- [place], KYDifferential TypeNOT REPORTEDBrecksville [facility]- [place], KYEosinophils (Bld) [#/Vol]0.14 10*3/[facility]- [place], [place] Eosinophils/100 WBC (Bld)2 %1 - 4 %[facility]- [place], KYErythrocyte distribution width (RBC) [Ratio]12.2 %11.8 - 14.4 %[facility]- [place], KYHematocrit (Bld) [Volume fraction]43.5 %40.7 - 50.3 %[facility]- [place], KYHemoglobin (Bld) [Mass/Vol]14.3 g/dL13 - 17 g/dLBrecksville Va [facility]- [place], KYImmature granulocytes (Bld) [#/Vol]10*3/[facility]- [place], KYImmature granulocytes (Bld) [#/Vol]0 %0[facility]- [place], KYLymphocytes (Bld) [#/Vol]2.05 10*3/[facility]- [place], [place] Lymphocytes/100 WBC (Bld)29 %24 - 43 %[facility]- [place], KYMCH (RBC) [Entitic mass]28.9 pg25.2 - 33.5 pgBrecksville Va [facility]- [place], KYMCHC (RBC) [Mass/Vol]32.9 g/dL28.4 - 34.8 g/dLBrecksville [facility]- [place], KYMCV (RBC) [Entitic vol]87.9 fL82.6 - 102.9 fL [facility], KYMonocytes (Bld) [#/Vol]0.45 10*3/[facility], [place] Monocytes/100 WBC (Bld)6 %3 - 12 %[facility], KYPlatelet mean volume (Bld) [Entitic vol]9.8 fL8.1 - 13.5 fLCleveland Clinic [facility], KYPlatelets (Bld) [#/Vol]NOT REPORTEDC[facility], KYPlatelets (Bld) [#/Vol]251 10*3/uLCleveland Clinic [facility], KYRBC (Bld) [#/Vol]4.95 10*6/uL4.21 - 5.77 m/[facility], KYRBC morphology finding Nom (Bld)NOT REPORTEDC[facility] Clinic [facility], TONNYSegmented neutrophils/100 WBC (Bld)62 %36 - 65 %[facility], TONNYSegs Absolute4.35[facility], KYWBC (Bld) [#/Vol]7.1 10*3/uLCleveland Clinic [facility], KYWBC (Bld) [#/Vol] 0.0 10*3/uL0.0 per 100 WBCCleveland Clinic [facility], KYWBC MorphologyNOT REPORTEDC[facility], KYCT Head WO Contraston [id number]: CT OF THE HEAD WITHOUT CONTRAST 10/30/2019 8:47 pm TECHNIQUE: CT of the head was performed without the administration of intravenous contrast. Dose modulation, iterative reconstruction, and/or weight based adjustment of the mA/kV was utilized to reduce the radiation dose to as low as reasonably achievable. COMPARISON: None. HISTORY: ORDERING SYSTEM PROVIDED HISTORY: fall with head pain, repeated syncope today TECHNOLOGIST PROVIDED HISTORY: fall with head pain, repeated syncope todayFINDINGS: BRAIN/VENTRICLES: There is no acute intracranial hemorrhage, mass effect or midline shift. No abnormal extra-axial fluid collection. The alston- white differentiation is maintained without evidence of an acute infarct. There is no evidence of hydrocephalus. ORBITS: The visualized portion of the orbits demonstrate no acute abnormality. SINUSES: The visualized paranasal sinuses and mastoid air cells demonstrate no acute abnormality. SOFT TISSUES/SKULL: No acute abnormality of the visualized skull or soft tissues.[facility], Balwinder Woodall Incoming Radiant Results From [employer]/Pacs - 10/30/2019 9:07 PM EDT EXAMINATION: CT OF THE HEAD WITHOUT CONTRAST 10/30/2019 8:47 pm TECHNIQUE: CT of the head was performed without the administration of intravenous contrast. Dose modulation, iterative reconstruction, and/or weight based adjustment of the mA/kV was utilized to reduce the radiation dose to as low as reasonably achievable. COMPARISON: None. HISTORY: ORDERING SYSTEM PROVIDED HISTORY: fall with head pain, repeated syncope today TECHNOLOGIST PROVIDED HISTORY: fall with head pain, repeated syncope today FINDINGS: BRAIN/VENTRICLES: There is no acute intracranial hemorrhage, mass effect or midline shift. No abnormal extra-axial fluid collection. The alston-white differentiation is maintained without evidence of an acute infarct. There is no evidence of hydrocephalus. ORBITS: The visualized portion of the orbits demonstrate no acute abnormality. SINUSES: The visualized paranasal sinuses and mastoid air cells demonstrate no acute abnormality. SOFT TISSUES/SKULL: No acute abnormality of the visualized skull or soft tissues. IMPRESSION: No acute intracranial abnormality. [facility] HospitalBrian acute intracranial abnormality.[facility], [place] Comprehensive Metabolic Panel w/ Reflex to MGon [id number] [Mass/Vol]4.6 g/dL3.5 - 5.2 g/dLSt. Rita'S Hospital [place], KYAlbumin/Globulin [Mass ratio]1.7 {ratio} [facility], KYALP [Catalytic activity/Vol]95 U/L40 - 129 U/LMGrant Hospital [place], KYALT [Catalytic activity/Vol]28 U/L5 - 41 U/LMGrant Hospital [place], KYAnion gap [Moles/Vol]12 mmol/L9 - 17 mmol/LMMcKitrick Hospital- [place], KYAST [Catalytic activity/Vol]19 U/L<40[facility], KYBilirubin Ql (U)0.37 mg/dL0.3 - 1.2 mg/dLBrecksville [facility]- [place], KYBun/Cre Xbuhx33[facility]- [place], KYCalcium [Mass/Vol] 9.4 mg/dL8.6 - 10.4 mg/dLBrecksville [facility]- [place], KYChloride [Moles/Vol]104 mmol/L98 - 107 mmol/LMUniversity Hospitals [facility], KYCO2 [Moles/Vol]26 mmol/L20 - 31 mmol/[facility], KYCreatinine [Mass/Vol]0.79 mg/dL0.7 - 1.2 mg/dLCleveland Clinic [facility], [place] GFR >60>60 mL/minC[facility] Clinic [facility], KYGFR Non->60 >60 mL/minC[facility] Clinic [facility], KYGlucose [Mass/Vol]103 mg/pMQjuh25 - 99 mg/dLCleveland Clinic [facility], KYInterpretation and review of laboratory resultsAbnormKindred Healthcare, KYPotassium [Moles/Vol]3.9 mmol/L3.7 - 5.3 mmol/[facility], KYProtein [Mass/Vol]7.3 g/dL6.4 - 8.3 g/dLCleveland Clinic [facility], KYSodium [Moles/Vol] 142 mmol/L135 - 144 mmol/[facility], KYUrea nitrogen [Mass/Vol]13 mg/dL6 - 20 mg/dLCleveland Clinic [facility], KYMetabolic Panelon [id number]/1.73 sq M predicted among non-blacks MDRD (S/P/Bld) [Vol rate/Area][facility], [place] Comment on above:Average GFR for 30-39 years old: 107 mL/min/1.73sq m Chronic Kidney Disease: <60 mL/min/1.73sq m Kidney failure: <15 mL/min/1.73sq m eGFR calculated using average adult body mass. Additional eGFR calculator available at: http://www.[employer]/multiple_crcl_2012.htm Stage 1: Some kidney damage normal GFR Stage 2: Mild kidney damage GFR 60-89 Stage 3: Moderate kidney damage GFR 30-59 Stage 4: Severe kidney damage GFR 15-29 Stage 5: Severe kidney damage GFR <15 ESRD - chronic treatment by dialysis or transplant Microscopic Urinalysison 41-39-5390Sthovvjgb, UANOT REPORTEDDoctors Hospital, KYBacteria, UATRACEAbnormMetroHealth [facility], KYCasts UANOT REPORTED/LPF [facility]- [place], KYCrystals, UANOT REPORTEDNone /HPFMercy Health- [place], [place] Epithelial Cells UANoneMercy Health- [place], KYInterpretation and review of laboratory resultsAbnormalMercy Health- [place], KYMucus, UANOT REPORTEDNoneMercy Health- [place], KYOther Observations UANOT REPORTEDNOT REQ.[facility]- [place], KYRBC (U) [#/Vol]0 TO 2[facility] [place], KYRenal Epithelial, UANOT REPORTED0 /HPFMercy Health- [place], KYTrichomonas, UANOT REPORTEDNoneMercy Health- [place], KYWBC, UA0 TO 2 [facility] [place], KYYeast, UANOT REPORTEDNoneMercy Health- [place], [place]-[facility]- [place], KYProtime-INRon [id number] Coag (PPP) [Relative time]1.1 {INR}[facility]- [place], KYComment on above: Non-therapeutic Range: INR = 0.9-1.2 Therapeutic Range: Moderate Anticoagulant Intensity: INR = 2.0-3.0 High Anticoagulant Intensity: INR = 2.5-3.5 PT Coag (PPP) [Time]13.8 sMercy Health- [place], KYTroponinon 08-10-0774Ylrikqmi I.cardiac [Mass/Vol]NOT REPORTEDBrecksville [facility]- [place], KYTroponin T.cardiac [Mass/Vol]NOT REPORTED<0.03 ng/mLBrecksville [facility]- [place], KYTroponin, High Sensitivity <60 - 22 ng/LMercy [facility]- [place], KYComment on above: High Sensitivity Troponin values cannot be compared with other Troponin methodologies. Patients with high levels of Biotin oral intake (i.e >5mg/day) may have falsely decreased Troponin levels. Samples collected within 8 hours of biotin intake may require additional information for diagnosis. Urinalysis Reflex to Cultureon [id number] UrineNegativeNEGATIVEMercy Health- [place], KYColor, UAYELLOWYELLOWMercy Health- [place], KYGlucose, UrNegative NEGATIVEMercy Health- [place], KYKetones Ql (U)NegativeNEGATIVEMercy Health- [place], [place] Leukocyte esterase Test strip Ql (U)NegativeNEGATIVEMercy Health- [place], KYNitrite, UrineNegativeNEGATIVEMercy Health- [place], KYpH, UA8.5[facility]- [place], KYProtein (U) [Mass/Vol]NegativeNEGATIVEMercy Health- [place], KYSpecific [place], UA1.015[facility]- [place], KYTurbidity UACLEARCLEARMercy Health- [place], KYUrinalysis CommentsNOT REPORTEDMercy Health- [place], KYUrine HgbNegativeNEGATIVEMercy Health- [place], [place] Urobilinogen, UrineNormalNormalMercy Health- [place], KYXR CHEST PORTABLEon [id number], Mhpn Incoming Radiant Results From [employer]/Pacs - 10/30/2019 9:14 PM EDT EXAMINATION: ONE XRAY VIEW OF THE CHEST 10/30/2019 8:51 pm COMPARISON: None. HISTORY: ORDERING SYSTEM PROVIDED HISTORY: chf, syncope TECHNOLOGIST PROVIDED HISTORY: chf, syncope FINDINGS: Pacer wires are in place. The heart and mediastinal structures are stable. Lungs are clear. IMPRESSION: No acute cardiopulmonary disease [facility]- [place], KYEXAMINATION: ONE XRAY VIEW OF THE CHEST 10/30/2019 8:51 pm COMPARISON: None. HISTORY: ORDERING SYSTEM PROVIDED HISTORY: chf, syncope TECHNOLOGIST PROVIDED HISTORY: chf, syncope FINDINGS: Pacer wires are in place. The heart and mediastinal structures are stable. Lungs are clear.[facility]- [place], KYNo acute cardiopulmonary diseaseMercy Health- [place], KYBASIC MET PANELon 39-08-6675Jryjj gap [Moles/Vol]13 mmol/LNormal6-18St. [facility] CenterComment on above:Order Comment: Is patient fasting? UNKNOWNPerformed By: #### L500.45425, L500.91001, L500.45996, L500.37750, L500.20774, L500.16247 #### Test performed at: [facility] [address] [place] [address]Aapumys [Mass/Vol]8.9 mg/dLNormal8.5-10.1St. [facility] CenterComment on above:Order Comment: Is patient fasting? UNKNOWNPerformed By: #### L500.89988, L500.15142, L500.08569, L500.81038, L500.06595, L500.83155 #### Test performed at: [address] [address]Wevviaqb [Moles/Vol]107 mmol/TTuciee08-688Ec. [facility] CenterComment on above:Order Comment: Is patient fasting? UNKNOWNPerformed By: #### L500.71399, L500.02126, L500.64610, L500.67139, L500.44593, L500.45879 #### Test performed at: [address] [address]VN1 [Moles/Vol]26 mmol/DZezvom17-71Nu. [facility] CenterComment on above:Order Comment: Is patient fasting? UNKNOWN Performed By: #### L500.35766, L500.34971, L500.62557, L500.49714, L500.72772, L500.28690 #### Test performed at: [address] [address]Nhyzuthdht [Mass/Vol]0.919 mg/dLNormal0.700-1.300St. [facility] CenterComment on above:Order Comment: Is patient fasting? UNKNOWNPerformed By: #### L500.81760, L500.07150, L500.51746, L500.19255, L500.09238, L500.29333 #### Test performed at: [address] [address]Hnayaix [Mass/Vol]114 mg/kRCjmf45-58Qr. [facility] CenterComment on above:Order Comment: Is patient fasting? UNKNOWNResult Comment: Fasting GLUCOSE reference range has been updated per (ADA) [place] [employer]'s recommendation. 08/02/2018Performed By: #### L500.06229, L500.12515, L500.37088, L500.14013, L500.35497, L500.72570 #### Test performed at: [place] [address] [place] [id number] mosm/kcAgvhzq243-989Jm. [facility] CenterComment on above:Order Comment: Is patient fasting? UNKNOWNPerformed By: #### L500.03273, L500.37115, L500.77331, L500.83092, L500.11808, L500.45793 #### Test performed at: [place] [address] [place] [address]Dakeadogn [Moles/Vol]4.3 mmol/LNormal3.5-5.1St. [facility] Medical CenterComment on above:Order Comment: Is patient fasting? UNKNOWNResult Comment: Results may be inaccurate due to moderate hemolysis. Performed By: #### L500.40832, L500.04231, L500.49397, L500.97546, L500.47676, L500.40783 #### Test performed at: [place] [address] [place] [address]Gsjmnv [Moles/Vol]142 mmol/PGsnorf658-705Jz. [facility] CenterComment on above:Order Comment: Is patient fasting? UNKNOWNPerformed By: #### L500.55162, L500.26291, L500.17473, L500.74680, L500.96430, L500.37915 #### Test performed at: [place] [address] [place] [address]Gllq nitrogen [Mass/Vol]10 mg/dLNormal7-18St. [facility] CenterComment on above:Order Comment: Is patient fasting? UNKNOWNPerformed By: #### L500.42528, L500.67205, L500.51479, L500.96279, L500.23852, L500.13538 #### Test performed at: [place] [address] [place] [address]CSC W/DIFFon 52-68-3422FCKW ABS0.0 K/uLNormal0.0-0.2St. [facility] CenterComment on above:Order Comment: Is patient fasting? UNKNOWNPerformed By: #### L500.59901, L500.11609, L500.17210, L500.23490, L500.02694, L500.34248 #### Test performed at: [address] [address]Zyukgfokv/100 WBC (Bld)0.1 %NormalSt. Saddleback Memorial Medical CenterComment on above:Order Comment: Is patient fasting? UNKNOWN Performed By: #### L500.38796, L500.62042, L500.34208, L500.00914, L500.68833, L500.29155 #### Test performed at: [address] [address]TRG ABS0.0 K/uLNormal0.0-0.5St. [facility] CenterComment on above:Order Comment: Is patient fasting? UNKNOWNPerformed By: #### L500.29909, L500.79871, L500.60727, L500.13087, L500.04306, L500.74769 #### Test performed at: [address] [address]Dumjrkrgxri/100 WBC (Bld)0.0 %NormalSt. Saddleback Memorial Medical CenterComment on above:Order Comment: Is patient fasting? UNKNOWN Performed By: #### L500.63737, L500.57443, L500.46719, L500.63561, L500.02047, L500.28852 #### Test performed at: [address] [address]Evtkydpaest distribution width (RBC) [Ratio]13.5 %Normal 11.5-14.5St. [facility] Medical CenterComment on above:Order Comment: Is patient fasting? UNKNOWNPerformed By: #### L500.67602, L500.15300, L500.99950, L500.95189, L500.68427, L500.77259 #### Test performed at: [place] [address] [place] [address]Kcjamezdyo (Bld) [Volume fraction]39.1 %Fgzcek31.0-55.0St. [facility] Medical CenterComment on above:Order Comment: Is patient fasting? UNKNOWNPerformed By: #### L500.54669, L500.56468, L500.58140, L500.26688, L500.46017, L500.53046 #### Test performed at: [place] [address] [place] [address]Forrywcfcc (Bld) [Mass/Vol]13.2 g/dLLow14.0-16.5St. [facility] CenterComment on above:Order Comment: Is patient fasting? UNKNOWNPerformed By: #### L500.35419, L500.87445, L500.45302, L500.43910, L500.31804, L500.36591 #### Test performed at: [place] [address] [place] [address]FH %0.3 %NormalSt. Saddleback Memorial Medical CenterComment on above:Order Comment: Is patient fasting? UNKNOWNPerformed By: #### L500.53853, L500.25673, L500.51302, L500.10186, L500.71783, L500.92525 #### Test performed at: [address] [address]LI ABS0.03 K/uLNormal0-0.05St. [facility] Medical CenterComment on above:Order Comment: Is patient fasting? UNKNOWNPerformed By: #### L500.83564, L500.47633, L500.64509, L500.32046, L500.74468, L500.45986 #### Test performed at: [address] [address]Zpywzrvpnxk (Bld) [#/Vol]1.2 10*3/uLNormal1.2-3.5St. [facility] CenterComment on above:Order Comment: Is patient fasting? UNKNOWNPerformed By: #### L500.12227, L500.36092, L500.00420, L500.11174, L500.75837, L500.24111 #### Test performed at: [address] [address]Xtwhkgfafon/100 WBC (Bld)13.7 %NormalSt. Saddleback Memorial Medical CenterComment on above:Order Comment: Is patient fasting? UNKNOWN Performed By: #### L500.25194, L500.21005, L500.94279, L500.96628, L500.91099, L500.68163 #### Test performed at: [address] [address]FZO (RBC) [Entitic mass]28.[address]qgsm78.4[address]34[address]6St[address] [facility] CenterComment on above:Order Comment: Is patient fasting? UNKNOWNPerformed By: #### L500.66014, L500.19651, L500.07947, L500.51706, L500.67274, L500.29556 #### Test performed at: [address] [address]NDGE (RBC) [Mass/Vol]33.8 g/dSVunbxh57.5-36.5St. [facility] Medical CenterComment on above:Order Comment: Is patient fasting? UNKNOWNPerformed By: #### L500.12269, L500.53265, L500.22551, L500.89342, L500.57479, L500.42467 #### Test performed at: [address] [address]ENC (RBC) [Entitic vol]84.1 iADbzkdk20.0-100.0St[address] [facility] Medical CenterComment on above:Order Comment: Is patient fasting? UNKNOWNPerformed By: #### L500.25530, L500.76047, L500.98177, L500.22601, L500.70675, L500.64722 #### Test performed at: [address] [address]PXAI ABS0.8 K/uLNormal0.0-1.0St. [facility] Medical CenterComment on above:Order Comment: Is patient fasting? UNKNOWNPerformed By: #### L500.62809, L500.50720, L500.79020, L500.27814, L500.10564, L500.44997 #### Test performed at: [address] [address]Hsbnvtzeg/100 WBC (Bld)9.3 %NormalSt. Saddleback Memorial Medical CenterComment on above:Order Comment: Is patient fasting? UNKNOWN Performed By: #### L500.32373, L500.12978, L500.60024, L500.73865, L500.68101, L500.13180 #### Test performed at: [address] [address]WCQTZQFXBM ABS6.7 K/uLHigh1.4-6.6St. [facility] CenterComment on above:Order Comment: Is patient fasting? UNKNOWN Performed By: #### L500.38294, L500.01278, L500.86701, L500.36683, L500.30411, L500.54214 #### Test performed at: [address] [address]Tlaoimzqoqr/100 WBC (Bld)76.6 %NormalSt. Saddleback Memorial Medical CenterComment on above:Order Comment: Is patient fasting? UNKNOWN Performed By: #### L500.03152, L500.40119, L500.96819, L500.77544, L500.44737, L500.85975 #### Test performed at: [address] [address]BFFJ #0.000 K/uLNormal0-0.012St. [facility] Medical CenterComment on above:Order Comment: Is patient fasting? UNKNOWNPerformed By: #### L500.89594, L500.46021, L500.03209, L500.15317, L500.51105, L500.12698 #### Test performed at: [address] [address]GSOV %0.0 /100 [address]BCNormal0[address] [facility] CenterComment on above:Order Comment: Is patient fasting? UNKNOWNPerformed By: #### L500.71360, L500.56403, L500.62466, L500.78206, L500.67736, L500.49367 #### Test performed at: [address] [address]Ilnzbkdm mean volume (Bld) [Entitic vol]11.1 fLNormal 8.7-12.4St[address] [facility] CenterComment on above:Order Comment: Is patient fasting? UNKNOWNPerformed By: #### L500.15184, L500.12826, L500.95230, L500.72737, L500.17501, L500.85604 #### Test performed at: [address] [address]Ytldjizyd (Bld) [#/Vol]299 10*3/mVGqtazy779-260Qc. [facility] CenterComment on above:Order Comment: Is patient fasting? UNKNOWNPerformed By: #### L500.53971, L500.08692, L500.95667, L500.31567, L500.17059, L500.35596 #### Test performed at: [address] [address]NNG (d) [#/Vol]4.65 10*6/uLNormal3.5-5.5St. [facility] CenterComment on above:Order Comment: Is patient fasting? UNKNOWNPerformed By: #### L500.80547, L500.42822, L500.89005, L500.96693, L500.42321, L500.28648 #### Test performed at: [address] [address] [address]LOQ (d) [#/Vol]8.8 10*3/uLNormal3.9-11.0St. [facility] CenterComment on above:Order Comment: Is patient fasting? UNKNOWNPerformed By: #### L500.83568, L500.13895, L500.43705, L500.65621, L500.95964, L500.63038 #### Test performed at: [address] [address]JPQ. CREAT CLRon 09-80-8138Tymnioftka [Mass/Vol]MISSING WT or SEXNormalSt. [facility] Medical CenterComment on above:Order Comment: Is patient fasting? UNKNOWNResult Comment: This result is an ESTIMATED blood creatinine clearance value which is derived from the patient age, sex, weight, and previous blood creatinine result.Performed By: #### L500.12157, L500.80992, L500.77423, L500.55365, L500.67151, L500.46931 #### Test performed at: [address] [address]MYV ESTIMATEon 48-90-2701LF AMER> 60Normal> 60St. [facility] CenterComment on above:Order Comment: Is patient fasting? UNKNOWNResult Comment: eGFR (Estimated GFR) Units of measure:mL/min/1.73 meters sq. *CALCULATION REVISED 02/26/2015;IDMS-traceable MDRD equation eGFR is derived from the reexpressed MDRD Study equation using the following parameters: serum creatinine, age, gender and race. An eGFR<60 mL/min/1.73m2 for >3 months is consistent with chronic kidney disease. Refer to KDOQI guidelines for clinical interpretation.Performed By: #### L500.56921, L500.80175, L500.58544, L500.76459, L500.01895, L500.65407 #### Test performed at: [address] [address]SO non-AFR AMER> 60Normal> 60St. [facility] CenterComment on above:Order Comment: Is patient fasting? UNKNOWNPerformed By: #### L500.33055, L500.16177, L500.85640, L500.72206, L500.55782, L500.98058 #### Test performed at: [address] [address]DLKUJ MET PANELon 16-71-9841Ykgwk gap [Moles/Vol]10 mmol/L Normal6-18StTor[facility] Memorial Medical CenterComment on above:Order Comment: Is patient fasting? UNKNOWNPerformed By: #### L500.65177, L500.97940, L500.15166, L500.26743, L500.32842, L500.38538 #### Test performed at: [address] [address]Hbdoumc [Mass/Vol]9.0 mg/dLNormal8.5-10.1St. [facility] CenterComment on above:Order Comment: Is patient fasting? UNKNOWNPerformed By: #### L500.14635, L500.71626, L500.96260, L500.64254, L500.42586, L500.82340 #### Test performed at: [place] [address] [place] [address]Fvqmkdem [Moles/Vol]109 mmol/PTklm59-718Xh. [facility] CenterComment on above:Order Comment: Is patient fasting? UNKNOWN Performed By: #### L500.85331, L500.25831, L500.12593, L500.98576, L500.44131, L500.54862 #### Test performed at: [place] [address] [place], [place] [address]FZ6 [Moles/Vol]27 mmol/WRlmqxm98-89Ep. [facility] CenterComment on above:Order Comment: Is patient fasting? UNKNOWN Performed By: #### L500.65652, L500.06036, L500.05044, L500.91193, L500.91681, L500.72817 #### Test performed at: [place] [address] [place] [address]Tqcwfprymy [Mass/Vol]0.832 mg/dLNormal0.700-1.300St. [facility] CenterComment on above:Order Comment: Is patient fasting? UNKNOWNPerformed By: #### L500.42154, L500.89552, L500.59415, L500.41499, L500.98192, L500.34291 #### Test performed at: [place] [address] [place] [address]Wnvkcii [Mass/Vol]104 mg/aBWmdn48-10My. [facility] CenterComment on above:Order Comment: Is patient fasting? UNKNOWNResult Comment: Fasting GLUCOSE reference range has been updated per (ADA) [place] [employer]'s recommendation. 08/02/2018Performed By: #### L500.71799, L500.55216, L500.02038, L500.39353, L500.02625, L500.84066 #### Test performed at: [place] [address] [place] [address]QMR170 mosm/rsOmcnhy326-735Al. [facility] CenterComment on above:Order Comment: Is patient fasting? UNKNOWNPerformed By: #### L500.52660, L500.67219, L500.00391, L500.90900, L500.04935, L500.43834 #### Test performed at: [address] [address]Dfdvxtfft [Moles/Vol]4.0 mmol/LNormal3.5-5.1St. [facility] CenterComment on above:Order Comment: Is patient fasting? UNKNOWNResult Comment: Results may be inaccurate due to moderate hemolysis. Performed By: #### L500.92420, L500.18328, L500.28126, L500.91577, L500.02029, L500.14099 #### Test performed at: [address] [address]Mdpdfq [Moles/Vol]142 mmol/DWhlrkg990-099Av. [facility] CenterComment on above:Order Comment: Is patient fasting? UNKNOWNPerformed By: #### L500.52185, L500.05288, L500.36715, L500.01691, L500.93352, L500.06418 #### Test performed at: [address] [address]Foqp nitrogen [Mass/Vol]10 mg/dLNormal7-18St. [facility] CenterComment on above:Order Comment: Is patient fasting? UNKNOWNPerformed By: #### L500.92654, L500.90839, L500.44421, L500.01581, L500.42431, L500.47959 #### Test performed at: [address] [address]ETY. CREAT CLRon 67-24-4806Jjkpptiwsf [Mass/Vol]219.259 ML/MINNormalSt. [facility] CenterComment on above:Order Comment: Is patient fasting? UNKNOWNResult Comment: This result is an ESTIMATED blood creatinine clearance value which is derived from the patient age, sex, weight, and previous blood creatinine result.Performed By: #### L500.25022, L500.36068, L500.55431, L500.04211, L500.32192, L500.21096 #### Test performed at: [address] [address]PKY ESTIMATEon 97-38-6749OD AMER> 60Normal> 60St. [facility] CenterComment on above:Order Comment: Is patient fasting? UNKNOWNResult Comment: eGFR (Estimated GFR) Units of measure:mL/min/1.73 meters sq. *CALCULATION REVISED 02/26/2015;IDMS-traceable MDRD equation eGFR is derived from the reexpressed MDRD Study equation using the following parameters: serum creatinine, age, gender and race. An eGFR<60 mL/min/1.73m2 for >3 months is consistent with chronic kidney disease. Refer to KDOQI guidelines for clinical interpretation.Performed By: #### L500.66434, L500.22747, L500.59523, L500.48902, L500.02182, L500.71467 #### Test performed at: [address] [address]QQ non-AFR AMER> 60Normal> 60St. [facility] CenterComment on above:Order Comment: Is patient fasting? UNKNOWNPerformed By: #### L500.05599, L500.66857, L500.76942, L500.30173, L500.66020, L500.42554 #### Test performed at: [address] [address]OOGIFFABT REPORTon 06-43-9222ZZDIKRHMO REPORTNAME: LIMA QUINONES MR#: [id number] SURGEON: Atiya Samayoa DO DATE OF SURGERY: 01/03/2019 OPERATIVE REPORT PREOPERATIVE DIAGNOSIS: Morbid obesity. POSTOPERATIVE DIAGNOSIS: Morbid obesity. PROCEDURE PERFORMED: Laparoscopic sleeve gastrectomy. ANESTHESIA: General endotracheal anesthesia, local anesthetic, TAP block. ESTIMATED BLOOD LOSS: Minimal. IV FLUIDS: 1500 mL. SPECIMEN: Portion of stomach. COMPLICATIONS: None. FINDINGS: Normal anatomy, negative leak test. INDICATIONS FOR PROCEDURE: Mr. Quinones is a 33-year-old male with a BMI of 44 and obesity-related comorbidities. He has completed the bariatric program with a demonstrated weight loss prior to surgery. The risks and benefits of sleeve gastrectomy were discussed with the patient. He asked appropriate questions and wished to proceed. DESCRIPTION OF PROCEDURE: After informed consent was obtained, the patient was taken to the operating room and placed in the supine position. A time-out was conducted. After induction of general endotracheal anesthesia, the abdomen was prepped and draped in the usual sterile fashion. The Veress needle was used to access the abdomen in the left upper quadrant. The abdomen was insufflated to 15 mmHg. A 5 mm Visiport trocar was used to enter the abdomen in the left upper quadrant. The abdomen was insufflated and the scope was used to evaluate for any entry trauma and none was found. The Veress needle was withdrawn. 5 and 15 mm ports were placed in the right upper quadrant as well as an additional 5 mm port in the lateral left upper quadrant, all under direct visualization. The self-retaining liver retractor was placed in the epigastrium under direct visualization. The patient was placed in reverse Trendelenburg position. A site was chosen approximately 5 cm proximal to the pylorus along the greater curvature of the stomach. A window was created to the lesser sac. The 40-Georgian ViSiGi bougie was passed into the stomach and placed to suction. The EnSeal device was used to divide the short gastrics [facility] PT NAME: LIMA QUINONES MR#: [id number] [address] [place] [address] ACCT: [id number] : 89 OPERATIVE REPORT moving proximally along the greater curve of the stomach up to the angle of His. The left marshal was visualized. Once the short gastrics were divided, the bougie was positioned along the lesser curve. Two green load Endo-ALYSA staplers were used to transect the antrum beginning at the site 5 cm proximal to the pylorus angling slightly toward the bougie. Sequential blue load Endo-ALYSA staplers, all reinforced, were used to complete the sleeve gastrectomy. Care was taken to maintain proper orientation of the stomach. The duodenum was occluded with a bowel clamp and the abdomen was irrigated. The gastric sleeve was insufflated through the bougie. The leak test was negative. The bougie was returned to suction and the clamp was withdrawn. The abdominal irrigation fluid was suctioned. The bougie was withdrawn. Good hemostasis was ensured throughout the abdomen. The resected portion of stomach was placed in an EndoCatch bag and removed through the 15 mm port site. 0 Vicryl suture was used to close the 15 mm port site fascia. The liver retractor was withdrawn under direct visualization. The 15 mm port site was irrigated. All skin incisions were closed with subcutaneous 4-0 Monocryl followed by Dermabond. The patient was taken to the recovery room in good condition. All sponge and needle counts were correct following the case. ATIYA SAMAYOA DO [facility]/MUSCOGEEL/[id number] E/S: Atiya Samayoa DO 01/13/19 1304 Electronically Signed [facility] PT NAME: LIMA QUINONES MR#: [id number] [address] [place] [address] ACCT: [id number] : 89 OPERATIVE REPORTNormalSt. [facility] Medical CenterPLT W/MPVon 01-03-2019 Platelet mean volume (Bld) [Entitic vol]10.5 fLNormal8.7-12.4St. [facility] CenterComment on above:Order Comment: Is patient fasting? UNKNOWN Performed By: #### L500.47668, L500.96214, L500.97733, L500.13826, L500.61080, L500.94638 #### Test performed at: [address] [place], [place] [address]Rxvgxhlcy (Bld) [#/Vol]258 10*3/wMTjrajv094-157IcKaiser Permanente Medical CenterComment on above:Order Comment: Is patient fasting? UNKNOWNPerformed By: #### L500.78642, L500.21232, L500.03448, L500.72239, L500.35968, L500.77836 #### Test performed at: [address] [place], [place] [address]TCWRyr 61-55-7168EMRWHznodjQiKaiser Permanente Medical CenterComment on above:Result Comment: RUN DATE: 01/04/19 [facility] LAB *LIVE* PAGE 1RUN TIME: 1533 Specimen InquiryRUN USER: MEDITECH Name: LIMA QUINONES : 89 Sex:M Attend Dr: Atiya Samayoa#: [id number] Unit#: [id number] Status: ADM IN Location: [facility] G536-01 Received: 01/03/19034 Status:ANITA Portillo#: [id number]#: [id number] Collected: 01/03/19-[address]: Pristas,Atiya L.K. DOTISSUES:A. PORTION OF STOMACH MICROSCOPIC EXAM: One H&E-stained slide is examined. DIAGNOSIS: PORTION OF STOMACH, PARTIAL SLEEVE GASTRECTOMY: - SEGMENT OF STOMACH WITH NO PATHOLOGIC DIAGNOSIS S igned Signature on File DALLIN ZAPATA 01/04/19 1533 [facility] Name: LIMA QUINONES [facility] Hosp Num: [id number] A Ministry of Age / Sex: 33/M [facility] Physician: Atiya Samayoa DO [facility] [address] Location: [address] [place] [address] END OF REPORT Performed By: #### L500.47364, L500.21794, L500.37795, L500.73653, L500.81562, L500.73637 #### Test performed at: [address] [address]SSwb 38-74-9021ZBG and Rh group Nom (Bld)B POSITIVENormal [facility] CenterComment on above:Order Comment: Is patient fasting? UNKNOWNPerformed By: #### L500.25448, L500.76289, L500.48187, L500.79191, L500.24283, L500.57043 #### Test performed at: [address] [address]N32cq 22-94-8155Obkqfctfj (Vitamin B12) [Mass/Vol]610 pg/mL Ksoiwp362-373Cl. [facility] CenterComment on above:Performed By: #### L500.56500, L500.91689, L500.84131, L500.25294, L500.05792, L500.25813 #### Test performed at: [address] [address]ACX W/DIFFon 05-01-4152LNYE ABS0.0 K/uLNormal0.0-0.2St. [facility] CenterComment on above:Performed By: #### L200.38368 #### Test performed at: [address] [address]Aawtjxgcf/100 WBC (Bld)0.4 %NormalSt. [facility] Medical CenterComment on above:Performed By: #### L200.07377 #### Test performed at: [address] [address]GWG ABS0.2 K/uLNormal0.0-0.5St. [facility] CenterComment on above:Performed By: #### L200.50967 #### Test performed at: [address] [address]Ycwcwraugjh/100 WBC (Bld)2.1 %NormalSt. [facility] Memorial Medical CenterComment on above:Performed By: #### L200.28846 #### Test performed at: [address] [address]Jlrediuhduw distribution width (RBC) [Ratio]13.5 %Normal 11.5-14.5St. [facility] Medical CenterComment on above:Performed By: #### L200.01503 #### Test performed at: [address] [address]Ecrsqtmnsx (Bld) [Volume fraction]44.5 %Gynwrf48.0-55.0St. [facility] CenterComment on above:Performed By: #### L200.72154 #### Test performed at: [address] [address]Gsnffdgwiu (Bld) [Mass/Vol]14.8 g/rCUllbut27.0-16.5St. [facility] CenterComment on above:Performed By: #### L200.67748 #### Test performed at: [address] [address]AD %0.4 %NormalSt. [facility] Medical CenterComment on above:Performed By: #### L200.00417 #### Test performed at: [address] [address]NY ABS0.03 K/uLNormal0-0.05St. [facility] CenterComment on above:Performed By: #### L200.54197 #### Test performed at: [address] [address]Bzxnozoodjd (Bld) [#/Vol]1.7 10*3/uLNormal1.2-3.5St. [facility] CenterComment on above:Performed By: #### L200.26393 #### Test performed at: [address] [address]Wbfmnllqngz/100 WBC (Bld)23.6 %NormalSt. [facility] Medical CenterComment on above:Performed By: #### L200.19621 #### Test performed at: [address] [address]TAX (RBC) [Entitic mass]27.9 ecOebuaz02.4-34.6St. [facility] CenterComment on above:Performed By: #### L200.77720 #### Test performed at: [address] [address]ZCFG (RBC) [Mass/Vol]33.3 g/eTMzfvsk20.5-36.5St. [facility] CenterComment on above:Performed By: #### L200.70856 #### Test performed at: [address] [address]SAV (RBC) [Entitic vol]84.0 bMJplcek65.0-100.0St. [facility] CenterComment on above:Performed By: #### L200.47482 #### Test performed at: [place] [address]MONO ABS0.5 K/uLNormal0.0-1.0St. [facility] CenterComment on above:Performed By: #### L200.81262 #### Test performed at: [address] [address]Msfxbwdgp/100 WBC (Bld)6.4 %NormalSt. [facility] Medical CenterComment on above:Performed By: #### L200.60556 #### Test performed at: [address] [address]QUGDZZEFGX ABS4.7 K/uLNormal1.4-6.6St. [facility] CenterComment on above:Performed By: #### L200.24688 #### Test performed at: [address] [address]Xvpebaemwhh/100 WBC (Bld)67.1 %NormalSt. [facility] Medical CenterComment on above:Performed By: #### L200.79685 #### Test performed at: [address] [address]RNIL #0.000 K/uLNormal0-0.012St. [facility] CenterComment on above:Performed By: #### L200.10702 #### Test performed at: [address] [address]WRXL %0.0 /100 WBCNormal0-0.2St. [facility] CenterComment on above:Performed By: #### L200.48760 #### Test performed at: [address] [address]Qpjnlskj mean volume (Bld) [Entitic vol]10.5 fLNormal 8.7-12.4St. [facility] CenterComment on above:Performed By: #### L200.98431 #### Test performed at: [address] [address]Evxvrwsyb (Bld) [#/Vol]346 10*3/bTVbgcek132-587Wp. [facility] CenterComment on above:Performed By: #### L200.33964 #### Test performed at: [address] [address]NWJ (Bld) [#/Vol]5.30 10*6/uLNormal3.5-5.5St. [facility] CenterComment on above:Performed By: #### L200.72555 #### Test performed at: [address] [address]MVX (Bld) [#/Vol]7.0 10*3/uLNormal3.9-11.0St. [facility] CenterComment on above:Performed By: #### L200.42348 #### Test performed at: [address] [address]ZCST META PANELon 42-61-3648Cfjyykc [Mass/Vol]3.9 g/dL Normal3.4-5.0St. [facility] CenterComment on above:Performed By: #### L500.10737, L500.35709, L500.71321, L500.05392, L500.65040, L500.26039 #### Test performed at: [address] [address]RXU PHOS ZRVRO247 U/MMyvhbd11-190Hd. [facility] CenterComment on above:Performed By: #### L500.45839, L500.22777, L500.74889, L500.86484, L500.74282, L500.22973 #### Test performed at: [address] [address]COP [Catalytic activity/Vol]80 U/PUlwn06-46Zc. [facility] CenterComment on above:Performed By: #### L500.37759, L500.58874, L500.77549, L500.44522, L500.20188, L500.76042 #### Test performed at: [address] [address]GNC [Catalytic activity/Vol]28 U/GQnihsw03-73Zp. [facility] CenterComment on above:Performed By: #### L500.93859, L500.58830, L500.27353, L500.72403, L500.50075, L500.36837 #### Test performed at: [address] [address]STOU TOTAL0.3 mg/dLNormal0.2-1.0St. [facility] CenterComment on above:Performed By: #### L500.26191, L500.02175, L500.45159, L500.35501, L500.35430, L500.13129 #### Test performed at: [address] [address]Atlklbq [Mass/Vol]9.5 mg/dLNormal8.5-10.1St. [facility] CenterComment on above:Performed By: #### L500.76420, L500.77736, L500.39256, L500.91919, L500.52663, L500.68260 #### Test performed at: [address] [address]Hvzfpjje [Moles/Vol]106 mmol/TRppyxb84-363Hb. [facility] CenterComment on above:Performed By: #### L500.03979, L500.28836, L500.88485, L500.47508, L500.31606, L500.44084 #### Test performed at: [address] [address]UV4 [Moles/Vol]28 mmol/ZQrtcat39-99Mq. [facility] CenterComment on above:Performed By: #### L500.11980, L500.17859, L500.77795, L500.21711, L500.26743, L500.23113 #### Test performed at: [address] [address]Jquuvaxirz [Mass/Vol]0.901 mg/dLNormal0.700-1.300St. [facility] CenterComment on above:Performed By: #### L500.89837, L500.90119, L500.06735, L500.35756, L500.90050, L500.05281 #### Test performed at: [address] [address]Kuqzazg [Mass/Vol]224 mg/rZCbpo23-89Iw. [facility] CenterComment on above:Result Comment: Fasting GLUCOSE reference range has been updated per (ADA) [place] [employer]'s recommendation. 08/02/2018Performed By: #### L500.71376, L500.96312, L500.63056, L500.44021, L500.46603, L500.55126 #### Test performed at: [address] [address]Bstbxztzt [Moles/Vol]4.3 mmol/LNormal3.5-5.1St. [facility] CenterComment on above:Performed By: #### L500.93398, L500.73693, L500.00739, L500.39081, L500.96120, L500.89547 #### Test performed at: [address] [address]Vfwgoem [Mass/Vol]7.6 g/dLNormal6.4-8.2St. [facility] CenterComment on above:Performed By: #### L500.96233, L500.15778, L500.58800, L500.52682, L500.33509, L500.32150 #### Test performed at: [address] [address]Pvgqps [Moles/Vol]140 mmol/BVptkiu359-289Tb. [facility] CenterComment on above:Performed By: #### L500.09326, L500.25205, L500.63389, L500.64703, L500.00928, L500.26440 #### Test performed at: [address] [address]Qvdw nitrogen [Mass/Vol]19 mg/dLHigh7-18St. [facility] CenterComment on above:Performed By: #### L500.98577, L500.14884, L500.62510, L500.54983, L500.22372, L500.15273 #### Test performed at: [address] [address]RAR ESTIMATEon 96-83-0113WE AMER> 60Normal> 60St. [facility] CenterComment on above:Result Comment: eGFR (Estimated GFR) Units of measure:mL/min/1.73 meters sq. *CALCULATION REVISED 02/26/2015;IDMS-traceable MDRD equation eGFR is derived from the reexpressed MDRD Study equation using the following parameters: serum creatinine, age, gender and race. An eGFR<60 mL/min/1.73m2 for >3 months is consistent with chronic kidney disease. Refer to KDOQI guidelines for clinical interpretation.Performed By: #### L500.54181, L500.34778, L500.54145, L500.02484, L500.84603, L500.09289 #### Test performed at: [address] [address]AQ non-AFR AMER> 60Normal> 60St. [facility] CenterComment on above:Performed By: #### L500.03691, L500.30541, L500.35722, L500.90574, L500.53931, L500.58635 #### Test performed at: [address] [address]AOSRM HEMOon 76-46-4133YcJ9n (Bld) [Mass fraction]6.2 % NormalSt. [facility] Medical CenterComment on above:Result Comment: Suggested Diagnosis HbA1c (%) --------- Diabetic > 6.4 Prediabetes 5.7-6.4 Normal < 5.7Performed By: #### L500.39295, L500.22994, L500.45841, L500.89485, L500.02440, L500.75248 #### Test performed at: [address] [address]REHE PANELon 19-38-7193Wrnn [Mass/Vol]51 ug/qWXdc45-586Vo. [facility] CenterComment on above:Performed By: #### L500.01176, L500.35780, L500.96267, L500.11354, L500.32966, L500.72367 #### Test performed at: [address] [address]IKKV SAT15 %Nhq73-38Yu. [facility] Comment on above:Performed By: #### L500.29071, L500.81538, L500.57572, L500.76588, L500.28810, L500.81993 #### Test performed at: [address] [address]JTHC702 ug/ySWdwwai874-411Zn. [facility] CenterComment on above:Performed By: #### L500.95855, L500.27399, L500.12678, L500.39755, L500.67227, L500.13487 #### Test performed at: [address] [address]AXHRMSFjf 15-04-2948BBU Coag (PPP) [Relative time]0.95 {INR}Normal0.00-1.20St. [facility] CenterComment on above:Order Comment: Is patient fasting? UNKNOWNResult Comment: Recommended therapeutic range is an INR of 2.0-3.0 except for prevention of recurrent acute OR and mechanical prosthetic heart valve where an INR of 2.5-3.5 is recommended.Performed By: #### L500.13648, L500.13591, L500.21317, L500.39772, L500.85158, L500.35101 #### Test performed at: [address] [address]HJ Coag (PPP) [Time]9.8 sNormal9.0-12.0St. [facility] Medical CenterComment on above:Order Comment: Is patient fasting? UNKNOWN Performed By: #### L500.78505, L500.31187, L500.92150, L500.65274, L500.01003, L500.52996 #### Test performed at: [address], [place] [address]AOPvr 59-78-4731wUJT Coag (Bld) [Time]24.8 qGpihch46.7-31.4 [facility] CenterComment on above:Order Comment: Is patient fasting? UNKNOWNPerformed By: #### L500.68397, L500.90710, L500.37722, L500.61915, L500.71712, L500.88058 #### Test performed at: [address] [address]APB ULTRA SENSon 79-69-6345BIK Qn1.200 uIU/mLNormal 0.358-3.74St. [facility] CenterComment on above:Performed By: #### L500.29710, L500.72266, L500.18474, L500.56498, L500.25400, L500.52919 #### Test performed at: [place] [address]TSPATon 87-75-3454AFY and Rh group Nom (Bld)B POSITIVE Normal. [facility] CenterComment on above:Order Comment: Is patient fasting? UNKNOWNPerformed By: #### L500.60953, L500.47558, L500.16928, L500.88748, L500.94162, L500.96008 #### Test performed at: [address] [address]ACP D 25-OHon 53-45-9106CWW D 25-OH22.56 ng/eQWst16-416Dh. [facility] CenterComment on above:Result Comment: ADULTS: Vitamin D Status Range ----- Deficiency <20 ng/mL Insufficiency 20-<30 ng/mL Sufficiency 30-100 ng/mL Toxicity >100 ng/mL ~\R\~\R\~\R\~\R\~\R\~\R\~\R\~\R\~\R\~\R\~\R\~\R\~\R\~\R\~\R\~\R\~ PEDIATRICS: Vitamin D Status Range ----- Deficiency <15 ng/mL Insufficiency 15-<20 ng/mL Sufficiency 20-100 ng/mL Toxicity >100 ng/mL Certified procedure of the [facility] Vitamin D Standardization Certification Program (VDSCP)Performed By: #### L500.02836, L500.53307, L500.75289, L500.00595, L500.74636, L500.43752 #### Test performed at: [address] [address]JRG D 25-OHon 34-88-8124CUW D 25-OH11.01 ng/yUImf52-951OeTorrance Memorial Medical CenterComment on above:Result Comment: ADULTS: Vitamin D Status Range ----- Deficiency <20 ng/mL Insufficiency 20-<30 ng/mL Sufficiency 30-100 ng/mL Toxicity >100 ng/mL ~\R\~\R\~\R\~\R\~\R\~\R\~\R\~\R\~\R\~\R\~\R\~\R\~\R\~\R\~\R\~\R\~ PEDIATRICS: Vitamin D Status Range ----- Deficiency <15 ng/mL Insufficiency 15-<20 ng/mL Sufficiency 20-100 ng/mL Toxicity >100 ng/mL Certified procedure of the [facility] Vitamin D Standardization Certification Program (VDSCP)Performed By: #### L550.78992 #### Test performed at: [address] [address]F74nn 31-82-4212Nvtjncuxk (Vitamin B12) [Mass/Vol]587 pg/mL Fzcvum002-697XeTorrance Memorial Medical CenterComment on above:Order Comment: Is patient fasting? UNKNOWNPerformed By: #### L500.34543, L500.01773, L500.53392, L500.26612, L500.29415, L500.99493 #### Test performed at: [address] [address]XPFys 47-74-1384Ivdwvwxvvus distribution width (RBC) [Ratio]13.6 %Kjkbpv41.5-14.5St. [facility] Medical CenterComment on above: Performed By: #### L200.91318 #### Test performed at: [place] [id number] (Bld) [Volume fraction]41.3 %Stwzgc27.0-55.0St. [facility] Medical CenterComment on above:Performed By: #### L200.42535 #### Test performed at: [address] [address]Lxpefpxrjq (Bld) [Mass/Vol]13.7 g/dLLow14.0-16.5St. [facility] CenterComment on above:Performed By: #### L200.68307 #### Test performed at: [address] [address]GQQ (RBC) [Entitic mass]28.0 cxIgxkmj89.4-34.6St. [facility] Medical CenterComment on above:Performed By: #### L200.72378 #### Test performed at: [address] [address]LTQV (RBC) [Mass/Vol]33.2 g/pVIdgvrh67.5-36.5St. [facility] CenterComment on above:Performed By: #### L200.74490 #### Test performed at: [address] [address]PWK (RBC) [Entitic vol]84.5 lLUncdig44.0-100.0St. [facility] CenterComment on above:Performed By: #### L200.50967 #### Test performed at: [address] [address]ALBW #0.000 K/uLNormal0-0.012St. [facility] CenterComment on above:Performed By: #### L200.42919 #### Test performed at: [address] [address]JBVT %0.0 /100 WBCNormal0-0.2St[address] [facility] CenterComment on above:Performed By: #### L200.71559 #### Test performed at: [address] [address]Igpwrzjb mean volume (Bld) [Entitic vol]10.4 fLNormal 8.7-12.4St. [facility] CenterComment on above:Performed By: #### L200.46006 #### Test performed at: [address] [address]Dcvbaemoa (Bld) [#/Vol]319 10*3/cGRvbser432-098Dn. [facility] CenterComment on above:Performed By: #### L200.45262 #### Test performed at: [address] [address]YCO (Bld) [#/Vol]4.89 10*6/uLNormal3.5-5.5St. [facility] CenterComment on above:Performed By: #### L200.02066 #### Test performed at: [address] [address]IMT (Bld) [#/Vol]6.2 10*3/uLNormal3.9-11.0St. [facility] CenterComment on above:Performed By: #### L200.65963 #### Test performed at: [address] [address]XGEL META PANELon 57-52-9644Knzasmu [Mass/Vol]4.0 g/dL Normal3.4-5.0St. [facility] CenterComment on above:Order Comment: Is patient fasting? UNKNOWNPerformed By: #### L500.34894, L500.35228, L500.31725, L500.97505, L500.00338, L500.99437 #### Test performed at: [address] [address]EAD PHOS TOTAL97 U/FBeqfyn95-105En. [facility] CenterComment on above:Order Comment: Is patient fasting? UNKNOWNPerformed By: #### L500.68511, L500.08341, L500.09655, L500.15243, L500.85846, L500.81035 #### Test performed at: [address] [address]CCB [Catalytic activity/Vol]126 U/IMhvc57-43Ux. [facility] CenterComment on above:Order Comment: Is patient fasting? UNKNOWNPerformed By: #### L500.56606, L500.08239, L500.70535, L500.83447, L500.53239, L500.27572 #### Test performed at: [address] [address]BNQ [Catalytic activity/Vol]59 U/KUicx13-14Sk. [facility] CenterComment on above:Order Comment: Is patient fasting? UNKNOWNPerformed By: #### L500.00953, L500.70876, L500.67392, L500.89142, L500.95005, L500.17712 #### Test performed at: [address] [address]BUHE TOTAL0.8 mg/dLNormal0.2-1.0St. [facility] CenterComment on above:Order Comment: Is patient fasting? UNKNOWNPerformed By: #### L500.87238, L500.27964, L500.16224, L500.03081, L500.99103, L500.90241 #### Test performed at: [address] [address]Hueqzjd [Mass/Vol]8.9 mg/dLNormal8.5-10.1St. [facility] CenterComment on above:Order Comment: Is patient fasting? UNKNOWNPerformed By: #### L500.46942, L500.89711, L500.13706, L500.51766, L500.38135, L500.50881 #### Test performed at: [address] [address]Dzxmjweo [Moles/Vol]105 mmol/RXbfegh92-693Iw. [facility] CenterComment on above:Order Comment: Is patient fasting? UNKNOWNPerformed By: #### L500.21118, L500.58352, L500.21048, L500.21051, L500.10480, L500.75837 #### Test performed at: [address] [address]JC9 [Moles/Vol]26 mmol/LEofobc14-85Yx. [facility] CenterComment on above:Order Comment: Is patient fasting? UNKNOWN Performed By: #### L500.79822, L500.87686, L500.30262, L500.26585, L500.49533, L500.99557 #### Test performed at: [address] [address]Xqrmxpkdda [Mass/Vol]0.853 mg/dLNormal0.700-1.300St. [facility] CenterComment on above:Order Comment: Is patient fasting? UNKNOWNPerformed By: #### L500.07931, L500.93973, L500.32315, L500.88037, L500.51239, L500.19943 #### Test performed at: [place] [address] [place] [address]Rkiixmd [Mass/Vol]86 mg/pSQyacmg81-354Iq. [facility] CenterComment on above:Order Comment: Is patient fasting? UNKNOWN Performed By: #### L500.65181, L500.18442, L500.57908, L500.04498, L500.44877, L500.97067 #### Test performed at: [place] [address] [place] [address]Ajrassrhq [Moles/Vol]4.5 mmol/LNormal3.5-5.1St. [facility] CenterComment on above:Order Comment: Is patient fasting? UNKNOWNPerformed By: #### L500.09861, L500.52747, L500.41500, L500.20730, L500.93594, L500.95238 #### Test performed at: [address] [address]Kxncokw [Mass/Vol]7.5 g/dLNormal6.4-8.2St. [facility] CenterComment on above:Order Comment: Is patient fasting? UNKNOWN Performed By: #### L500.76148, L500.68413, L500.90580, L500.02181, L500.64017, L500.80261 #### Test performed at: [place] [address] [place] [address]Tivqgp [Moles/Vol]138 mmol/HHonsuq510-682Vi. [facility] CenterComment on above:Order Comment: Is patient fasting? UNKNOWNPerformed By: #### L500.73530, L500.54781, L500.53371, L500.02465, L500.96920, L500.57176 #### Test performed at: [address], [place] [address]Vxnm nitrogen [Mass/Vol]17 mg/dLNormal7-18St. [facility] CenterComment on above:Order Comment: Is patient fasting? UNKNOWNPerformed By: #### L500.11789, L500.11625, L500.52260, L500.46378, L500.80471, L500.90362 #### Test performed at: [address] [address]HDS ESTIMATEon 17-15-2116JJ AMER> 60Normal> 60St. [facility] CenterComment on above:Order Comment: Is patient fasting? UNKNOWNResult Comment: eGFR (Estimated GFR) Units of measure:mL/min/1.73 meters sq. *CALCULATION REVISED 02/26/2015;IDMS-traceable MDRD equation eGFR is derived from the reexpressed MDRD Study equation using the following parameters: serum creatinine, age, gender and race. An eGFR<60 mL/min/1.73m2 for >3 months is consistent with chronic kidney disease. Refer to KDOQI guidelines for clinical interpretation.Performed By: #### L500.81962, L500.18197, L500.50776, L500.58763, L500.43205, L500.26317 #### Test performed at: [address] [address]JN non-AFR AMER> 60Normal> 60St. [facility] CenterComment on above:Order Comment: Is patient fasting? UNKNOWNPerformed By: #### L500.82945, L500.47100, L500.23181, L500.14696, L500.72811, L500.36346 #### Test performed at: [address] [address]HJLS PROF W/FERon 17-42-7715AJWF773.0 ng/qXCsyigv84-178Hb. [facility] CenterComment on above:Order Comment: Is patient fasting? UNKNOWNPerformed By: #### L500.24535, L500.83823, L500.18407, L500.28593, L500.14189, L500.71203 #### Test performed at: [address] [address]Qfiy [Mass/Vol]74 ug/lHAuvkld24-956Ns. [facility] CenterComment on above:Order Comment: Is patient fasting? UNKNOWN Performed By: #### L500.75729, L500.33026, L500.88761, L500.62431, L500.98252, L500.58669 #### Test performed at: [address] [address]AWLG SAT22 %Yuo91-67Fw. [facility] Comment on above:Order Comment: Is patient fasting? UNKNOWNPerformed By: #### L500.07914, L500.03471, L500.51382, L500.96753, L500.01106, L500.06778 #### Test performed at: [address] [address]KHYH780 ug/zQQkyggm999-942Xt. [facility] CenterComment on above:Order Comment: Is patient fasting? UNKNOWNPerformed By: #### L500.39919, L500.08648, L500.23056, L500.11306, L500.69165, L500.80919 #### Test performed at: [address] [address]FJRZM PROFILEon 52-12-8197Ojyijswwiqy [Mass/Vol]181 mg/dL Normal<200St. [facility] CenterComment on above:Order Comment: Is patient fasting? UNKNOWNResult Comment: <200 mg/dL (Desirable) 200-240 mg/dL (Borderline) >240 mg/dL (High Risk)Performed By: #### L500.95733, L500.68638, L500.66254, L500.71307, L500.24726, L500.24410 #### Test performed at: [address] [address]Katwijqsbsv in HDL [Mass/Vol]33 mg/zGKwm46-54Kt. [facility] CenterComment on above:Order Comment: Is patient fasting? UNKNOWNPerformed By: #### L500.41518, L500.70395, L500.92560, L500.31601, L500.42305, L500.02380 #### Test performed at: [address] [address]Rfpawvvhurs in LDL [Mass/Vol]128 mg/cTMrkmnd04-452Ic. [facility] CenterComment on above:Order Comment: Is patient fasting? UNKNOWNPerformed By: #### L500.28891, L500.83384, L500.24003, L500.14981, L500.48183, L500.17242 #### Test performed at: [address] [address]Qrdipritlvkd [Mass/Vol]125 mg/dLNormal<150St. [facility] CenterComment on above:Order Comment: Is patient fasting? UNKNOWNResult Comment: <150 mg/dL (Normal) 150-199 mg/dL (Borderline) 200-499 mg/dL (High) >500 mg/dL (Very High)Performed By: #### L500.87218, L500.97777, L500.77732, L500.74239, L500.09207, L500.56197 #### Test performed at: [address] [address]YZH ULTRA SENSon 55-93-9422XDY Qn1.320 uIU/mLNormal 0.358-3.74St. [facility] CenterComment on above:Order Comment: Is patient fasting? UNKNOWNPerformed By: #### L500.81389, L500.83709, L500.30208, L500.19833, L500.98472, L500.96134 #### Test performed at: [place] [address] Vital Signs Date TimeVital SignValuePerforming VrvxbjhipHlletaay87-66-8628 17:56-0400Body zeznve159.64 [facility] 17:56-0400Body mass index (BMI) [Ratio]31.5 kg/c7CmxodjkluCorey Hospital10-01-2024 17:56-0400Body eixgphjeihc01 [degF][facility]10-01-2024 17:56-0400Body .56 kgCore[facility]10-01-2024 17:56-0400Diastolic blood houcmdeo09 mm[Hg][facility] 02-08-2024 17:56-0400Heart rate84 /[facility] 02-08-2024 17:56-0400Respiratory rate16 /[facility] 02-08-2024 17:56-8684AuF5% (BldA) [Mass fraction]98 %[facility]10-01-2024 17:56-0400Systolic blood whbadbtl769 mm[Hg][facility]11-20-2022 11:10-0500Body .64 cmSkylie Kevin Other [employer] Other 11-20-2022 11:10-0500Body mass index (BMI) [Ratio] 30.34 kg/y4Yarnmfceskarine Kevin Other [employer] Other 11-20-2022 11:10-0500Body jcnoyfqpxxv57.9 [degF] Gema Kevin Other [employer] Other 11-20-2022 11:10-0500Body npgnei69.28 kgStkarine Kevin Other [employer] Other 11-20-2022 11:10-0500Diastolic blood ezqynipi83 mm[Hg] Gema Barreraault Other [employer] Other 11-20-2022 11:10-0500Respiratory rate18 /minSkylie Barreraault Other [employer] Other 11-20-2022 11:10-4485VbZ7% (BldA) [Mass fraction]96 % Gema Barreraault Other [employer] Other 11-20-2022 11:10-0500Systolic blood pkpzezas808 mm[Hg] Gema Barreraault Other [employer] Other 07-10-2022 11:50-0400Body dpdoae724.64 cmPamelnichole Bruce Other [employer] Other 07-10-2022 11:50-0400Body mass index (BMI) [Ratio]29.7 kg/p6Tmsvqk Janis Other [employer] Other 07-10-2022 11:50-0400Body hswsmdizkfn93.2 [degF]Alexa Janis Other [employer] Other 07-10-2022 11:50-0400Body otugyt28.46 kgPaalexandra Janis Other [employer] Other 07-10-2022 11:50-0400Diastolic blood hywgvqav96 mm[Hg] Alexa Janis Other [employer] Other 07-10-2022 11:50-0400Respiratory rate18 /minPaalexandra Bruce Other [employer] Other 07-10-2022 11:50-9535HgS5% (BldA) [Mass fraction]98 % Alexa Bruce Other [employer] Other 07-10-2022 11:50-0400Systolic blood aircjgxr681 mm[Hg] Alexa Bruce Other [employer] Other 08-09-2021 08:00-0400Body ljicudqlxnz12.39 [degF]Alex Armando MD Work Phone: [employer] Work Phone: [phone] 978-708008-09-2021 08:00-0400Diastolic blood mikpslzl59 mm[Hg] Alex Armando MD Work Phone: [employer] Work Phone: 1(842) 177-560308-09-2021 08:00-0400Heart rate80 /minAlex Armando MD Work Phone: [employer] Work Phone: 1(435) 329-765608-09-2021 08:00-0400Respiratory rate18 /minAlex Armadno MD Work Phone: [employer] Work Phone: 1([phone]) [phone] 08:00-7141AwF9% (BldA) [Mass fraction]96 % Alex Armando MD Work Phone: [employer] Work Phone: 1([phone]) [phone] 08:00-0400Systolic blood ybljijqh528 mm[Hg] Alex Amrando MD Work Phone: [employer] Work Phone: 1(110) [phone] 04:00-0400Body mass index (BMI) [Ratio]28.6 kg/m2Alex Armando MD Work Phone: [facility] [employer] Work Phone: 1([phone]) 398-490808-09-2021 04:00-0400Body bdzoiq48.38 kgAlex Armando MD Work Phone: [facility] [employer] Work Phone: 1([phone]) 578-595808-08-2021 04:15-0400Body egogmw336.6 cmAlex Armando MD Work Phone: [facility] [employer] Work Phone: 1(967) [phone] 02:45-0400Diastolic blood gtoidydh56 mm[Hg] Jet Newby MD Work Phone: [facility] [employer] Work Phone: 1(449) 224-443108-01-2021 02:45-0400Heart rate84 /minSgabrielle eNwby MD Work Phone: [facility] [employer] Work Phone: 1(310) [phone] 02:45-0400Respiratory rate23 /minSgabrielle Newby MD Work Phone: [facility] [employer] Work Phone: 1(874) [phone] 02:45-3345NxP6% (BldA) [Mass fraction]98 % Jet Newby MD Work Phone: [facility] [employer] Work Phone: [phone] 02:45-0400Systolic blood tvuojpjl651 mm[Hg] Jet Newby MD Work Phone: [facility] [employer] Work Phone: [phone] 23:02-0400Body gdgzvqvbrdu21.1 [degF]Jet Newby MD Work Phone: [facility] [employer] Work Phone: 1([phone] 555-738406-23-2020 07:43-0400BP Zciwmjcqw32 mm[Hg]Denver ChinmayPremier Health [facility], [place]61-69-5525 07:43-0400BP Pxvzduvo595 mm[Hg]Denver [facility], UU94-21-1524 07:43-0400Pulse (Heart Rate)83 /minKennedy [facility], OL53-87-4356 07:43-0400Pulse Ghrfesbe633 %Kennedy [facility], GU63-98-8478 07:43-0400Respiratory Rate16 /minKennedy [facility], [place]67-12-5231 20:19-0400BMI (Body Mass Index)26.47 kg/x2Dvwto [facility], SP45-43-3787 20:19-0400Body Huaiukzyjuk20.29 [degF]Kennedy [facility], FQ07-71-6143 20:19-0400Body ughqwu89.39 kgKennedy [facility], [place] 10-30-2019 20:19-6531Pojwhl996.6 cmTyler [facility], [place] Encounters Encounter DateEncounter TypeCare ProviderFacilityStart: 09-19-2024 End: 80-80-3262spsapzmiesJNVCThe Jewish Hospitaltart: 08-29-2024 End: 69-84-0109afpcygiwrrRZRRGEO [facility]: 02-29-2024 End: 00-88-6195mszneikkkcNWYEThe Jewish Hospitaltart: 02-08-2024 End: 52-31-2625vhthbeuzlkVlqjghpatC[facility] Work Phone: Start: 02-08-2024 End: 40-55-9859Psiglfb encounter procedureUnc Health [facility] Aayush Work Phone: Start: 11-27-2023 End: 33-21-7995Arfgsnrua department patient visitHealthSouth Rehabilitation Hospitaltart: 11-23-2023 End: 86-65-8952ibayhhwtvcFGEEThe Jewish Hospitaltart: 10-06-2023 End: 19-36-5060gnczuvcwuiCDBI [facility]: 09-21-2023 End: 02-77-7791Cybopzwve department patient visitBEVERLEY SANDERSATIBProUniversity Hospitals [facility] Centerca [facility] HospitalStart: 06-11-2022 End: 71-59-2362idpbdldohgFV SHAWN CAAL .Facility:U1Tevgj: 03-29-2022 End: 41-56-2426kkjugvnkktIoktguhax Breault Other [facility] [employer] Other Start: 76-01-5473Ajvynu outpatient visit 15 minutes Gema KevinFPG Urgent Care ClydeStart: 12-26-2021 End: 45-29-6241tspejupbhjBTOKZ PCPFacility:UNKNOWNStart: 11-21-2021 End: 83-23-4172ksrglvhzeuHPPU CHACKOFacility:G1Oyfsv: 11-20-2021 End: 81-18-6101klwfqqwdegAWZC CHACKOFacility:UTMCStart: 69-30-3005Bcykzvmnw for preprocedural laboratory examinationPAUL CHACorky Cárdenasue HospitalStart: 11-18-2021 End: 91-69-5012octhhfrukbJODD CHACKOFacility:X4Itozc: 11-18-2021 End: 46-99-3510Ngboprzqz for preprocedural laboratory examinationPAUL JAMISON Facility:E3Whycr: 11-16-2021 End: 99-91-0110vrkkoswxofQkjlhv Dymond Other [facility] [employer] Other Start: 77-19-8394Gtgzlk outpatient visit 15 minutes Alexa BruceFPG Urgent Care ClydeStart: 12-13-2020 End: 87-43-7872Tvbkxhylrj and management of inpatientMark Ron Armando MD Work Phone: mthz [facility]ENTERU MED SURGComment on above:COVID-19 (Primary Dx); Acute respiratory failure with hypoxia (HCC)Start: 12-07-2020 End: 10-02-4599Dfqnyqdus department patient visitSyed Nichole Newby MD Work Phone: [facility] EDComment on above:Chest wall pain (Primary Dx); COVID-19Start: 05-08-2020 End: 93-99-7569Wtuvnfqjqi hospital visit by physicianB[facility] Lab Drawing RoomMEDISYS HEALTH NETWORK LaboratoryComment on above: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Start: 10-30-2019 End: 10-43-8946Ssayuvskd department patient visitKennedy Moy Work Phone: [facility] EDComment on above:Syncope and collapse (Primary Dx); Chronic congestive heart failure, unspecified heart failure type (HCC)DO Saba Velásquez DO lHS Procedures DateProcedureProcedure DetailPerforming ClinicianStart: 37-31-1393Ozfsey ecg 1-3 leads w/interpretation & reportUnknown Provider ResultStart: 15-33-0874Izipkk dgradj products d-dimer quantitativeMark Ron Armando MD Work Phone: Start: 42-56-9601Yrwidg dgradj products d-dimer quantitativeMark Ron Armando MD Work Phone: Start: 12-15-2020 End: 51-92-4961Osznlj ecg 1-3 leads w/interpretation & reportUnknown Provider ResultStart: 96-30-0230Zucnf count complete automatedMark Ron Armando MD Work Phone: Start: 12-14-2020 End: 76-97-0958Evwdpd ecg 1-3 leads w/interpretation & reportUnknown Provider ResultStart: 09-93-1722V-reactive proteinMark Ron Armando MD Work Phone: Start: 31-78-3876Gdaqsefhkjzc pulse oximetryMark Ron Armando MD Work Phone: Start: 33-82-9612Yv thorax w/contrast [facility] Elian PA-C Work Phone: Start: 12-13-2020 End: 19-72-6434Wrv routine ecg w/least 12 lds i&r onlyUNM Sandoval [facility]- Work Phone: Start: 23-69-0306Zezjq gases any combination ph pco2 po2 co2 oyu3KefgmMesilla Valley Hospital Work Phone: Start: 12-13-2020 End: 79-97-6657Imdtatebbdmzm metabolic panelMesilla Valley Hospital Work Phone: Start: 67-38-9762Bguojdmitv exam chest single view [facility] Work Phone: Start: 53-72-8957Nbllc of troponin quantitativeSyed Nichole Newby MD Work Phone: Start: 21-82-2614Qcmzmcjqnh exam chest 2 viewsSyed Nichole eNwby MD Work Phone: Start: 67-57-2943BPLPL-19, RAPIDSyed Nichole Newby MD Work Phone: Start: 45-01-4378Ultoxbdcruoaj metabolic panelSyed Nichole Newby MD Work Phone: Start: 96-74-3746Rnyyc analysis volume count motility differentCarmen F Jasonmaeve Kenyon Work Phone: Start: 13-94-0249Hqu routine ecg w/least 12 lds w/i&r Kennedy Devotee Work Phone: Start: 83-91-3699Ldxzgbwkjz microscopic onlyTyler Devotee Work Phone: Start: 98-48-0246Ncmad dip stick/tablet rgnt auto w/o microscopyTyler Devotee Work Phone: Start: 40-44-3315Jrvjo of troponin quantitativeTyler Devotee Work Phone: Start: 62-06-6612Dqvua count complete auto&auto difrntl wbcTyler Devotee Work Phone: Start: 56-08-5819Zharmavdsqc peptideTyler Devotee Work Phone: Start: 32-39-8532Umxbrewvkxk timeTyler Devotee Work Phone: Start: 47-23-5284Uvyndkvsdx exam chest single view Kennedy Moy Work Phone: Start: 85-54-8305Wy head/brain w/o contrast material Kennedy Moy Work Phone: Start: 62-40-9084Ydzbrgvq screenComment on above:Order Comment: Is patient fasting? UNKNOWNPerformed By: #### L500.18535, L500.64263, L500.43772, L500.49480, L500.35756, L500.62776 #### Test performed at: [place] [id number]: 24-07-9625Yxifuhsd screenComment on above:Order Comment: Is patient fasting? UNKNOWNPerformed By: #### L500.35510, L500.96343, L500.13022, L500.38882, L500.97652, L500.39203 #### Test performed at: [address] [address]Oitnb: 26-77-3835Dlaevvuokszkzlqva Plan of Treatment DateCare ActivityDetailAuthorStart: 80-61-5830Iugdedqig vaccinationFlu vaccine (#1)[employer] Phone: start: 72-50-9742Jckgqsces vaccinationSelect [facility]: 33-91-2908REzO/Tdap/Td vaccine (1 - Tdap)DTaP/Tdap/Td vaccine (1 - Tdap)[facility]: 70-19-2688XCU screeningHIV screenSelect Medical Specialty Hospital - [facility]: 92-10-3691WAQAN-19 Vaccine (1)COVID-19 Vaccine (1)[facility] Phone: start: 84-51-2672Mtpspwkpe vaccine (1 of 2 - 2-dose childhood series)Varicella vaccine (1 of 2 - 2-dose childhood series)[facility]: 22-39-3131Fmgtljcxf C screeningHepatitis C screenCleveland Clinic Marymount HospitalJobinasecond, TONNYAcapellaAcapella Respiratory Care Routine Daily until discontinued starting 12/13/2020[employer] Phone: comxtng on above:Daily until discontinued starting 1aPTT in Blood by Coagulation assayAPTT Lab Routine Daily until discontinued starting 12/13/2020, 4 [employer] Phone: comtnzc on above:Daily until discontinued starting 12/13/2020, 4 completedComprehensive Metabolic Panel w/ Reflex to MG Comprehensive Metabolic Panel w/ Reflex to MG Lab Routine Daily until discontinued starting 12/13/2020, 4 [employer] Phone: comwsee on above:Daily until discontinued starting 12/13/2020, 4 completedD-Dimer, QuantitativeD-Dimer, Quantitative Lab Routine Daily until discontinued starting 12/13/2020, 4 [employer] Phone: comzpek on above:Daily until discontinued starting 12/13/2020, 4 completedEKG 12 LeadEKG 12 Lead ECG STAT 10/30/2019 9:24 PM EDT Smart [employer] TONNYFibrinogenFibrinogen Lab Routine Daily until discontinued starting 12/13/2020, 4 [employer] Phone: combhox on above:Daily until discontinued starting 12/13/2020, 4 completedOxygen therapy [Minimum Data Set]Initiate Oxygen Therapy Protocol Respiratory Care Routine Daily until discontinued starting 12/13/2020 [employer] Phone: comyufp on above:Daily until discontinued starting 4478Gcumrfy-RJSAgjmjzo-MYK Lab Routine Daily until discontinued starting 12/13/2020, 4 [employer] Phone: comtzgu on above:Daily until discontinued starting 12/13/2020, 4 completed End: [id number] ANALYSISSEMEN ANALYSIS Lab Routine 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 1 Occurrences starting 05/08/2020 until 05/08/2020[facility] [place]Comment [place]:1 Occurrences starting 05/08/2020 until 05/08/2020Semen analysisSemen analysis Lab Routine 05/08/2020 9:29 AM [facility], [place] Payers DatePayer CategoryPayerPolicy [id number] Health InsuranceAETNA AETNA NAP CHOICE POS II xxxxxxxxxx 2019-Present [phone] [address] [place] [address]shtatncgqf [id number] Health [id number] of Veterans [id number] [id number] [id number] [id number] [id number] [id number] [id number] [id number] [id number] Health InsuranceNov[facility] Health/[facility] Insurance [facility] [id number] Pay [id number] Social History DateTypeDetailFacilityStart: 06-29-2018 End: 80-24-4687Qzjhnvz smoking status NHISFormer smokerPremier Health Upper Valley Medical Centertart: [id number] Assigned At [facility]Not on [facility] by [facility]An[facility], [place]Exposure to SARS-CoV-2 (event)Unable to assessAnodyne Health, [place]Start: 10-30-2019 End: 98-57-5762Jairnuh use and exposureNever usedAnodyne Health, KYExposure to SARS-CoV-2 (event)Not sureCleveland Clinic Marymount HospitalJobinasecond, [place]Start: 12-07-2020 End: 61-46-4103Nufgrrg intakeLifetime non-drinker (finding)[facility] Phone: start: 40-17-2426Bjxlecr SDOH Alcohol Vqgjfglbb6ZlxxdFutura Medical Phone: exposure to SARS-CoV-2 (event)YesKlee Data SystemStart: 88-91-2969Cebclgw Comment3 beers a monthF[facility]ura Medical Phone: sex Assigned At [facility] EnterpriseStart: 12-26-2021 Denies Ever SmokedAMERICAN FORK HOSPITAL EnterpriseStart: 26-72-6850Nct Assigned At [facility] Clinical Notes 12-16-2020 to 09-19-2024 Note Date & [id number] NoteUT Electrophysiology Consult Note Reason for visit: follow-up s/p PPM placement due to sick sinus syndrome, Biotronik PPM implanted 04/2019, s/p EP study 09/2023 that was non inducible for SVT. 09/19/24 Patient is here for a follow up appointment. Patient states he is under a lot of stress due work family issues. Patient states he has occasional palpitations and some tachycardia which he feels. Patient has pacemaker check a month ago which he states he was told he had some events. Review of Systems Cardiovascular: Positive for irregular heartbeat and palpitations. 11/23/23 Patient underwent EP study on 10/06/2023 for SVT that was seen on device. This was suggestive for atrial tachycardia 150 bpm. Patient was taken to the EP lab and no tachycardia could be induced despite utilizing Isopril for induction. He was noted to have a dual AV node physiology. Following this right heart cath was performed which showed pressures to be normal at baseline however the wedge pressures increased to 50 mmHg with pacing at 150 beats a minute. Patient here for follow up heart cath and EP study. Says he feels much better after starting lasix bid. Denies chest pain, SOB, and lightheadedness/syncope. Says palpitations are much less frequent and has felt great. No episodes lately and none seen in November. HPI: Lima Quinones is a 38 y.o. year old with past medical history of sick sinus syndrome s/p PPM, atrial tachycardia, bariatric surgery which cause bradycardia and eventually led to sinus node dysfunction in 2019 with PPM placement, Orthostatic hypotension with history of syncope. Last device check 06/02/2022 shows underlying rhythm sinus at 90 bpm, a paced 55%, RV paced 0% with normal device function and lead thresholds. He was noted to have episodes of atrial tachycardia and on recent device check his lower limit rate was increased to 60 bpm he states he thinks he will feel better if his rates went up to 70 bpm as he has noticed some sluggishness [address] Swift 36-year-old man with a past medical history of morbid obesity who underwent bariatric surgery which was subsequently complicated by bradycardia and underwent pacemaker for sinus node dysfunction in 2019. He was subsequently admitted to [facility] on 05/16/2019 for chest pain and had undergone a stress test which was normal. However an echocardiogram showed concern for low ejection fraction with wall motion abnormalities and so he was taken to cardiac lab for a coronary angiography. He was subsequently admitted to [facility] again on 10/31/2019 after he was transferred from the emergency department at different hospital due to syncope and collapse he states that he was lightheaded and fell to the ground. Pacemaker interrogation showed normal functioning device but he was noted to be orthostatic at that time he was subsequently placed on fludrocortisone 0.1 mg daily and discharged. Device check that was performed today shows evidence of a dual-chamber Biotronik pacemaker that is implanted by Dr. Reaves on 04/26/2019 he was noted to have no RV pacing but the RV threshold was noted to be elevated at 2.8 V at 1 ms pulse width. As per Dr. Reaves's note he had initially noted to have persistent bradycardia with rates in the 30s that initially responded with atrial pacing but went back to again 30 bpm. During implant he was noted to have an increased pacing threshold of 3 V at 1 ms pulse width despite a good sensing. He is noted to have significant episodes of long RP tachycardia consistent with atrial tachycardia seen on the device testing. He feels these episodes quite often and feels washed out. Echocardiogram performed on 11/01/2019 shows EF of 50 to 55% with a left atrium that is normal size and no significant valvular abnormality 05/15/2019 shows EF of 45 to 50% 04/24/2019 shows EF of 55% Cardiac cath on 05/16/2019 CORONARY ANGIOGRAPHIC FINDINGS: 1. Left main coronary artery: Moderate-sized vessel that arises from left coronary cusp, giving rise to the left anterior descending artery andleft circumflex artery. There was no evidence of atheroscleroticdisease in the left main artery or it's branches. 2. Left anterior descending artery: Moderate-sized vessel that gave riseto 1st diagonal branch and small 2nd diagonal branches. There was noevidence of atherosclerotic disease in the left anterior descendingartery or its branches. 3. Left circumflex artery: Moderate-sized vessel that gives rise to the1st and 2nd obtuse marginal branch. There was no evidence ofatherosclerotic disease in the left circumflex artery or its branches. 4. Right coronary artery: Moderate large voluminous vessel dominantgiving rise to the right PDA and right PLV branch. There was n evidence of atherosclerotic disease in the right coronary artery sera's branches. (more content not included)...[facility]07-16-2024 NoteUT Electrophysiology Consult Note Reason for visit: follow-up s/p PPM placement due to sick sinus syndrome, Biotronik PPM implanted 04/2019, s/p EP study 09/2023 that was non inducible for SVT. 11/23/23 Patient underwent EP study on 10/06/2023 for SVT that was seen on device. This was suggestive for atrial tachycardia 150 bpm. Patient was taken to the EP lab and no tachycardia could be induced despite utilizing Isopril for induction. He was noted to have a dual AV node physiology. Following this right heart cath was performed which showed pressures to be normal at baseline however the wedge pressures increased to 50 mmHg with pacing at 150 beats a minute. Patient here for follow up heart cath and EP study. Says he feels much better after starting lasix bid. Denies chest pain, SOB, and lightheadedness/syncope. Says palpitations are much less frequent and has felt great. No episodes lately and none seen in November. HPI: Lima Quinones is a 38 y.o. year old with past medical history of sick sinus syndrome s/p PPM, atrial tachycardia, bariatric surgery which cause bradycardia and eventually led to sinus node dysfunction in 2019 with PPM placement, Orthostatic hypotension with history of syncope. Last device check 06/02/2022 shows underlying rhythm sinus at 90 bpm, a paced 55%, RV paced 0% with normal device function and lead thresholds. He was noted to have episodes of atrial tachycardia and on recent device check his lower limit rate was increased to 60 bpm he states he thinks he will feel better if his rates went up to 70 bpm as he has noticed some sluggishness [address] Swift 36-year-old man with a past medical history of morbid obesity who underwent bariatric surgery which was subsequently complicated by bradycardia and underwent pacemaker for sinus node dysfunction in 2019. He was subsequently admitted to [facility] on 05/16/2019 for chest pain and had undergone a stress test which was normal. However an echocardiogram showed concern for low ejection fraction with wall motion abnormalities and so he was taken to cardiac lab for a coronary angiography. He was subsequently admitted to [facility] again on 10/31/2019 after he was transferred from the emergency department at different hospital due to syncope and collapse he states that he was lightheaded and fell to the ground. Pacemaker interrogation showed normal functioning device but he was noted to be orthostatic at that time he was subsequently placed on fludrocortisone 0.1 mg daily and discharged. Device check that was performed today shows evidence of a dual-chamber Biotronik pacemaker that is implanted by Dr. Reaves on 04/26/2019 he was noted to have no RV pacing but the RV threshold was noted to be elevated at 2.8 V at 1 ms pulse width. As per Dr. Reaves's note he had initially noted to have persistent bradycardia with rates in the 30s that initially responded with atrial pacing but went back to again 30 bpm. During implant he was noted to have an increased pacing threshold of 3 V at 1 ms pulse width despite a good sensing. He is noted to have significant episodes of long RP tachycardia consistent with atrial tachycardia seen on the device testing. He feels these episodes quite often and feels washed out. Echocardiogram performed on 11/01/2019 shows EF of 50 to 55% with a left atrium that is normal size and no significant valvular abnormality 05/15/2019 shows EF of 45 to 50% 04/24/2019 shows EF of 55% Cardiac cath on 05/16/2019 CORONARY ANGIOGRAPHIC FINDINGS: 1. Left main coronary artery: Moderate-sized vessel that arises from left coronary cusp, giving rise to the left anterior descending artery andleft circumflex artery. There was no evidence of atheroscleroticdisease in the left main artery or it's branches. 2. Left anterior descending artery: Moderate-sized vessel that gave riseto 1st diagonal branch and small 2nd diagonal branches. There was noevidence of atherosclerotic disease in the left anterior descendingartery or its branches. 3. Left circumflex artery: Moderate-sized vessel that gives rise to the1st and 2nd obtuse marginal branch. There was no evidence ofatherosclerotic disease in the left circumflex artery or its branches. 4. Right coronary artery: Moderate large voluminous vessel dominantgiving rise to the right PDA and right PLV branch. There was n evidence of atherosclerotic disease in the right coronary artery sera's branches. PMH: No past medical history on file. PSH: Past Surgical History: Procedure Laterality Date CTA CHEST W IV CONTRAST 06/10/2019 CT CHEST ANGIOGRAM W AND/OR WO IV CONTRAST ROBERTSON CONVERSION SH: Social Determinants of Health Tobacco Use: Not on file Alcohol Use: Not on file Financial Resource Strain: Not on file Food Insec (more content not included)...[facility] 10-06-2023 NoteThank you![facility]05-29-2024 NoteHi! Can we please have him follow-up with Dr. Swift instead of me in 1 month? Unfortunately they didn't find any abnormal heart rhythms during his EP study and they recommended he follow-up with EP. I would appreciate it. Thanks! [facility]05-29-2024 NoteCardiovascular Laboratory Report FINAL IMPRESSIONS: Normal right-sided filling pressures and wedge pressure No significant elevation in wedge pressure post pacing Normal cardiac output/cardiac index Relatively low arterial oxygenation at rest RECOMMENDATIONS: Consider alternate etiologies for the patient's exertional shortness of breath namely pulmonary Aggressive cardiovascular risk factor modification Further recommendations deferred to Dr. Swift, Electrophysiology PROCEDURES: Ultrasound-guided access to the right common femoral vein, right heart catheterization METHODS: After risks, benefits, and alternatives were explained, written informed consent was obtained. The patient was prepped and draped in usual sterile fashion over both groins. Electrophysiology study was performed; please see separate report for details of the procedure. Right heart catheterization was performed using a Flowers catheter via the previously placed venous sheath. Pressures were measured in the right atrium, right ventricle, pulmonary artery, and pulmonary capillary wedge positions. Oxygen saturations were obtained and cardiac output/cardiac index was calculated using the modified Analilia principle. The pulmonary capillary wedge pressure and pulmonary artery pressure was repeated after the patient was paced to a heart rate of 140 and subsequently 150 bpm. After reviewing the hemodynamic data, it was elected to conclude the procedure. All catheters were removed. Overall the patient tolerated the procedure well. There were no overt complications. The remainder of the procedure as per the electrophysiology study dictation. FINDINGS: Hemodynamics: RA 3 RV 19/0, 4 PA 19/5 [11] PCWP 4 increased to 9 with pacing TPG 7 AO 118/75 [95] Cardiac output /cardiac index 8.25/4.16 AO sat /PA sat 94%/78% INDICATIONS: Exertional shortness of breath, suspicion of heart failure with preserved ejection fractionTuscarawas Hospital05-29-2024 Note COMPREHENSIVE EP STUDY PROCEDURE NOTE DATE OF PROCEDURE: 10/06/2023 PERFORMING PHYSICIAN: Dr. Madhu Swift INDICATIONS FOR PROCEDURE: 1. History of SVT seen on device with symptoms. 2. EGM suggestive of AT@ 150bpm CONSENT: Patient LOCATION: EP Lab PROCEDURAL SEDATION: Versed and Fentanyl. Monitoring: Cardiac telemetry, Blood pressure, continuous pulse oxymetry. Moderate sedation was administered by the sedation nurse under my supervision. Intraprocedural face to face sedation time: 79min (inclusive of RHC). FLUROSCOPY: 6minutes 34seconds/ 40mGy EBL: 25cc SPECIMEN REMOVED: None PREPARATION: Preoperative antibiotics was administered. PROCEDURES PERFORMED: 1. Ultrasound guided vascular access for 6Fx2, 8Fx 2 venous sheaths as documented below in procedure note and image stored in PACS. 2. Comprehensive EP study which includes right atrial recording and pacing, His bundle recording and right ventricular recording and pacing. INDICATION: 37year old with past medical history of sick sinus syndrome s/p PPM, atrial tachycardia, bariatric surgery which cause bradycardia and eventually led to sinus node dysfunction in 2019 with PPM placement, Orthostatic hypotension with history of syncope.Device check shows underlying rhythm of sinus normal device function and lead thresholds. He was noted to have episodes of atrial tachycardia and on recent device check with last episodes lasting 4min. He was initially given Flecainide and he could not tolerate it and so presented for EP study. PROCEDURE NOTE: The risks, benefits and alternatives of the procedure were discussed with the patient and family who agreed to proceed. Please refer to my office consult note for details of the discussion and of indications. Device check revealed normal thresholds and programmed to AAI 40bpm. Patient was brought to the EP lab in the post absorptive state. A procedural pause was performed verifying the patient, the procedure. The right groin was prepped and draped in the usual sterile fashion. Preoperative antibiotics IV Ancef was administered. Ultrasound was used to image the right femoral veins and it was noted to be patent and this was used for vessel entry as noted below. After infiltration with 1% lidocaine, 1 venous sheath was placed in the right. Details of catheters placed as follows. RFV: 6Fx2 RV: Hartfield Quad/Carlos, CRD2:His, 8FX2: EZ steer: CS Once catheter was in position, baseline intervals were noted as follows. At baseline, AH 69ms, HV was 41 milliseconds respectively. Following this, an EP study was performed. AV Wenckebach was noted at 350 milliseconds with a block at the AV node level. Thereafter, AEST was performed with Ah jump at 600/280 and single echo beats, AVNERP was 600/270ms and atrial ERP was also observed at 600/240 milliseconds. I performed VEST using 600ms drive train. VERP was noted at 600/220ms with no VA conduction at baseline. Burst pacing was done and no tachycardia could be induced. I then started Isuprel at 5mcg/min and increased to 10mcg/min. On this VA conduction was seen but no tachycardia could be induced. Given lack of induction, I decided not to perform any empiric ablation and IC team was called to perform right heart cathterization which will be dictated separately. The patient appeared to tolerate the procedure well and was returned to his room in stable condition. No complications were immediately observed. AHms 69 HVms 41 VERPms 600/220, VA condunction- @600ms AV Wenkebach ms 350ms AH jump ms 600/280 AVNERP ms 600/270 AERP ms 600/240 POST PROCEDURE DIAGNOSIS 1. EP study with no inducible arrhyhtmia 2. No VA conduction at baseline 600ms drive train but present with Isuprel infusion. 3. Dual AV node physiology. 4. Normal RHC pressures at baseline and PCWP increased from 4 to 15mmHg with pacing at 150bpm. RECOMMENDATIONS: 1. Follow up with EP. Madhu Swift MD Cardiac ElectrophysiologyTuscarawas Hospital05-29-2024 Note Patient: Lima Quinones Procedure Information Date/Time: 10/06/23 1530 Procedure: EP Study possible ablation Location: [facility] GLASS TECHNICIAN 1 EP / [facility] (Cath) Providers: Mdahu Swift MD Clinical information reviewed: Allergies Meds Physical Exam Airway Mallampati: II TM distance: >3 FB Neck ROM: full Cardiovascular Dental Pulmonary Abdominal Anesthesia Plan ASA 2 CSE Anesthetic plan and risks discussed with patient. Use of blood products discussed with patient who. Additional Equipment RequestsTuscarawas Hospital05-29-2024 Note RI Electrophysiology Consult Note Reason for visit: 1 year follow-up s/p PPM placement due to sick sinus syndrome, Biotronik PPM implanted 04/2019 HPI: Lima Quinones is a 37 y.o. year old with past medical history of sick sinus syndrome s/p PPM, atrial tachycardia, bariatric surgery which cause bradycardia and eventually led to sinus node dysfunction in 2019 with PPM placement, Orthostatic hypotension with history of syncope. Last device check 06/02/2022 shows underlying rhythm sinus at 90 bpm, a paced 55%, RV paced 0% with normal device function and lead thresholds. He was noted to have episodes of atrial tachycardia and on recent device check his lower limit rate was increased to 60 bpm he states he thinks he will feel better if his rates went up to 70 bpm as he has noticed some sluggishness [address] Swift 36-year-old man with a past medical history of morbid obesity who underwent bariatric surgery which was subsequently complicated by bradycardia and underwent pacemaker for sinus node dysfunction in 2019. He was subsequently admitted to [facility] on 05/16/2019 for chest pain and had undergone a stress test which was normal. However an echocardiogram showed concern for low ejection fraction with wall motion abnormalities and so he was taken to cardiac lab for a coronary angiography. He was subsequently admitted to [facility] again on 10/31/2019 after he was transferred from the emergency department at different hospital due to syncope and collapse he states that he was lightheaded and fell to the ground. Pacemaker interrogation showed normal functioning device but he was noted to be orthostatic at that time he was subsequently placed on fludrocortisone 0.1 mg daily and discharged. Device check that was performed today shows evidence of a dual-chamber Biotronik pacemaker that is implanted by Dr. Reaves on 04/26/2019 he was noted to have no RV pacing but the RV threshold was noted to be elevated at 2.8 V at 1 ms pulse width. As per Dr. Reaves's note he had initially noted to have persistent bradycardia with rates in the 30s that initially responded with atrial pacing but went back to again 30 bpm. During implant he was noted to have an increased pacing threshold of 3 V at 1 ms pulse width despite a good sensing. He is noted to have significant episodes of long RP tachycardia consistent with atrial tachycardia seen on the device testing. He feels these episodes quite often and feels washed out. Echocardiogram performed on 11/01/2019 shows EF of 50 to 55% with a left atrium that is normal size and no significant valvular abnormality 05/15/2019 shows EF of 45 to 50% 04/24/2019 shows EF of 55% Cardiac cath on 05/16/2019 CORONARY ANGIOGRAPHIC FINDINGS: 1. Left main coronary artery: Moderate-sized vessel that arises from left coronary cusp, giving rise to the left anterior descending artery andleft circumflex artery. There was no evidence of atheroscleroticdisease in the left main artery or it's branches. 2. Left anterior descending artery: Moderate-sized vessel that gave riseto 1st diagonal branch and small 2nd diagonal branches. There was noevidence of atherosclerotic disease in the left anterior descendingartery or its branches. 3. Left circumflex artery: Moderate-sized vessel that gives rise to the1st and 2nd obtuse marginal branch. There was no evidence ofatherosclerotic disease in the left circumflex artery or its branches. 4. Right coronary artery: Moderate large voluminous vessel dominantgiving rise to the right PDA and right PLV branch. There was n evidence of atherosclerotic disease in the right coronary artery sera's branches. PMH: No past medical history on file. PSH: Past Surgical History: Procedure Laterality Date CT CHEST ANGIOGRAM W AND/OR WO IV CONTRAST 06/10/2019 CT CHEST ANGIOGRAM W AND/OR WO IV CONTRAST ROBERTSON CONVERSION SH: Social Determinants of Health Tobacco Use: Not on file Alcohol Use: Not on file Financial Resource Strain: Not on file Food Insecurity: Not on file Transportation Needs: Not on file Physical Activity: Not on file Stress: Not on file Social Connections: Not on file Intimate Partner Violence: Unknown (07/01/2023) [place] [employer] [place] Fear of Current or Ex-Partner: Not on file Emotionally Abused: Not on file Physically Abused: Not on file Sexually Abused: Not on file Physically or Sexually Abused: Not on file Depression: Not on file Housing Stability: Not on file Utilities: Not on file Allergies: Allergies Allergen Reactions Nsaids (Non-Steroidal Anti-Inflammatory Drug) Previous gastric sleeve surgery; causes GI bleed Weight: 86.7kg Visit Vitals BP 130/86 Pulse 99 Resp 18 SpO2 99% Meds: No current facility-administered medications on file prio (more content not included)...[facility]05-14-2024 NoteXR CHEST 2 VWS Procedure: Chest x-ray performed Number of views:2 History:Chest pain Comparison:None Findings: The heart and lungs show no acute findings, and the mediastinum and gavino are grossly negative . A pacemaker is present. Impression: 1. No acute change. Finalized by Inderjit Ulloa MD on 09/20/2023 10:37 [facility] 03-29-2022 Evaluation note* Encounter Date Diagnosis Assessment Notes Treatment Notes Treatment Clinical Notes Mar, Eczema, unspecified type (ICD-10 - L30.9) Contact dermatitis home care material was printed Drink plenty fluids, get plenty of rest. Take the prednisone as prescribed until gone starting in the morning. Steroid shot given in office. Use the steroid ointment as prescribed. Follow-up with your electroplating laborer if no improvement in 4 to 5 days , Atopic dermatitis: adult home care material was printed [employer] Other 08-19-2022 Hospital Discharge instructions ED Discharge Education Evaluation from 12/26/2021 1:58 AM: * Discharge Instruction : Patient/Significant Other Verbalized Understanding of Discharge Instructions,Reviewed Discharge Instructions with Patient/Significant Other Patient Transfer Information from 12/25/2021 10:26 PM: * LOC : Alert Physician Follow-up Plan/Appointments from 12/26/2021 1:16 AM: * Patient stated Primary Care Provider : PCP, Other (PCP) ([id number]) - Medical S 07-10-2022 Evaluation note* Encounter Date Diagnosis Assessment Notes Treatment Notes Treatment Clinical Notes Nov, Eczema, unspecified type (ICD-10 - L30.9) Contact dermatitis home care material was printed Drink plenty fluids, get plenty of rest. Take the prednisone as prescribed until gone. Use the steroid ointment as prescribed. Follow-up with your electroplating laborer if no improvement in 4 to 5 days [employer] Other 08-09-2021 History of Present illness Narrative* Marisa Bains RN - 12/16/2020 2:17 PM EDT Iron Worker Apprentice checked in on patient at this time. He states his will be on her way shortly to pick him up. Pt instructed to call staff when his is here and we will take him downstairs in a wheelchair. Pt verbalizes understanding and denies any needs at present time. * Marisa Bains RN - 12/16/2020 11:15 AM EDT Discharge instructions reviewed with the patient. All questions and concerns were addressed. Unit number provided to the patient should they come up with any questions once they are home. Pt verbalizes understanding of instructions. * Marisa Bains RN - 12/16/2020 8:00 AM EDT Pt assessed and vitals obtained at this time. Pt is alert and oriented x4. Pt states he feels a lotbetter than when he came in. Pt c/o a headache. PRN tylenol administered as charted. Pt lung soundsare clear/diminished. SPO2 running WDL on room air. Per Annalise MARIA, bond underwriter is to call pharmacy to see if scheduled dose of remdesivir can be administered sooner so pt can be discharged today. Per pharmacy, they will move the dose to 1100. Annalise FISH PACKER and pt made aware. Pt denies any further needs atthis time. * Josefina Darling LSW - 12/16/2020 7:55 AM EDT SW called to pt room to complete assessment due to Covid diagnosis. Pt is alert and oriented and cooperative with assessment. Pt is a 35 year old male admitted for Covid 19 infection. Pt lives with his spouse and his son in their home in [place]. Pt reports no use of any DME or community services prior to admission. Pt drives and is able to get himself to appointments without concerns. Pt is a full code and follows with Dr Tracey Saunders as PCP. Pt reports that he does have advance directives and copy was requested at his convenience. ACP note completed with pt. Pt reports that his medications have been covered pretty well by insurance. Pt plans to return home with family at discharge. Pt identifies no discharge needs or concerns at this time. SW will remain available as needed. Josefina DE LA VEGA 12/16/2020 * Cherie Hathaway RN - 12/16/2020 4:05 AM EDT While observing patient telemetry, this bond underwriter noticed that patient goes into sinus tach very briefly occasionally. Rate was seen as high as 117. Then rate will slow down into the 80's. Will continueto monitor. * Cherie Hathaway RN - 12/15/2020 7:42 PM EDT At bedside with patient, assessment done, vitals obtained, white board updated. Patient reports 6/10 pain in his head at this time and would like tylenol once its time again. No other needs at this time. Will continue to monitor. * Alex Armando MD - 12/15/2020 8:43 AM EDT Feeling better. Denies any fevers or chills. Less cough. Off oxygen now. Vitals: 12/15/20 0635 BP: Pulse: Resp: Temp: SpO2: 95% Regular heart rate. Clear lung sounds. Just a little diminished. No crackles. Abdomen is soft. No abdominal distention. No oxygen noted. Edema. Principal Problem: Reinfection by COVID-19 virus / Prior Positive Antibody Test 2020 Active Problems: Sick sinus syndrome (HCC) / pacemaker 2020 Resolved Problems: * No resolved hospital problems. * Improving. Likely home tomorrow. * Florence Stover RN - 12/15/2020 12:00 AM EDT Patient prone for four hours. Tolerated well. * Josefina Olivas RPH - 12/14/2020 10:19 AM EDT Medication clarified. Identified patient home medication. Last filled 12/02/20 klaus carmona bup 100 apo. Buproprion 100 mg tablets 3 tablets po daily. Updated med rec and reorder medication. Will use hospital supply * Diya Prajapati - 12/14/2020 9:43 AM EDT Patient given and instructed on acapella. Patient educated on importance of prone position if tolerated, lying side to side if prone isn't tolerated and ambulating in room. * Angelina Dela Cruz RD, LD - 12/14/2020 7:53 AM EDT Comprehensive Nutrition Assessment Type and Reason for Visit: Initial, Positive Nutrition Screen (MST 1) Nutrition Recommendations/Plan: 1. Continue current diet. 2. Recommend addition of vitamin C and vitamin D daily r/t COVID-19. 3. Add 8 oz strawberry Glucerna TID with meals. Nutrition Assessment: Predicted suboptimal oral intakes r/t impaired respiratory dysfunction aeb NoPO x 36 hours prior to admission. States he was nauseated, felt like he could not keep anything down. Statesh he has his taste and smell. Pt admitted with COVID-19. Glucose is elevated, on steroids, zinc, remdesivir, ivermectin. Recommend addition of vitamin C and vitamin D. Pt with Hx of Gastric Sleeve. Agrees to try strawberry glucerna. Malnutrition Assessment: Malnutrition Status: At risk for malnutrition (Comment) Context: Acute Illness Findings of the 6 clinical characteristics of malnutrition: Energy Intake: Mild decrease in energy intake (Comment) (had not eaten for 36 hours before admission) Weight Loss: No significant weight loss Body Fat Loss: No significant body fat loss Muscle Mass Loss: No significant muscle mass loss Fluid Accumulation: No significant fluid accumulation Hybrid Technologist Strength: Not Performed Estimated Daily Nutrient Needs: Energy (kcal): 7974-9600 (25-28/kg); Weight Used for Energy Requirements: Current Protein (g): 85-98g (1.3-1.5g/kg); Weight Used for Protein Requirements: Independence Fluid (ml/day): 2,000 ml; Method Used for Fluid Requirements: 1 ml/kcal Nutrition Related Findings: no malnutrition indices noted through room window Wounds: None Current Nutrition Therapies: ADULT DIET; Regular Anthropometric Measures: Height: 5' 6 (167.6 cm) Current Body Weight: 177 lb (80.3 kg) Admission Body Weight: 176 lb 9.4 oz (80.1 kg) Usual Body Weight: 164 lb (74.4 kg) (10/30/19) Independence Body Weight: 142 lbs; % Independence Body Weight 124.6 % BMI: 28.6 BMI Categories: Overweight (BMI 25.0-29.9) Nutrition Diagnosis: Predicted inadequate energy intake related to impaired respiratory function as evidenced by other (comment) (No PO x 36 hours before admission) Nutrition Interventions: Food and/or Nutrient Delivery: Start Oral Nutrition Supplement, Modify Current Diet, Vitamin Supplement (8 oz Glucerna TID with meals ) Nutrition Education/Counseling: No recommendation at this time Coordination of Nutrition Care: Continue to monitor while inpatient Goals: PO > 75% of meals and supplements Recent Labs 12/13/20 1654 12/13/20 1654 12/13/20 2200 12/14/20 0605 NA 141 -- 140 138 K 3.9 -- 4.1 4.2 CL 103 -- 103 101 CO2 27 -- 25 26 BUN 14 -- 13 15 CREATININE 0.65* -- 0.65* 0.62* GLUCOSE 108* -- 104* 171* ALT 13 -- 13 15 ALKPHOS 93 -- 92 107 GFR < > < > = values in this interval not displayed. Lab Results Component Value Date LABALBU 4.3 12/14/2020 Nutrition Monitoring and Evaluation: Behavioral-Environmental Outcomes: None Identified Food/Nutrient Intake Outcomes: Food and Nutrient Intake, Supplement Intake Physical Signs/Symptoms Outcomes: Biochemical Data, Weight Discharge Planning: Continue current diet Contact: [id number] * Florence Stover RN - 12/13/2020 9:15 PM EDT Patient is admitted to room 325 from ER. Patient is awake, alert and oriented. Vital signs and assessment done. Patient's home meds reviewed with patient and spouse. Navigator is done. Patient refuseto use bedside tablet. Patient is on 2lpm oxygen via nasal cannula, not complaining of shortness ofbreath at this moment. Patient's medications are in the cabinet. [facility] Phone: [phone] Hospital Discharge instructions* Discharge Instr - Activity* Marisa Bains RN - 12/16/2020 10:43 AM EDT As tolerated * Discharge Instr - Diet* Marisa Bains RN - 12/16/2020 10:43 AM EDT Good nutrition is important when healing from an illness, injury, or surgery. Follow any nutrition recommendations given to you during your hospital stay. If you were given an oral nutrition supplement while in the hospital, continue to take this supplement at home. You can take it with meals, in-between meals, and/or before bedtime. These supplements can be purchased at most local grocery stores, pharmacies, and [employer] [employer] [facility]. If you have any questions about your diet or nutrition, call the hospital and ask for the dietitian. General diet, encourage fluids * Additional Instructions* Marisa Bains RN - 12/16/2020 Quarantine through December 21 Continue Acapella at home Patient Instructions: Activity: activity as tolerated Diet: regular diet Wound Care: none needed Other: Acapella Disposition: Discharge to Home Follow up: Patient will be followed by Tracey Saunders DO in 1-2 weeks * Attachments The following attachments cannot be sent through Care Everywhere. * Coronavirus Disease (COVID-19): Caring for Yourself: Quick List (German) * Coronavirus Disease (COVID-19): General Info (German) * Coronavirus Disease (COVID-19): High Risk for Serious Illness: General Info (German) * Coronavirus Disease (COVID-19): Hospital Discharge (German) * Coronavirus Disease (COVID-19): Isolation (German) documented in this encounterC[facility] HospitalShop[facility] Work Phone: evaluation + Plan note S Evaluation note* Diagnosis Chest wall pain- Primary Painful respiration COVID-[address] [facility]: evalagdjxs note* Diagnosis Reinfection by COVID-19 virus / Prior Positive Antibody Test 2020- Primary COVID-19 Acute respiratory failure with hypoxia (HCC) Acute respiratory failure Sick sinus syndrome (HCC) / pacemaker 2020 Sinoatrial node dysfunction [facility] Phone: evaluation noteNo assessment information available [facility] Work Phone: History general Narrative - Reported* Type Description Date Medical History 1500 lbs farm mower fell on pt's chest Medical HistoryOSAMedical HistoryHX of elevated LFTsMedical HistoryADHDMedical HistoryINCOMPLETE RBBB, BRADYCARDIAMedical HistoryPOTSMedical Historymigraines Medical HistoryBipolar type 2 diagnosed October 2019Medical Historybradycardia Medical Historyheart failureMedical HistoryCovid-19 with acute resp failure urgical HistoryHernia surgery as child - age 4 or 5Surgical History had HerniasSurgical HistoryCortisone injections - Pain Management in groin and abdomenSurgical HistoryGASTRIC SLEEVE01/03/2019Surgical HistoryPACEMAKER QLIIGQGSI36/18/2019Surgical HistoryHEART CATH05/2019 Hospitalization HistorySEE ABOVE SURGICAL HXHospitalization HistoryUT -- HEART 04/2019Hospitalization HistoryUT -- HEART05/2019Hospitalization HistoryPOTS, possible epilieptic seizures, migraine10/[facility] [place] [facility] with acute respiratory failure with hypoxia12/13 -12/16/2020 [employer] Other History general Narrative - Reported* Type Description Date Medical History 1500 lbs farm mower fell on pt's chest Medical HistoryOSAMedical HistoryHX of elevated LFTsMedical HistoryADHDMedical HistoryINCOMPLETE RBBB, BRADYCARDIAMedical HistoryPOTSMedical Historymigraines Medical HistoryBipolar type 2 diagnosed October 2019Medical Historybradycardia Medical Historyheart failureMedical HistoryCovid-19 with acute resp failure urgical HistoryHernia surgery as child - age 4 or 5Surgical History had HerniasSurgical HistoryCortisone injections - Pain Management in groin and abdomenSurgical HistoryGASTRIC SLEEVE01/03/2019Surgical HistoryPACEMAKER COJJHTAAY50/18/2019Surgical HistoryHEART CATH05/2019Surgical Historypacemaker lead replacementHospitalization HistorySEE ABOVE SURGICAL HX Hospitalization HistoryUT -- HEART04/2019Hospitalization HistoryUT -- HEART 05/2019Hospitalization HistoryPOTS, possible epilieptic seizures, migraine10/[facility] [place] [facility] with acute respiratory failure with hypoxia12/13 -12/16/2020 [employer] Other Hospital course [facility] Hospital Discharge instructions* Instructions* Jet Newby MD - 12/08/2020 Please take all medications as prescribed. Please follow up with your primary care physician by calling today, or as soon as possible, for thefirst available appointment. If you do not have a primary care physician, please contact a physician or clinic listed below today to establish care. Please return to the emergency department IMMEDIATELY if you develop uncontrolled fevers, uncontrolled vomiting, change in symptoms, worsening of symptoms, or ANY other concerns. * Attachments The following attachments cannot be sent through Care Everywhere. * Chest Pain: Musculoskeletal (German) [facility] Work Phone: Summary Purpose Family History No Family History Records FoundNo Family History Records FoundNo Family History Records FoundNo Family History Records FoundNo Family History Records FoundNo Family History Records FoundNo Family History Records FoundNo Family History Records Found Advance Directives No Advanced Directives Records FoundDocuments on File TypeDate RecordedPatient RepresentativeExplanationAdvance Directives and Living WillPower of AttorneyTypeDate RecordedPatient RepresentativeExplanationACP- Advance DirectiveACP-Power of AttorneyCode StatusDate ActivatedDate Inactivated CommentsFull Code12/13/2020 9:16 PMNameRelationshipHealthcare Agent Relationship Joann Langeb[facility] Decision Maker* Advance Directive Response Recorded Date/ Time Advance Directives No July 14 11:51am Assessments Diagnosis Syncope and collapse Chronic congestive heart failure, unspecified heart failure type (HCC) Diagnosis 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 Male infertility, unspecified Chief Complaint and Reason for Visit Chief Complaint Eczema Additional Source Comments (unrecognized sect ion and content) No Status Records FoundNo Status Records FoundNo Status Records FoundNo Status Records FoundNo Status Records FoundNo Status Records FoundNo Status Records FoundNo Status Records Found INFORMATION SOURCE (unrecogn ized section and content) DATE CREATED AUTHOR 01/13/2019 [facility] DATE CREATED AUTHOR AUTHOR'S ORGANIZ ATION 12/05/2021 [facility] DATE CREATED AUTHOR AUTHOR'S ORGANIZ ATION 05/23/2022 [facility] DATE CREATED AUTHOR AUTHOR'S ORGANIZ ATION 07/29/2022 [facility] DATE CREATED AUTHOR AUTHOR'S ORGANIZ ATION 08/21/2022 [facility] DATE CREATED AUTHOR AUTHOR'S ORGANIZ ATION 09/22/2023 [facility] DATE CREATED AUTHOR AUTHOR'S ORGANIZ ATION 12/19/2023 [facility] DATE CREATED AUTHOR AUTHOR'S ORGANIZ ATION 09/24/2024 [facility] Reason for Visit (unrecogniz ed section and content) ReasonCommentsHeadacheonset most of the day ; states constant headache 2-3 since placement of pacemaker; today pain is a 7 Loss of Consciousnessunknown amount of timeReasonCommentsChest Painonset 1800, mscp.HeadacheReasonComments Shortness of BreathCovid + last sat, seen here told to come back if SOB worsened. Pt states his Pulse Ox at home was at 88%Positive For Covid-19 Generalized Body AchesHeadacheAbdominal PainperiumbilicalStatusReasonSpecialty Diagnoses / ProceduresReferred By ContactReferred To Contact Diagnoses Acute respiratory failure with hypoxia (HCC) COVID-19 virus infection COVID-19 Alex Armando MD [address] [place] [address], [place] [address] [facility] Ordered Prescriptions (unrec ognized section and content) PrescriptionSigDispensedRefillsStart DateEnd Date tiZANidine (ZANAFLEX) 4 MG tablet Take 1 tablet by mouth every 8 hours as needed (Muscle pain) 10 tablet rescriptionSigDispensedRefillsStart DateEnd Date ivermectin 3 MG tablet Take 4 tablets by mouth daily for 2 days 8 tablet /04/2021 vitamin D (ERGOCALCIFEROL) 1.25 MG (89611 UT) CAPS capsule Take 1 capsule by mouth once a week 4 capsule Ascorbic Acid (VITAMIN C) 1000 MG tablet Take 1 tablet by mouth 2 times daily for 7 days 14 tablet / zinc sulfate (ZINCATE) 220 (50 Zn) MG capsule Take 2 capsules by mouth daily 30 capsule Scheduled Active and Recently Administ ered Medications (unrecognized section and content) Medication Order// aspirin chewable tablet 324 mg (COMPLETED) 324 mg, Oral, ONCE, On 12/07/20 at 2315, For 1 dose * 2333 (Given - Provider: Mala Helton RN) fentaNYL (SUBLIMAZE) injection 50 mcg (COMPLETED) 50 mcg, Intravenous, ONCE, On 12/07/20 at 2315, For 1 dose, If oral and IV narcotics ordered, use oral first and only use IV if oral is ineffective or cannot take oral. Do Not give oral and IV within 1 hour of each other unless specifically ordered. * 2334 (Given - Provider: Mala Helton RN) Medication Order///01/2021 amphetamine-dextroamphetamine (ADDERALL XR) extended release capsule 20 mg 20 mg, Oral, DAILY, First dose (after last modification) on 12/14/20 at 0900, Use pt's home supply, * 0959 (Given - Provider: Diya Prajapati) * 0912 (Given - Provider: Diya Prajapati) * 0817 (Given - Provider: Marisa Bains, DEACON) amphetamine-dextroamphetamine (ADDERALL) tablet 10 mg 10 mg, Oral, DAILY, First dose on 12/14/20 at 1700, Use pt's home supply, * 1645 (Given - Provider: Diya Prajapati) * 1614 (Not Given - Provider: Diya Prajapati - Reason: Patient/family refused) * 1700 (Due) buPROPion (WELLBUTRIN) tablet 300 mg 300 mg, Oral, DAILY, First dose on 12/14/20 at 1045, Using Patient's own home medication. All medications are identified prior to administration per hospital policy. * 1143 (Given - Provider: Diya Prajapati) * 0910 (Given - Provider: Diya Prajapati) * 0815 (Given - Provider: Marisa Bains, DEACON) enoxaparin (LOVENOX) injection 40 mg 40 mg, Subcutaneous, DAILY, First dose on 12/14/20 at 0900 * 0934 (Given - Provider: Diya Prajapati) * 0911 (Given - Provider: Diya Prajapati) * 0814 (Given - Provider: Mairsa Bains, DEACON) famotidine (PEPCID) tablet 40 mg 40 mg, Oral, 2 TIMES DAILY, First dose on Wed12/13/20 at 2145 * 0037 (Given - Provider: Florence Stover RN) * 0933 (Given - Provider: Diya Prajapati) * 2046 (Given - Provider: Florence Stover RN) * 0911 (Given - Provider: Diya Prajapati) * 203 (Given - Provider: Cherie Hathaway RN) * 0816 (Given - Provider: Marisa Bains, DEACON) * 2100 (Due) fludrocortisone (FLORINEF) tablet 0.1 mg 0.1 mg, Oral, DAILY, First dose on 12/14/20 at 0900 * 0933 (Given - Provider: Diya Prajapati) * 0911 (Given - Provider: Diya Prajapati) * 0816 (Given - Provider: Marisa Bains, DEACON) ivermectin tablet 12 mg 12 mg (rounded from 11.91 mg = 150 mcg/kg 79.4 kg), Oral, DAILY, First dose on Wed12/14/20 at 0900, For 5 days * 0934 (Given - Provider: Diya Prajapati) * 0911 (Given - Provider: Diya Prajapati) * 0815 (Given - Provider: Marisa Bains, DEACON) lamoTRIgine (LAMICTAL) tablet 200 mg 200 mg, Oral, DAILY, First dose on Wed12/14/20 at 0900 * 0934 (Given - Provider: Diya Prajapati) * 0911 (Given - Provider: Diya Prajapati) * 0816 (Given - Provider: Marisa Bains, DEACON) methylPREDNISolone sodium (SOLU-MEDROL) injection 40 mg 40 mg, Intravenous, EVERY 12 HOURS, First dose on Wed12/13/20 at 2145, For 10 days * 0037 (Given - Provider: Florence Stover RN) * 0933 (Given - Provider: Diya Prajapati) * 2045 (Given - Provider: Florence Stover RN) * 0911 (Given - Provider: Diya Prajapati) * 203 (Given - Provider: Cherie Hathaway RN) * 0816 (Given - Provider: Marisa Bains RN) * 2144 (Due) midodrine (PROAMATINE) tablet 10 mg 10 mg, Oral, 2 TIMES DAILY, First dose on Wed12/13/20 at 2145, Do not give after 1800 or within 4 hrs of bedtime. * 0038 (Not Given - Provider: Florence Stover RN - Reason: Patient/family refused) * 0936 (Given - Provider: Diya Prajapati) * 2048 (Not Given - Provider: Florence Stover RN - Reason: Patient took at home) * 0911 (Given - Provider: Diya Prajapati) * 2035 (Not Given - Provider: Cherie Hathaway RN - Reason: Patient/family refused) * 0817 (Not Given - Provider: Marisa Bains RN - Reason: Patient/family refused) * 2100 (Due) pantoprazole (PROTONIX) tablet 40 mg 40 mg, Oral, DAILY, First dose on Wed12/14/20 at 0900, Do not crush or break. * 0934 (Given - Provider: Diya Prajapati) * 0911 (Given - Provider: Diya Prajapati) * 0816 (Given - Provider: Marisa Bains RN) remdesivir 100 mg in sodium chloride 0.9 % 250 mL IVPB 100 mg, Intravenous, at 500 mL/hr, Administer over 30 Minutes, EVERY 24 HOURS, First dose on Wed12/14/20 at 2300, For 4 doses, Flush line with at least 30 mL normal saline after remdesivir infusion iscomplete. * 2317 (New Bag - Provider: Florence Stover RN) * 2347 (Stopped - Provider: Florence Stover RN) * 2256 (New Bag - Provider: Cherie Hathaway RN) * 2345 (Stopped - Provider: Cherie Hathaway RN) * 1105 (New Bag - Provider: Marisa Bains RN) * 1200 (Stopped - Provider: Marisa Bains RN) remdesivir 200 mg in sodium chloride 0.9 % 250 mL IVPB (COMPLETED) 200 mg, Intravenous, at 500 mL/hr, Administer over 30 Minutes, ONCE, On Wed12/13/20 at 2300, For 1 dose, Flush line with at least 30 mL normal saline after remdesivir infusion is complete. * 0048 (New Bag - Provider: Florence Stover RN) * 0118 (Stopped - Provider: Florence Stover RN) sodium chloride flush 0.9 % injection 5-40 mL 5-40 mL, Intravenous, EVERY 12 HOURS SCHEDULED (2 times per day), First dose on Wed12/13/20 at 2145,For Line Patency: Peripheral IV = 5 mL; Midline or Central Line = 10 mL/lumen. If following IV pushmedication, administer flush at same rate as the IV push. Flush volume is determined by type of infusion therapy being given. For non-viscous solutions use: Peripheral IV = 5 mL Midline or Central Line = 10 mL/lumen For viscous solutions (i.e. blood components, parenteral nutrition, contrast media,or after obtaining blood sample) use: Peripheral IV = 10 mL Midline or Central Line = 20 mL/lumen * 0049 (Not Given - Provider: Aurhist Ck, RN - Reason: IV Fluid Infusing) * 0939 (Not Given - Provider: Diya Prajapati - Reason: IV Fluid Infusing) * 2045 (Given - Provider: Florence Stover RN) * 0912 (Given - Provider: Diya Prajapati) * 2033 (Given - Provider: Cherie Hathaway RN) * 0816 (Given - Provider: Marisa Bains, DEACON) * 2100 (Due) Vitamin D (CHOLECALCIFEROL) tablet 5,000 Units (COMPLETED) 5,000 Units, Oral, ONCE, On Wed12/14/20 at 0045, For 1 dose, Maintenance Dose. * 0038 (Given - Provider: Florence Stover RN) zinc sulfate (ZINCATE) capsule 100 mg 100 mg, Oral, DAILY, First dose on Wed12/14/20 at 0900, Each 220mg Zinc Sulfate cap contains 50mg elemental zinc. * 0933 (Given - Provider: Diya Prajapati) * 0910 (Given - Provider: Diya Prajapati) * 0816 (Given - Provider: Marisa Bains RN) zolpidem (AMBIEN) tablet 5 mg (COMPLETED) 5 mg, Oral, ONCE, On Wed12/13/20 at 2345, For 1 dose * 0038 (Given - Provider: Florence Stover RN) Medication Order12/14////01/2021 0.9 % sodium chloride bolus 30 mL (0.378 mL/kg), Intravenous, at 180 mL/hr, Administer over 10 Minutes, PRN, for Remdesivir line flush, Starting on Wed12/13/20 at 215 0.9 % sodium chloride infusion 25 mL, Intravenous, at 100 mL/hr, PRN, If patient receiving piggyback infusions without ordered maintenance IV fluids or with frequent/long duration piggyback infusions, Starting on Wed12/13/20 at 2115, Administer at the same rate as the piggyback being infused. acetaminophen (TYLENOL) suppository 650 mg(Linked Group 1) 650 mg, Rectal, EVERY 6 HOURS PRN, Pain Mild (1-3), Fever, For temp greater than 100.4 F (38 C), Starting on Wed12/13/20 at 2115, Administer if oral route cannot be used. * 0047 (See Alternative - Provider: Florence Stover RN) * 1017 (See Alternative - Provider: Diya Prajapati) * 1642 (See Alternative - Provider: Diya Prajapati) * 0716 (See Alternative - Provider: Diya Prajapati) * 141 (See Alternative - Provider: Diya Prajapati) * 2032 (See Alternative - Provider: Cherie Hathaway, DEACON) * 0856 (See Alternative - Provider: Marisa Bains, DEACON) acetaminophen (TYLENOL) tablet 650 mg(Linked Group 1) 650 mg, Oral, EVERY 6 HOURS PRN, Pain Mild (1-3), Fever, For temp greater than 100.4 F (38 C), Starting on Wed12/13/20 at 2114, Maximum dose of acetaminophen is 4000 mg from all sources in 24 hours. * 0047 (Given - Provider: Florence Stover RN) * 1017 (Given - Provider: Diya Prajapati) * 1642 (Given - Provider: Diya Prajapati) * 0716 (Given - Provider: Diya Prajapati) * 141 (Given - Provider: Diya Prajapati) * 2032 (Given - Provider: Cherie Hathaway, DEACON) * 0856 (Given - Provider: Marisa Bains, DEACON) ondansetron (ZOFRAN) injection 4 mg(Linked Group 2) 4 mg, Intravenous, EVERY 6 HOURS PRN, Nausea, Vomiting, Starting on Wed12/13/20 at 2114, Administer if oral route cannot be used. ondansetron (ZOFRAN-ODT) disintegrating tablet 4 mg(Linked Group 2) 4 mg, Oral, EVERY 8 HOURS PRN, Nausea, Vomiting, Starting on Wed12/13/20 at 2114 polyethylene glycol (GLYCOLAX) packet 17 g 17 g, Oral, DAILY PRN, Constipation, Starting on Wed12/13/20 at 2114, First line therapy for constipation sodium chloride flush 0.9 % injection 10 mL 10 mL, Intravenous, PRN, Line Care, After every IV line use, Starting on Wed12/13/20 at 2114 * 1105 (Given - Provider: Marisa Bains, DEACON) tiZANidine (ZANAFLEX) tablet 4 mg 4 mg, Oral, EVERY 8 HOURS PRN, Muscle pain, Starting on Wed12/13/20 at 2114 zolpidem (AMBIEN) tablet 5 mg 5 mg, Oral, NIGHTLY PRN, Sleep, Starting on Wed12/15/20 at 0030 * 0042 (Given - Provider: Florence Stover, DEACON) * 2256 (Given - Provider: Cherie Hathaway RN) Medication Order//01/2021 remdesivir 100 MG injection (COMPLETED) Starting on 12/14/20 at 0016, For 1 dose, Florence Stover: cabinet override * 0038 (Given - Provider: Florence Stover RN) sterile water injection (COMPLETED) Starting on 12/14/20 at 0017, For 1 dose, Florence Stover: cabinet override * 0038 (Given - Provider: Florence Stover RN) Order Group 1: acetaminophen (TYLENOL) tablet 650 mgJump to med 650 mg, Oral, EVERY 6 HOURS PRN, Pain Mild (1-3), Fever, For temp greater than 100.4 F (38 C), Starting on Wed12/13/20 at 2114
Maximum dose of acetaminophen is 4000 mg from all sources in 24 hours.
Or acetaminophen (TYLENOL) suppository 650 mgJump to med 650 mg, Rectal, EVERY 6 HOURS PRN, Pain Mild (1-3), Fever, For temp greater than 100.4 F (38 C), Starting on Wed12/13/20 at 2114
Administer if oral route cannot be used.
Group 2: ondansetron (ZOFRAN-ODT) disintegrating tablet 4 mgJump to med 4 mg, Oral, EVERY 8 HOURS PRN, Nausea, Vomiting, Starting on Wed12/13/20 at 2114 Or ondansetron (ZOFRAN) injection 4 mgJump to med 4 mg, Intravenous, EVERY 6 HOURS PRN, Nausea, Vomiting, Starting on Wed12/13/20 at 2114
Administer if oral route cannot be used.
Goals (unrecognized section and content) Care Teams (unrecognized sec tion and content) Team Status: Active Member Role Status Dates Florence Freitas DO Primary Care Provider Active Team Status: Inactive Member Role Status Dates Za Liz Orosco APRN Attending Provider Active Start: February 08, 2024 End: February 07[facility] Care ProviderActiveStart: February 08, 2024 End: February 08, 2024 FOR RECORDS PERTAINING TO PATIENTS WHO ARE OR HAVE BEEN ENROLLED IN A CHEMICAL DEPENDENCY/SUBSTANCEABUSE PROGRAM, SOME INFORMATION MAY BE OMITTED. This clinical summary was aggregated from multiple sources. Caution should be exercised in using it in the provision of clinical care. This summary normalizes information from multiple sources, and as a consequence, information in this document may materially change the coding, format and clinical context of patient data. In addition, data may be omitted in some cases. CLINICAL DECISIONS SHOULD BE BASED ON THE PRIMARY CLINICAL RECORDS. [facility] [employer] provides no warranty or guarantee of the accuracy or completeness of information in this document.
--- OUTSIDE RECORDS SUMMARY | 2025-03-05 22:58 | XMS_ITS | Clinical Summary ---
Author Organization [facility] Address [address] [place] [address] Phone Care Team Providers Care Hand Outside Cutter Name Role Phone Unavailable Primary Care Provider Unavailabl e Social History Tobacco UseTypesPacks/DayYears UsedDateSmoking Tobacco: Never AssessedSex and Gender InformationValueDate RecordedSex Assigned at BirthNot on fileLegal Sex Male12/09/2022 5:10 AM EDTGender IdentityNot on fileSexual OrientationNot on file Plan of Treatment Not on file
--- OUTSIDE RECORDS SUMMARY | 2025-03-05 22:58 | XMS_ITS | Clinical Summary ---
Author Organization [facility] Address [address], [address] [place] [address] Care Team Providers Care Play Leader Name Role Phone Anthony Jason MICHEL Primary Care Provider [phone] Allergies Active AllergyReactionsCriticalityNoted QrhhUajypghaNautzj38/22/2020 Previous gastric sleeve surgery; causes GI bleed Medications MedicationSigDispense QuantityRefillsLast FilledStart DateEnd DateStatus pantoprazole (PROTONIX) 40 MG tablet Take 40 mg by mouth dailyActive midodrine (PROAMATINE) 5 MG tablet Take 10 mg by mouth 2 times dailyActive lamoTRIgine (LAMICTAL) 25 MG tablet Take 200 mg by mouth dailyActive fludrocortisone (FLORINEF) 0.1 MG tablet Take 0.1 mg by mouth dailyActive tiZANidine (ZANAFLEX) 4 MG tablet Take 1 tablet by mouth every 8 hours as needed (Muscle pain) 10 tablet 12/08/2020ctive amphetamine-dextroamphetamine (ADDERALL) 10 MG tablet Take 10 mg by mouth once as needed. Every smrvajq3411/22/2020ctive zolpidem (AMBIEN) 5 MG tablet Take 5 mg by mouth once. At ajzabfn9212/02/2020ctive buPROPion (WELLBUTRIN) 100 MG tablet Take 300 mg by mouth dailyActive amphetamine-dextroamphetamine (ADDERALL XR) 20 MG extended release capsule Take 20 mg by mouth every morning.Active zinc sulfate (ZINCATE) 220 (50 Zn) MG capsule Take 2 capsules by mouth daily 30 capsule ctive Ascorbic Acid (VITAMIN C) 1000 MG tablet Take 1 tablet by mouth 2 times daily for 7 days 14 tablet 12/16/2020ctive vitamin D (ERGOCALCIFEROL) 1.25 MG (65014 UT) CAPS capsule Take 1 capsule by mouth once a week 4 capsule 12/16/2020ctive Active Problems ProblemNoted DateDiagnosed DateSick sinus syndrome (HCC) / pacemaker 202012/14/2020einfection by COVID-19 virus / Prior Positive Antibody Test 202012/13/2020 Social History Tobacco UseTypesPacks/DayYears UsedDateSmoking Tobacco: FormerSmokeless Tobacco: Never Tobacco Cessation:Counseling Given: No Alcohol UseStandard Drinks/WeekCommentsNever0 (1 standard drink = 0.6 oz pure alcohol)3 beers a monthSex and Gender InformationValueDate RecordedSex Assigned at BirthNot on fileLegal KyhAjmb2106/19/2012 7:41 PM ESTGender IdentityNot on file Sexual OrientationNot on file Last Filed Vital Signs Vital SignReadingTime TakenCommentsBlood Gcpodxjb052/7707 5:00 AM EDT Aivpw100711/28/2023 5:00 AM RIVLobzdnxtyub73.6 ??C (97.8 ??F)11/27/2023 11:21 PM EDTRespiratory Odzk066311/28/2023 5:00 AM EDTOxygen Kljeisooyd93%11/28/2023 5:00 AM EDTInhaled Oxygen Concentration--Jhvdan86.4 kg (177 lb 3.2 oz)12/16/2020 4:00 AM HGJZjgcmt838.6 cm (5' 6 )12/15/2020 4:15 AM EDTBody Mass Index28.608 4:15 AM EDT Plan of Treatment Health MaintenanceDue DateLast DoneCommentsDepression Lywpcx8911/04/1999Varicella vaccine (1 of 2 - 13+ 2-dose series)11/03/2000HIV vnsskk1811/03/2002Hepatitis C hzmgvb4311/03/2005DTaP/Tdap/Td vaccine (1 - Tdap)11/03/2006Hepatitis B vaccine (1 of 3 - 19+ 3-dose series)11/03/2006Flu vaccine (#1)5COVID-19 Vaccine ( season)2025HPV vaccine (No Doses Required)CompletedHepatitis A vaccineAged OutNo longer eligible based on patient's age to complete this topic Hib vaccineAged OutNo longer eligible based on patient's age to complete this topicMeningococcal (ACWY) vaccineAged OutNo longer eligible based on patient's age to complete this topicMeningococcal B vaccineAged OutNo longer eligible based on patient's age to complete this topicPneumococcal 0-49 years VaccineAged OutNo longer eligible based on patient's age to complete this topicPolio vaccine Aged OutNo longer eligible based on patient's age to complete this topic Medical Devices ImplantedTypeAreaManufacturerDevice IdentifierShelf Expiration DateModel / Serial / LotPacemakerPacemakerLeft: Chest Insurance Advance Directives * Full Code (Latest Code Status on File) Date ActivatedDate InactivatedComments12/13/2020 9:16 PM12/16/2020 5:57 PM NameRelationshipHealthcare Agent RelationshipCommunicationEmily Radha Primary Decision Maker* * * Care Teams Team MemberRelationshipSpecialtyStart DateEnd Date Jason Cruz DO PCP - GeneralFamily Uduheias13/30/20
[2025-03-05 23:08] VITALS: BP 153/89; PULSE 92; TEMP 36.7; O2SAT 100; BMI 28.9
--- NOTE | 2025-03-05 23:15 | XR_ITS ---
The [address] [address] Patient Name: LIMA CASTILLO MRN: [id number] date: 1985 Sex: M Assigned Patient Location: ED.MAIN Current Patient Location: ED.MAIN Accession/Order Number: [id number] Exam Date: 03/05/2025 23:22 Report Date: 03/06/2025 00:01 At the request of: MICHELLE CARRASCO DO Procedure: XR toe LT min 2V 3 views of the right fifth digit INDICATION: Fifth digit injury COMPARISON: None FINDINGS: No fracture dislocation identified. No definite soft tissue swelling. Joint spaces preserved. XR/XR toe LT min 2V IMPRESSION: Negative acute osseous abnormalities. Impression dictated by: Ovi Batista M.D. 03/06/2025 12:01 AM Dictation Location: [place] [address] Electronically authenticated by: [id number] Y Date: 03/06/2025 00:01
--- NOTE | 2025-03-07 01:55 | ED.GENADUL1 ---
HPI HPI - General Adult General Chief complaint: Extremity Injury, Lower Stated complaint: Lower Injury Time Seen by Provider: 03/05/25 23:00 Source: patient Mode of arrival: walk-in Limitations: no limitations History of Present Illness HPI narrative: Patient is a 39-year-old male presenting to the emergency department for evaluation of left foot injury. Patient hit his left foot on a wall 24 hours ago. He noticed some pain and swelling to the area and decided get it checked out today. Of pain on the left side of his foot, he denies any other injuries. He is able to ambulate however it is somewhat painful. He denies any numbness/ting/weakness in the foot. Related Data Home Medications ?Medication ?Instructions ?Recorded ?Confirmed AMPHETAMINE SALTS 10 mg PO DAILY 01/25/23 09/16/23 bupropion HCl 150 mg 24 hr tablet, See Rx Instructions PO BID 01/25/23 09/16/23 extended release fludrocortisone 0.1 mg tablet 0.1 mg PO DAILY 01/25/23 09/16/23 lamotrigine 200 mg tablet 200 mg PO DAILY 01/25/23 09/16/23 (Lamictal) midodrine 10 mg tablet 10 mg PO TID PRN hypotension 01/25/23 09/16/23 pantoprazole 40 mg tablet,delayed 40 mg PO DAILY 01/25/23 09/16/23 release (Protonix) zolpidem 5 mg tablet (Ambien) 5 mg PO .BED PRN insomnia 01/25/23 09/16/23 Allergies Allergy/AdvReac Type Severity Reaction Status Date / Time NSAIDS (Non-Steroidal AdvReac Intermediate Unknown Verified 03/05/25 23:18 Anti-Inflamma Opioid HPI Opioid Management Most Recent Opioid Data: Last Pain Scale 6 03/05/25, 23:08 Review of Systems ROS Status of ROS 10 or more systems reviewed and unremarkable except as noted in history and below PFSH PFSH Social History Little interest or pleasure in doing things: not at all Feeling down, depressed, or hopeless: not at all Exam Narrative Exam Narrative: CONSTITUTIONAL: Well-appearing, answering questions and following commands appropriately SKIN: Was warm and dry. EYES: Sclerae white. EARS, NOSE, THROAT: Moist oral mucosa. RESPIRATORY: Non-labored respirations CARDIOVASCULAR: Normal rate and regular rhythm. Cap refill < 2 sec in the left fifth toe. GASTROINTESTINAL: Abdomen is nondistended. MUSCULOSKELETAL: There is mild soft tissue swelling over the midshaft of the left fifth metatarsal. Able to wiggle his toes. Ambulates with a steady gait. NEUROLOGIC: Patient is awake and alert. Sensation intact to light touch at the left fifth toe. Constitutional Vital Signs, click to edit/add: Last Vital Signs Temp 98.0 F 03/05/25 23:08 Pulse 92 H 03/05/25 23:08 Resp 18 03/05/25 23:08 BP 153/89 H 03/05/25 23:08 Pulse Ox 100 03/05/25 23:08 O2 Del Method Room Air 03/05/25 23:08 Course Vital Signs Vital signs: Vital Signs Temperature 98.0 F 03/05/25 23:08 Pulse Rate 92 H 03/05/25 23:08 Respiratory Rate 18 03/05/25 23:08 Blood Pressure 153/89 H 03/05/25 23:08 Pulse Oximetry 100 03/05/25 23:08 Oxygen Delivery Method Room Air 03/05/25 23:08 Temperature 98.0 F 03/05/25 23:08 Pulse Rate 92 H 03/05/25 23:08 Respiratory Rate 18 03/05/25 23:08 Blood Pressure 153/89 H 03/05/25 23:08 Pulse Oximetry 100 03/05/25 23:08 Oxygen Delivery Method Room Air 03/05/25 23:08 Medical Decision Making MDM Narrative Medical decision making narrative: Patient is a 39-year-old male presenting to the emergency department 24 hours after hitting his left foot on a wall. Vital signs are within normal limits. He is afebrile and hemodynamically stable. Examination is notable for tenderness to palpation and soft tissue swelling over the midshaft left fifth metatarsal. Differential diagnose includes toe fracture, contusion, sprain. X-rays were obtained to rule out underlying fracture. X-rays of the left fifth digit demonstrate no acute osseous abnormalities. I do believe the patient is stable for discharge. They were instructed to follow up with his PCP for further care. Return precautions were given including any new or worsening symptoms. Patient understands and agrees to the plan. FINAL IMPRESSION: #Acute left fifth toe contusion DISPOSITION: Discharged home CONDITION: Good Imaging Data left fifth toe xray: Attestation: I personally reviewed and interpreted this imaging study as follows: Radiologist's impression: ITS Impressions Toe X-Ray 03/05/25 23:15 IMPRESSION: Negative acute osseous abnormalities. Impression dictated by: Ovi Batista M.D. 03/06/2025 12:01 AM Dictation Location: [place] [address] Electronically authenticated by: [id number] Date: 03/06/2025 00:01 Discharge Plan Discharge Chief Complaint: Extremity Injury, Lower Clinical Impression: Injury of toe Patient Disposition: Home, Self-Care Time of Disposition Decision: 23:53 Condition: Good Mode of Transportation: Private Vehicle Prescriptions / Home Meds: No Action midodrine 10 mg tablet 10 mg PO TID PRN (Reason: hypotension) Rx Instructions: do not give last dose of day after 6PM or within 4 hrs of bedtime lamotrigine [Lamictal] 200 mg tablet 200 mg PO DAILY bupropion HCl 150 mg tablet extended release 24 hr See Rx Instructions PO BID Rx Instructions: 2TABS AM , 1 TAB PM orally twice a day; pantoprazole [Protonix] 40 mg tablet,delayed release (DR/EC) 40 mg PO DAILY fludrocortisone 0.1 mg tablet 0.1 mg PO DAILY AMPHETAMINE SALTS 10 mg PO DAILY zolpidem [Ambien] 5 mg tablet 5 mg PO .BED PRN (Reason: insomnia) Print Language: Khmer Instructions: Contusion in Adults (ED) Additional Instructions: Follow up with PCP as needed Referrals: Physician,Non-Staff, MD [Primary Care Provider] - 1 week Discharge Date/Time: 03/06/25 00:09
== END 2025-03-06 00:09 | disposition home or self-care (01) ==
PROVIDERS: Emergency Provider Student in an Organized Health Care Education/Training Program
DX: S99.922A Unspecified injury of left foot, initial encounter (principal); W22.01XA Walked into wall, initial encounter
CPT/HCPCS: 73660; 99283